=== PATIENT | female | born 1945 | race Caucasian/White ===

== ENCOUNTER → 2016-10-16 | Outpatient (CLI) | payer BC, MEDICARE ==
--- NOTE | 2016-10-16 10:29 | RADIOLOGY REPORT (SQ) ---
EXAM DESCRIPTION: HIP LEFT AP/LATERAL COMPLETED DATE/TIME: 10/16/2016 10:03 am REASON FOR STUDY: PAIN IN LEFT HIP COMPARISON: MRI of the hips 01/25/2015 CT abdomen and pelvis 09/21/2015 NUMBER OF VIEWS: Two views. TECHNIQUE: AP pelvis and additional frog-leg view of the left hip. LIMITATIONS: None. FINDINGS: MINERALIZATION: Normal. LEFT HIP: No fracture or dislocation. No worrisome bone lesions. Moderate joint space narrowing is present with minimal bony spurring. RIGHT HIP: No fracture or dislocation. No worrisome bone lesions. Moderate joint space narrowing is present with minimal bony spurring. PUBIS AND ISCHIUM: No fracture. PELVIS: No fracture. SACRUM: No fracture or dislocation. Sclerosis bilateral SI joints. LOWER LUMBAR SPINE: No fracture or dislocation. No worrisome bone lesions. No significant disc disea se. SOFT TISSUES: No findings. OTHER: No other significant finding. IMPRESSION: No acute fracture. 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 TECHNICAL DOCUMENTATION: JOB ID: [id number] [employer]- All Rights Reserved
== END ==
LOC: RAD 09:17
PROVIDERS: ATTEND Physician Assistant
DX: M25.552 Pain in left hip (principal)

== ENCOUNTER → 2016-10-26 | Outpatient (CLI) | payer BC, MEDICARE ==
--- NOTE | 2016-10-26 10:09 | WOMENS IMAGING REPORT ---
EXAM DESCRIPTION: BILAT DIAGNOSTIC MAMMO W/CAD; U/S BREAST UNILAT LIMITED COMPLETED DATE/TIME: 10/26/2016 8:40 am; 10/26/2016 9:30 am REASON FOR STUDY: N63, BREAST LUMP; LT BREAST N63 N63 UNSPECIFIED LUMP IN BREAST COMPARISON: 08/07/2013 and 08/04/2012. TECHNIQUE: Standard craniocaudal and mediolateral oblique views of each breast recorded using digita l acquisition. Additional images of the left breast include a true lateral view and spot compression MLO and CC view s. LIMITATIONS: None. FINDINGS: RIGHT BREAST MASSES: No suspicious masses. CALCIFICATIONS: No new or suspicious calcifications. ARCHITECTURAL DISTORTION: None. DEVELOPING DENSITY: None. ASYMMETRY: None noted. OTHER: No other significant findings. LEFT BREAST MASSES: Irregular spiculated mass in the upper outer breast located roughly 5 cm from the nipple. Ov erall measurement approximately 1 x 2 cm. Smaller irregular 6 mm lesion located more posteriorly, ap proximately 9.5 cm from the nipple. CALCIFICATIONS: Several calcifications associated with the spiculated mass. ARCHITECTURAL DISTORTION: None. DEVELOPING DENSITY: None. ASYMMETRY: None noted. OTHER: No other significant finding. Read with the assistance of CAD: .[facility] - R2 Cenova Version 1.3 .[facility] Imaging - R2 Cenova Version 1.3 .[facility] Imaging - R2 Cenova Version 2.4 .[facility] [place] - R2 Cenova Version 2.4 .[facility] - R2 Labor Conciliator Version 9.2 BREAST ULTRASOUND: TECHNIQUE: Static and dynamic grayscale images acquired of the left breast in the specific areas of c linical/mammographic concern. Selected color Doppler images recorded. ELASTOGRAPHY PERFORMED: No. LIMITATIONS: None. FINDINGS: MASS: There is an irregular hypoechoic solid mass in the upper-outer breast measuring roughly 2.6 x 3 .0 cm. Margins are indistinct. Images of the axilla demonstrate a few unremarkable appearing lymph nodes. ELASTOGRAPHY CHARACTERISTICS: Not applicable. OTHER: No other significant finding. IMPRESSION: Irregular spiculated solid mass in the upper-outer breast which corresponds with the pal pable finding. 2nd smaller lesion located more posteriorly. Findings are concerning for malignancy. BREAST DENSITY: b. There are scattered areas of fibroglandular density. BIRAD: 5 Highly suggestive of malignancy. Appropriate action should be taken. RECOMMENDATION: RECOMMENDED FOLLOW UP: Birads 5: Biopsy should be performed in the absence of clinic al contraindication. SPECIFIC INTERVENTION/IMAGING/CONSULTATION RECOMMENDED:The suspicious finding(s) amenable to US guide d core/vacuum assisted biopsy. COMMUNICATION:The imaging findings were discussed with the patient. Her referring provider has also b een notified of the findings. COMMENT: The patient has been notified of the results by letter per SA requirements. Additional no tification policies are in place for contacting patient with suspicious or incomplete findings. Quality ID #225: The [employer] recommends an annual screening mammogram for women aged 40 years or over. This facility utilizes a reminder system to ensure that all patients receive reminder letters, and/or direct phone calls for appointments. This includes reminders for routine scr eening mammograms, diagnostic mammograms, or other Breast Imaging Interventions when appropriate. Th is patient will be placed in the appropriate reminder system. The [employer] (ACR) has developed recommendations for screening MRI of the breast s in certain patient populations, to be used in conjunction with mammography. Breast MRI surveillanc e may be appropriate for women with more than 20% lifetime risk of developing breast cancer as deter mined by genetic testing, significant family history of the disease, or history of mantle radiation f or Hodgkins Disease. ACR Practice Guidelines 2008. TECHNICAL DOCUMENTATION: FINDING NUMBER: (1) ASSESSMENT: (1) JOB ID: [id number] [employer]- All Rights Reserved
--- NOTE | 2016-10-26 10:09 | WOMENS IMAGING REPORT ---
EXAM DESCRIPTION: BILAT DIAGNOSTIC MAMMO W/CAD; U/S BREAST UNILAT LIMITED COMPLETED DATE/TIME: 10/26/2016 8:40 am; 10/26/2016 9:30 am REASON FOR STUDY: N63, BREAST LUMP; LT BREAST N63 N63 UNSPECIFIED LUMP IN BREAST COMPARISON: 08/07/2013 and 08/04/2012. TECHNIQUE: Standard craniocaudal and mediolateral oblique views of each breast recorded using digita l acquisition. Additional images of the left breast include a true lateral view and spot compression MLO and CC view s. LIMITATIONS: None. FINDINGS: RIGHT BREAST MASSES: No suspicious masses. CALCIFICATIONS: No new or suspicious calcifications. ARCHITECTURAL DISTORTION: None. DEVELOPING DENSITY: None. ASYMMETRY: None noted. OTHER: No other significant findings. LEFT BREAST MASSES: Irregular spiculated mass in the upper outer breast located roughly 5 cm from the nipple. Ov erall measurement approximately 1 x 2 cm. Smaller irregular 6 mm lesion located more posteriorly, ap proximately 9.5 cm from the nipple. CALCIFICATIONS: Several calcifications associated with the spiculated mass. ARCHITECTURAL DISTORTION: None. DEVELOPING DENSITY: None. ASYMMETRY: None noted. OTHER: No other significant finding. Read with the assistance of CAD: .[facility] - R2 Cenova Version 1.3 .[facility] Imaging - R2 Cenova Version 1.3 .[facility] Imaging - R2 Cenova Version 2.4 .[facility] - R2 Cenova Version 2.4 .[facility] - R2 Toe Stapler Version 9.2 BREAST ULTRASOUND: TECHNIQUE: Static and dynamic grayscale images acquired of the left breast in the specific areas of c linical/mammographic concern. Selected color Doppler images recorded. ELASTOGRAPHY PERFORMED: No. LIMITATIONS: None. FINDINGS: MASS: There is an irregular hypoechoic solid mass in the upper-outer breast measuring roughly 2.6 x 3 .0 cm. Margins are indistinct. Images of the axilla demonstrate a few unremarkable appearing lymph nodes. ELASTOGRAPHY CHARACTERISTICS: Not applicable. OTHER: No other significant finding. IMPRESSION: Irregular spiculated solid mass in the upper-outer breast which corresponds with the pal pable finding. 2nd smaller lesion located more posteriorly. Findings are concerning for malignancy. BREAST DENSITY: b. There are scattered areas of fibroglandular density. BIRAD: 5 Highly suggestive of malignancy. Appropriate action should be taken. RECOMMENDATION: RECOMMENDED FOLLOW UP: Birads 5: Biopsy should be performed in the absence of clinic al contraindication. SPECIFIC INTERVENTION/IMAGING/CONSULTATION RECOMMENDED:The suspicious finding(s) amenable to US guide d core/vacuum assisted biopsy. COMMUNICATION:The imaging findings were discussed with the patient. Her referring provider has also b een notified of the findings. COMMENT: The patient has been notified of the results by letter per SA requirements. Additional no tification policies are in place for contacting patient with suspicious or incomplete findings. Quality ID #225: The [employer] recommends an annual screening mammogram for women aged 40 years or over. This facility utilizes a reminder system to ensure that all patients receive reminder letters, and/or direct phone calls for appointments. This includes reminders for routine scr eening mammograms, diagnostic mammograms, or other Breast Imaging Interventions when appropriate. Th is patient will be placed in the appropriate reminder system. The [employer] (ACR) has developed recommendations for screening MRI of the breast s in certain patient populations, to be used in conjunction with mammography. Breast MRI surveillanc e may be appropriate for women with more than 20% lifetime risk of developing breast cancer as deter mined by genetic testing, significant family history of the disease, or history of mantle radiation f or Hodgkins Disease. ACR Practice Guidelines 2008. TECHNICAL DOCUMENTATION: FINDING NUMBER: (1) ASSESSMENT: (1) JOB ID: [id number] [employer]- All Rights Reserved
== END ==
LOC: WI 09:50
PROVIDERS: ATTEND Physician Assistant
DX: N63 Unspecified lump in breast (principal)
CPT/HCPCS: 76642; G0204; 77066

== ENCOUNTER → 2016-12-11 | Outpatient (CLI) | payer BC, MEDICARE ==
--- NOTE | 2016-12-11 09:56 | RADIOLOGY REPORT (SQ) ---
EXAM DESCRIPTION: CHEST PA/LATERAL COMPLETED DATE/TIME: 12/11/2016 9:26 am REASON FOR STUDY: BREAST CA COMPARISON: 06/27/2014 EXAM PARAMETERS: NUMBER OF VIEWS: two views TECHNIQUE: Digital Frontal and Lateral radiographic views of the chest acquired. RADIATION DOSE: NA LIMITATIONS: none FINDINGS: LUNGS AND PLEURA: Abnormal masslike density in the right apex measuring about 3 cm. MEDIASTINUM AND HILAR STRUCTURES: No masses or contour abnormalities. HEART AND VASCULAR STRUCTURES: Heart normal size. No evidence for failure. BONES: No acute findings. HARDWARE: None in the chest. OTHER: No other significant finding. IMPRESSION: Pneumonia versus mass in the right apex. TECHNICAL DOCUMENTATION: JOB ID: [id number] [employer]- All Rights Reserved
== END ==
LOC: OD 09:10
PROVIDERS: ATTEND Surgery
DX: C50.912 Malignant neoplasm of unspecified site of left female breast (principal)
CPT/HCPCS: 71020

== ENCOUNTER 2016-12-29 10:23 | Day surgery (SDC) | payer BC, MEDICARE ==
[2016-12-22 10:29] LABS: HEMATOCRIT 45.2 % (36.0-47.0); HEMOGLOBIN 15.7 g/dL (12.0-15.5); HGB HCT DIFFERENCE 1.9; MEAN CORPUSCULAR HEMOGLOBIN 32.1 pg (27.0-33.4); MEAN CORPUSCULAR HGB CONC 34.8 g/dL (32.0-36.0); MEAN CORPUSCULAR VOLUME 92 fl (80-97); RED CELL DISTRIBUTION WIDTH 13.7 % (11.5-14.0); WHITE BLOOD COUNT 8.5 10^3/uL (4.0-10.5)
--- NOTE | 2016-12-22 10:59 | EKG REPORT ---
SEVERITY:- ABNORMAL ECG - SINUS RHYTHM PROBABLE LEFT VENTRICULAR HYPERTROPHY : Confirmed by: Brad Arnold 22-Dec-2016 10:58:27
[~2016-12-29 10:23] MED LIST: DEXAMETHASONE SOD PHOSPHATE INJ 4 MG/1 ML VIAL ONE; GLYCOPYRROLATE INJ 0.4 MG/2 ML VIAL ONE; LACTATED RINGERS 1000 ML IV PRN; LIDOCAINE 0.5% INJ-PF (5 MG/ML) 50 ML SDV SUBCUT PRN; LIDOCAINE 2% INJ-PF (20 MG/ML) 10 ML AMPUL ONE; LIDOCAINE 4% TRANSPARENT DRESSING 5 GM KIT TP PRN; ONDANSETRON HCL INJ/PF 4 MG/2 ML SDV ONE; SUCCINYLCHOLINE CHLORIDE INJ 200 MG/10 ML VIAL ONE
[2016-12-29 11:12] LABS: PROTHROMBIN TIME 12.9 SEC (11.4-15.4)
[2016-12-29 11:13] LABS: PARTIAL THROMBOPLASTIN TIME 28.7 SEC (23.5-35.8)
[2016-12-29 11:23] LABS: ANION GAP 10 (5-19); BLOOD UREA NITROGEN 28 mg/dL (7-20); CALCIUM 9.8 mg/dL (8.4-10.2); CARBON DIOXIDE 25 mmol/L (22-30); CHLORIDE 107 mmol/L (98-107); CREATININE RESULT 1.33 mg/dL (0.52-1.25); GLUCOSE 108 mg/dL (75-110); POTASSIUM 4.5 mmol/L (3.6-5.0)
[2016-12-29] MEDS ORDERED: CEFAZOLIN 1 GM/D5W RTU 1 GM/50 ML RTUPB IV ONE (15:51)
[2016-12-29] MEDS ORDERED: SCOPOLAMINE HYDROBROMIDE 1.5 MG PATCH.TD72 ONE (15:59)
[2016-12-29] MEDS ORDERED: ACETAMINOPHEN 100 ML IV ONE (17:12)
[2016-12-29] MEDS ORDERED: PROPOFOL INJ 200 MG/20 ML VIAL IV ONE (17:12)
[2016-12-29] MEDS ORDERED: IBUPROFEN INJ 800 MG/8 ML VIAL IV ONE (17:12)
[2016-12-29] MEDS ORDERED: MIDAZOLAM 2 MG/2 ML INJ ONE (17:12)
[2016-12-29] MEDS ORDERED: FENTANYL CITRATE INJ/PF 250 MCG/5 ML AMPULE ONE (17:12)
[2016-12-29] MEDS ORDERED: HYDROMORPHONE HCL INJ/PF 2 MG/ML AMPULE ONE (17:13)
[2016-12-29] MEDS ORDERED: METHYLENE BLUE 50 MG/10 ML AMPULE ONE (17:17)
[2016-12-29] MEDS ORDERED: MICROFIBRILLAR COLLAGEN 1 GM PACK ONE (17:17)
[2016-12-29] MEDS ORDERED: LIDOCAINE 1%/EPINEPHRINE INJ 20 ML VIAL ONE (17:18)
[2016-12-29] MEDS ORDERED: ALBUTEROL SULFATE 0.083% NEB 2.5 MG/3 ML AMPUL NEB ONE (17:36)
[2016-12-29] MEDS ORDERED: FENTANYL CITRATE INJ/PF 100 MCG/2 ML AMPUL IV PRN ×3 (18:59)
[2016-12-29] MEDS ORDERED: MEPERIDINE HCL/PF INJ 25 MG/1 ML DISP.SYRIN IV PRN (18:59)
[2016-12-29] MEDS ORDERED: PROMETHAZINE HCL INJ 25 MG/1 ML VIAL IV PRN (18:59)
[2016-12-29] MEDS ORDERED: DIPHENHYDRAMINE HCL 50 MG/ML VIAL IV PRN (18:59)
[2016-12-29] MEDS ORDERED: HYDROMORPHONE HCL INJ/PF 2 MG/ML AMPULE IV ONE (19:41)
[2016-12-29] MEDS ORDERED: OXYCODONE-ACETAMINOPHEN 5-325 MG TABLET PO PRN (19:41)
[2016-12-29] MEDS ORDERED: KETOROLAC TROMETHAMINE 10 MG TABLET PO PRN (19:41)
[2016-12-29] MEDS ORDERED: ONDANSETRON HCL INJ/PF 4 MG/2 ML SDV IV PRN (19:41)
[2016-12-29] MEDS ORDERED: RINGERS SOLUTION,LACTATED 1,000 ML IV PRN (19:56)
[2016-12-29] MEDS: FENTANYL CITRATE INJ/PF 100 MCG/2 ML AMPUL ONE ×2 (20:04→20:09)
--- NOTE | 2016-12-29 21:02 | OPERATIVE REPORT E ---
Operative Report NAME: IKER CALDWELL : 1945 AGE: 71Y DATE OF SURGERY: 12/29/2016 ROOM: PREOPERATIVE DIAGNOSIS: Invasive left breast carcinoma. POSTOPERATIVE DIAGNOSIS: Invasive left breast carcinoma. OPERATION: 1. [place] lymph node biopsy of left axilla. 2. Left mastectomy with drain placement. SURGEON: ELLY LANDEROS M.D. ANESTHESIA: General. COMPLICATIONS: None. ESTIMATED BLOOD LOSS: Minimal. DRAINS: One large Genaro. COMPLICATIONS: None. SUMMARY OF PROCEDURE: Patient was taken from the preop holding area to the radiology suite where she underwent lymph node scintography of the left breast and axilla. She had an area of increased uptake in the left axilla. She was taken to the operating room where general anesthesia was induced. The left arm was abducted, the left breast exposed, and blue dye, 50% diluted, methylene blue, was injected into the left breast at the 2 o'clock position, areolar border, approximately 2.5 mL in the intradermal position. The left breast was massaged, then the left breast and neck were prepped and draped in sterile fashion. Surgical plan and surgical time-out were conducted. Markings were made on the skin for a large elliptical incision consistent with a mastectomy. Of note, the tumor was in the upper outer quadrant of the left breast. It was quite generous by palpable. Superior and inferior skin flaps were raised and the breast was taken off the chest wall from the subclavicular area to the parasternal tissue and then inferiorly down to the serratus anterior muscle. The left axilla was exposed. [place] node biopsy was commenced. There was one area of increased activity, and a blue hot lymph node was identified. In vivo count was 6458 and ex vivo count after harvesting the sentinel lymph node was 8405. There were no other sentinel lymph nodes identified. The breast was taken off just distal to the tail of Fraser and passed to pathology with a long suture in the lateral position, a short suture in the superior position. [place] node was sent separately, all for permanent analysis. A large Genaro drain was placed in the inferior skin flap and sewed to the skin with 2-0 Prolene suture. The wound was closed with 2-0 Vicryl suture in a running continuous fashion. Dermabond glue applied. Patient tolerated the procedure well, extubated, and taken to the recovery room in stable condition. DICTATING PHYSICIAN: ELLY LANDEROS M.D. [id number] PHY#: [id number] ID: [id number] JOB#: [id number] ACCT: [id number] cc:ELLY LANDEROS M.D. >
[2016-12-29] MEDS ORDERED: SIMVASTATIN 10 MG TABLET PO SCH (22:00)
[2016-12-29] MEDS ORDERED: NIFEDIPINE 10 MG CAPSULE PO ONE (22:15)
[2016-12-30 08:44] VITALS: BP 95/53
[2016-12-30] MEDS ORDERED: OMEGA PO SCH (10:00)
[2016-12-30] MEDS ORDERED: OMEGA-3 ACID ETHYL ESTERS 1 GM CAPSULE PO SCH (10:00)
[2016-12-30] MEDS ORDERED: ASPIRIN 81 MG TABLET, CHEWABLE PO SCH (10:00)
[2016-12-30] MEDS ORDERED: DOCUSATE SODIUM 100 MG CAPSULE PO SCH (10:00)
[2016-12-30] MEDS ORDERED: NIFEDIPINE 10 MG CAPSULE PO SCH (10:00)
[2016-12-30] MEDS ORDERED: FLUTICASONE PROPIONATE IH SCH (10:00)
[2016-12-30] MEDS ORDERED: CLOPIDOGREL BISULFATE 75 MG TABLET PO SCH (10:00)
[2016-12-30] MEDS ORDERED: FATTY ACIDS PO SCH (10:00)
[2016-12-30] MEDS ORDERED: MULTIVITAMIN TABLET PO SCH (10:00)
[2016-12-30] MEDS ORDERED: FISH OIL PO SCH (10:00)
[2016-12-30] MEDS ORDERED: ONDANSETRON HCL INJ/PF 4 MG/2 ML SDV IV PRN (11:00)
--- NOTE | 2016-12-30 12:02 | DISCHARGE SUMMARY E ---
Discharge Summary NAME: IKER CALDWELL : 1945 AGE: 71Y ADMITTED: 12/29/2016 DISCHARGED: 12/30/2016 SUMMARY OF HOSPITALIZATION: The patient is a 71-year-old white female with a history of left breast carcinoma who was brought to Ambulatory Surgery for definitive management. The patient was taken from Ambulatory Surgery to the radiology suite where she underwent lymphoscintigraphy, and this showed mapping into the left axilla. She was taken to the operating room where she underwent left mastectomy with sentinel node biopsy using dual-mapping technique. She had a drain placed. Postoperatively she had no complications, was recovered on the floor, and the following morning she was ready for discharge home. FINAL DIAGNOSIS: Invasive breast cancer, status post left mastectomy with sentinel node biopsy. DISPOSITION: The patient will be discharged home in the care of her family. Follow up with Dr. Yoon in approximately 1 to 2 weeks. Take Percocet p.r.n. pain; prescription provided. DICTATING PHYSICIAN: ELLY YOON M.D. [id number] PHY#: [id number] ID: [id number] JOB#: [id number] ACCT: [id number] cc:ELLY YOON M.D. >
--- NOTE | 2017-01-03 13:08 | RADIOLOGY REPORT (SQ) ---
EXAM DESCRIPTION: NM LYMPHATICS/LYMPH GLANDS COMPLETED DATE/TIME: 12/29/2016 12:54 pm REASON FOR STUDY: Malignant neoplasm left breast C50.911 MALIGNANT NEOPLASM OF UNSP SITE OF RIGHT F RODO MARTINEZ COMPARISON: Two-view chest 12/11/2016 left breast diagnostic mammograms and ultrasound 10/26/2016 RADIONUCLIDE AND DOSE: 500 in 10 microcuries TC-99mtilmanocept - Lymphoseek. The route of agent administration: Subcutaneous in the skin. TECHNIQUE: The skin of the left breast was prepped in sterile fashion. The radiopharmaceutical was administered in equally divided doses in the periareolar breast. LIMITATIONS: Injected activity is identified at the nipple. However, there is activity in the urina ry bladder and transverse colon. This case is being reviewed with the nuclear pharmacy. FINDINGS: Images demonstrate activity at the injection site. IMPRESSION: ADMINISTRATION OF RADIOPHARMACEUTICAL FOR SENTINEL LYMPH NODE EVALUATION. TECHNICAL DOCUMENTATION: JOB ID: [id number] [employer]- All Rights Reserved
== END 2016-12-30 09:45 | disposition home or self-care (01) ==
LOC: OROUT 10:23 → 4N 20:56 → OROUT 12-30 09:45
PROVIDERS: ATTEND Surgery
PROC: 07B60ZX Excision of Left Axillary Lymphatic, Open Approach, Diagnostic (ICD-10-PCS; 2016-12-29)
PROC: 0HTU0ZZ Resection of Left Breast, Open Approach (ICD-10-PCS; principal; 2016-12-29 13:30)
DX: J44.9 Chronic obstructive pulmonary disease, unspecified (principal); F17.210 Nicotine dependence, cigarettes, uncomplicated; Z86.718 Personal history of other venous thrombosis and embolism; I10 Essential (primary) hypertension; M19.90 Unspecified osteoarthritis, unspecified site; Z86.73 Personal history of transient ischemic attack (TIA), and cerebral infarction without residual deficits; E04.1 Nontoxic single thyroid nodule; I25.2 Old myocardial infarction; E78.5 Hyperlipidemia, unspecified; Z88.8 Allergy status to other drugs, medicaments and biological substances; Z79.51 Long term (current) use of inhaled steroids; Z79.02 Long term (current) use of antithrombotics/antiplatelets; Z79.82 Long term (current) use of aspirin; C50.812 Malignant neoplasm of overlapping sites of left female breast
CPT/HCPCS: 93005; 36415 ×2; 85027; 85610; 85730; 80048; 88342 ×2; 88307 ×2; 78195; 93010; 19307; A9520; J2250; J0690; J1100; J3010 ×2; J3490 ×3; J0330; J2405; J2704; J0131; J1741; Q9968; 1610; J1170

== ENCOUNTER 2017-02-19 14:00 | Emergency (ER) | payer BC, MEDICARE ==
[2017-02-19 14:06] VITALS: BP 158/71
--- NOTE | 2017-02-19 14:46 | ER Document Report ---
ED General - General Chief Complaint: Hip Pain Stated Complaint: HIP PAIN Time Seen by Provider: 02/19/17 14:39 Notes: Patient is a 71-year-old female presents emergency department complaining of left lower back pain with sciatica. Patient states that she has had sciatica for years and over the past couple of days it has been more severe. Patient states that she does have a history of breast cancer that was resected in December receiving chemotherapy Dr. Fisher. Patient has been taking Tylenol at home with some relief in her pain. Patient states that she still would like to try a muscle relaxer which is been beneficial for her in the past. Patient is able to ambulate. Denies any urinary/incontinence, saddle anesthesia. Denies any trauma or fall TRAVEL OUTSIDE OF THE [place] IN LAST 30 DAYS: No - Related Data Allergies/Adverse Reactions: cilostazol [From Pletal] Adverse Reaction (Intermediate, Verified 02/19/17 14:04 ) Dizziness Past Medical History - Social History Smoking Status: Current Every Day Smoker Chew tobacco use (# tins/day): No Frequency of alcohol use: None Drug Abuse: None Family History: Other - Mother with colitis, sister with Crohn's. - Past Medical History Cardiac Medical History: Reports: Hx Heart Attack, Hx Hypercholesterolemia, Hx Hypertension Denies: Hx Coronary Artery Disease Pulmonary Medical History: Reports: Hx COPD, Hx Pneumonia - A BABY Denies: Hx Asthma, Hx Bronchitis Neurological Medical History: Denies: Hx Cerebrovascular Accident, Hx Seizures Renal/ Medical History: Denies: Hx Peritoneal Dialysis Musculoskeltal Medical History: Reports Hx Arthritis Past Surgical History: Reports: Hx Abdominal Surgery - barium study 10/18/11, Hx Breast Surgery - Left mastectomy, Hx Cardiac Surgery - carotid artery cleaned , Hx Tubal Ligation - Immunizations Hx Diphtheria, Pertussis, Tetanus Vaccination: Yes Hx Pneumococcal Vaccination: 05/16/15 Review of Systems - Review of Systems Constitutional: No symptoms reported Musculoskeletal: See HPI Neurological/Psychological: See HPI -: Yes All other systems reviewed and negative Physical Exam - Vital signs Vitals: Temp Pulse Resp BP Pulse Ox 97.6 F 85 24 H 158/71 H 91 L 02/19/17 14:05 02/19/17 14:05 02/19/17 14:05 02/19/17 14:05 02/19/17 14:05 - Notes Notes: PHYSICAL EXAM GENERAL: Alert, interacts well. Back: No evidence of spinous process tenderness, deformities, step-offs. Patient with left paralumbar muscular tenderness with pain reproducible on exam. EXTREMITIES: Moves all 4 extremities spontaneously.Pelvis stable without any pain. Hip nontender to palpation or with passive or active range of motion.No edema, radial and dorsalis pedis pulses 2/4 bilaterally. No cyanosis. NEUROLOGICAL: Alert and oriented x4. Normal speech. PSYCH: Normal affect, normal mood. SKIN: Warm, dry, normal turgor. No rashes or lesions noted. Course - Re-evaluation Re-evalutation: 02/19/17 15:27 Patient is a 71-year-old female who is hemodynamically stable, no acute distress afebrile. Given recent cancer history, pelvis x-ray was ordered to rule out any mass with comparison to previous pelvis x-ray. This was negative. Given that patient states that this pain is reproducible to palpation and similar to her sciatica no other imaging is required at this time. The patient presents with low back pain without signs of spinal cord compression, cauda equina syndrome, infection, aneurysm, or other serious etiology. The patient is neurologically intact. Given the extremely low risk of these diagnoses further testing and evaluation for these possibilities does not appear to be indicated at this time. The patient has been instructed to return if the symptoms worsen or change in any way. - Vital Signs Vital signs: Temp Pulse Resp BP Pulse Ox 97.6 F 85 24 H 158/71 H 91 L 02/19/17 14:05 02/19/17 14:05 02/19/17 14:05 02/19/17 14:05 02/19/17 14:05 - Diagnostic Test Radiology reviewed: Image reviewed, Reports reviewed Discharge - Discharge Clinical Impression: Low back pain Qualifiers: Chronicity: chronic Back pain laterality: left Sciatica presence: with sciatica Sciatica laterality: sciatica of left side Qualified Code(s): M54.42 - Lumbago with sciatica, left side Condition: Good Disposition: HOME, SELF-CARE Additional Instructions: LOW BACK PAIN: Three out of every four people will have an episode of disabling back pain during their lifetime. Most commonly the pain is due to straining of the muscles and ligaments in the low back. Usual treatment includes: (1) Rest on a firm surface. Avoid lying on your stomach. (2) Ice pack the painful area. After a few days, gentle heat may be used intermittently to relax the area, or ice packs can be continued. (3) Medication may be needed -- muscle relaxers and antiinflammatory medicines are commonly used. (4) As the back improves, exercises are prescribed to strengthen the back and abdominal muscles. Your doctor will advise you on the proper care for your back at each stage in your recovery. You may be better in a few days -- or healing may take several weeks. If new symptoms of a "herniated disc" (radiation of pain, numbness, or tingling down the back of the leg or weakness in the leg) occur, you should be re-examined. Further testing may be necessary. MUSCLE RELAXERS: Muscle relaxing medications are usually prescribed for acute muscle spasm or injury to the neck and back. They are often combined with antiinflammatory pain medication for increased relief. You may stop the muscle relaxer when the pain and stiffness have improved. Start the medication again if spasms recur. Muscle relaxers may cause drowsiness, especially with the first dose. Do not operate machinery or drive while under the effects of the medication. Most muscle relaxers last up to 24 hours. Do not combine the medication with alcohol. ICE PACKS: Apply ice packs frequently against the painful area. Many different schedules are recommended, such as "20 minutes on, 20 minutes off" or "one hour ice, two hours rest." If you need to work, you may need to go longer between ice treatments. You should plan to have the area ice packed AT LEAST one fourth of the time. The ice should be applied over the wrap, tape, or splint, or over a layer of cloth -- not directly against the skin. Some ice bags have a built-in cloth and can be put directly on the skin. WARM PACKS: After approximately two days, apply gentle heat (such as a heating pad or hot water bottle) for about 20 to 30 minutes about every two hours -- at least four times daily. Warmth and elevation will help you make a more rapid recovery , and will ease the pain considerably. Do not use HOT heat, and never apply heat for longer than 30 minutes. The continuous heat can invisibly damage skin and muscles -- even when no burn is seen on the surface. Damaged muscles can make you MORE sore. FOLLOW-UP CARE: If you have been referred to a physician for follow-up care, call the physician s office for an appointment as you were instructed or within the next two days. If you experience worsening or a significant change in your symptoms, notify the physician immediately or return to the Emergency Department at any time for re-evaluation. Prescriptions: Cyclobenzaprine HCl [Flexeril 10 mg Tablet] 10 mg PO TIDP PRN #15 tab PRN Reason: Referrals: CHUY ROBERTS MD [ACTIVE STAFF] - Follow up in 1 week
--- NOTE | 2017-02-19 15:11 | RADIOLOGY REPORT (SQ) ---
EXAM DESCRIPTION: PELVIS AP COMPLETED DATE/TIME: 02/19/2017 3:00 pm REASON FOR STUDY: left sciatic pain x1 wk/ h/o breast ca on chemo COMPARISON: 10/16/2016 NUMBER OF VIEWS: One view TECHNIQUE: AP Pelvis LIMITATIONS: None. FINDINGS: MINERALIZATION: Normal. HIPS: Stable degenerative change. No acute fracture or dislocation. No worrisome bone lesions. PELVIS AND SACRUM: Stable degree of sacroiliitis. No acute fracture or dislocation. No worrisome bon e lesions. PUBIS AND ISCHIUM: No acute fracture. LOWER LUMBAR SPINE: No significant findings as visualized. SOFT TISSUES: Vascular calcifications. OTHER: No other significant finding. IMPRESSION: NO ACUTE OSSEOUS ABNORMALITY. NO SIGNIFICANT CHANGE FROM PRIOR STUDY. TECHNICAL DOCUMENTATION: JOB ID: [id number] [employer]- All Rights Reserved
[2017-02-19] MEDS ORDERED: CYCLOBENZAPRINE HCL 10 MG TABLET PO ONE (15:24)
== END 2017-02-19 15:50 | disposition home or self-care (01) ==
LOC: ER 14:00
DX: M54.42 Lumbago with sciatica, left side (principal); M25.559 Pain in unspecified hip; M54.5 Low back pain; Z79.899 Other long term (current) drug therapy; F17.200 Nicotine dependence, unspecified, uncomplicated
CPT/HCPCS: 72170; 99283

== ENCOUNTER → 2017-03-01 | Outpatient (CLI) | payer BC, MEDICARE ==
--- NOTE | 2017-03-01 10:46 | WOMENS IMAGING REPORT ---
EXAM DESCRIPTION: BONE DENSITY HIP/SPINE COMPLETED DATE/TIME: 03/01/2017 10:24 am REASON FOR STUDY: OSTEOPOROSIS M81.0 AGE-RELATED OSTEOPOROSIS W/O CURRENT PATHOLOGICAL FRAC COMPARISON: 2008, 2012, 2014 TECHNIQUE: Dual-Energy X-ray Absorptiometry (DEXA) of the AP Spine and Hip. LIMITATIONS: None. FINDINGS: LUMBAR SPINE: The bone mineral density (BMD) measured from L1-L4 in the AP projection correlates with a T-score of -2.5, which is osteoporotic as defined by the World Health Organization. This is stable compared to previous studies HIP: The bone mineral density (BMD) measured in the left femoral neck at the hip correlates with a T-score of -2.8, which is osteoporotic as defined by the World Health Organization. This represents an 11% decline since bone density assessment in 2012 and 2014 IMPRESSION: 1. LUMBAR SPINE: Osteoporotic 2. HIP: Osteoporotic COMMENT: The World Health Organization defines low BMD as follows: T-score: Normal: Greater than -1.0 Osteopenia: Between -1.0 and -2.5 Osteoporosis: Less than -2.5 without fractures Established osteoporosis: Less than -2.5 with fractures In general, you may wish to consider: Diagnosis Treatment Follow-up DEXA Normal BMD Prevention 2-3 years Osteopenia Prevention/Therapy 1-2 years Osteoporosis Therapy Yearly TECHNICAL DOCUMENTATION: JOB ID: [id number]- All Rights Reserved
== END ==
LOC: WI 09:48
PROVIDERS: ATTEND Internal Medicine
DX: M81.0 Age-related osteoporosis without current pathological fracture (principal)
CPT/HCPCS: 77080

== ENCOUNTER → 2017-10-26 | Outpatient (CLI) | payer MEDICARE, BC ==
--- NOTE | 2017-10-27 19:53 | WOMENS IMAGING REPORT ---
EXAM DESCRIPTION: 3D SCREENING MAMMO RIGHT COMPLETED DATE/TIME: 10/26/2017 9:21 am REASON FOR STUDY: ROUTINE SCREENING;Z12.31 Z12.31 ENCNTR SCREEN MAMMOGRAM FOR MALIGNANT NEOPLASM OF HUYEN COMPARISON: Multiple since 2008 TECHNIQUE: Standard craniocaudal and mediolateral oblique views of the right breast recorded using d igital acquisition and breast tomosynthesis. Post left mastectomy in 2017. LIMITATIONS: None. FINDINGS: BREAST: Right No masses, calcifications or architectural distortion. No areas of suspicion. Read with the assistance of CAD. .[facility] - R2 Cenova Version 1.3 .[facility] - R2 Cenova Version 1.3 .[facility] - R2 Cenova Version 2.4 .[facility] - R2 Cenova Version 2.4 .[facility] - R2 [employer] Version 9.2 IMPRESSION: NORMAL MAMMOGRAM. BIRADS 1. BREAST DENSITY: b. There are scattered areas of fibroglandular density. BIRAD: 1 Negative RECOMMENDATION: RECOMMENDATION: ROUTINE SCREENING. Please continue yearly screening tomosynthesis in October 2018 COMMENT: The patient has been notified of the results by letter per MQSA requirements. Additional no tification policies are in place for contacting patient with suspicious or incomplete findings. Quality ID #[id number]: The [employer] recommends an annual screening mammogram for women aged 40 years or over. This facility utilizes a reminder system to ensure that all patients receive reminder letters, and/or direct phone calls for appointments. This includes reminders for routine scr eening mammograms, diagnostic mammograms, or other Breast Imaging Interventions when appropriate. Th is patient will be placed in the appropriate reminder system. The [employer] (ACR) has developed recommendations for screening MRI of the breast s in certain patient populations, to be used in conjunction with mammography. Breast MRI surveillance may be appropriate for women with more than 20% lifetime risk of developing breast cancer as determi anel by genetic testing, significant family history of the disease, or history of mantle radiation for Hodgkins Disease. ACR Practice Guidelines 2008. DBT Technology DBT is a type of tomographic mammography. With conventional mammography, overlapping breast tissue ma y make lesions difficult to detect, even with good compression. DBT uses an x-ray tube that rotates a round the breast, taking images at different angles. These images are then combined to create thin sl ices of the breast that the radiologist can view as a 3D reconstruction. The Anhelo unit can perform full-field digital mammograms (2D imaging); or DBT (3D imaging); or both, in a combination mode that quickly performs both the mammogram and the tomosynthesis scan while the breast is still compressed. PQRS 6045F: Fluoroscopic imaging is not utilized for breast tomosynthesis. TECHNICAL DOCUMENTATION: FINDING NUMBER: (1) ASSESSMENT: (1) JOB ID: [id number] [employer]- All Rights Reserved Reading location - IP/workstation name: [facility]-2
== END ==
LOC: WI 08:02
PROVIDERS: ATTEND Surgery
DX: Z12.31 Encounter for screening mammogram for malignant neoplasm of breast (principal)

== ENCOUNTER → 2018-03-16 | Outpatient (CLI) | payer BC, MEDICARE ==
--- NOTE | 2018-03-16 11:19 | RADIOLOGY REPORT (SQ) ---
EXAM DESCRIPTION: CT CHEST WITHOUT COMPLETED DATE/TIME: 03/16/2018 9:58 am REASON FOR STUDY: SHORTNESS OF BREATH Z87.891 PERSONAL HISTORY OF NICOTINE DEPENDENCE COMPARISON: 06/27/2014 TECHNIQUE: CT scan performed of the chest without intravenous contrast. Images reviewed with lung, soft tissue and bone windows. Reconstructed coronal and sagittal MPR images reviewed. All images st ored on PACS. All CT scanners at this facility use dose modulation, iterative reconstruction, and/or weight based d osing when appropriate to reduce radiation dose to as low as reasonably achievable (ALARA). [facility]: Dose Right [facility]: CareDose [facility]: Dose Right [facility]: Teradose 4D [facility]: Dotspin RADIATION DOSE: CT Rad equipment meets quality standard of care and radiation dose reduction techniq ues were employed. CTDIvol: 3.9 mGy. DLP: 156 mGy-cm. mGy. LIMITATIONS: No technical limitations. FINDINGS: LUNGS AND PLEURA: Right apical spiculated mass 5.3 x 5.9 cm. There are scattered pulmonar y nodules in both lungs measuring up to about 5 mm which are all stable. No effusions. HILAR AND MEDIASTINAL STRUCTURES: Stable small mediastinal nodes measuring up to 1 cm short axis. No bulky adenopathy. HEART AND VASCULAR STRUCTURES: No aneurysm. No pericardial effusion. UPPER ABDOMEN: No significant findings. Limited exam. THYROID AND OTHER SOFT TISSUES: No masses. No adenopathy. BONES: No acute findings. HARDWARE: None in the chest. OTHER: No other significant findings. IMPRESSION: Right apical mass suspicious for malignancy. TECHNICAL DOCUMENTATION: JOB ID: [id number] Quality ID # [id number]: Final reports with documentation of one or more dose reduction techniques (e.g., Au tomated exposure control, adjustment of the mA and/or kV according to patient size, use of iterative reconstruction technique) 2010 [employer]- All Rights Reserved Reading location - IP/workstation name: [facility]-RR2
== END ==
LOC: RAD 09:27
PROVIDERS: ATTEND Internal Medicine
DX: R06.02 Shortness of breath (principal); R91.8 Other nonspecific abnormal finding of lung field
CPT/HCPCS: 71250

== ENCOUNTER → 2018-03-26 | Outpatient (CLI) | payer BC, MEDICARE ==
--- NOTE | 2018-03-27 11:49 | RADIOLOGY REPORT (SQ) ---
EXAM DESCRIPTION: PET CT SKULL/THIGH COMPLETED DATE/TIME: 03/26/2018 9:44 pm REASON FOR STUDY: BREAST CANCER C50.412 MALIG NEOPLASM OF UPPER-OUTER QUADRANT OF LEFT FEMAL COMPARISON: CT lung cancer screening 03/16/2018 RADIONUCLIDE AND DOSE: 10.8 mCi F18 FDG The route of agent administration: Intravenous FASTING BLOOD SUGAR: 91 mg/dl CONTRAST TYPE AND DOSE: No CT contrast given. TECHNIQUE: Blood glucose level was verified. Above dose of FDG was injected intravenously. 2-D seg mented attenuation correction images were obtained from the base of the skull to the midthighs. Nonc ontrast CT images were obtained for attenuation correction and fusion with emission images. CT image s were performed without oral or intravenous contrast and are not sensitive for parenchymal lesions. A series of overlapping emission PET images were obtained. Images reviewed and manipulated at [facility] work station by the radiologist. Images stored on PACS. LIMITATIONS: None. FINDINGS: HEAD AND NECK: No areas of abnormal metabolic activity in the soft tissues of the head and neck. CHEST: A malignant right apical lung mass is present 6 x 5.4 cm in size with SUV 10.2. No gross bony invasion of the right 1st rib. A 1 cm right hilar lymph node is present with SUV 3.2. ABDOMEN AND PELVIS: No areas of abnormal metabolic activity in the abdomen or pelvis. Expected physi ologic activity is present in the genitourinary system and bowel. PROXIMAL LOWER EXTREMITIES: No areas of abnormal metabolic activity in the soft tissues of the lower extremities. BONES: No abnormal metabolic activity in the visualized skeleton. ADDITIONAL CT FINDINGS: Old left mastectomy. Calcified aortic valve and coronary arteries. OTHER: Liver background activity SUV 2.3. Blood pool background activity SUV 1.9 IMPRESSION: Malignant appearing right apical lung mass, 1 cm metabolically active right hilar lymph node. TECHNICAL DOCUMENTATION: JOB ID: [id number] [employer]- All Rights Reserved Reading location - IP/workstation name: [facility]-RR
== END ==
LOC: RAD 16:59
PROVIDERS: ATTEND Internal Medicine
DX: C50.412 Malignant neoplasm of upper-outer quadrant of left female breast (principal)
CPT/HCPCS: 78815; A9552

== ENCOUNTER 2018-04-21 09:06 | Emergency (ER) | payer MEDICARE, BC ==
--- NOTE | 2018-04-21 09:29 | RADIOLOGY REPORT (SQ) ---
EXAM DESCRIPTION: CHEST SINGLE VIEW COMPLETED DATE/TIME: 04/21/2018 9:19 am REASON FOR STUDY: STROKE ALERT COMPARISON: 04/17/2015 EXAM PARAMETERS: NUMBER OF VIEWS: One view. TECHNIQUE: Single frontal radiographic view of the chest acquired. RADIATION DOSE: NA LIMITATIONS: None. FINDINGS: LUNGS AND PLEURA: Right upper lobe mass previously demonstrated on CT of the chest is note d. No pneumothorax. No effusions. MEDIASTINUM AND HILAR STRUCTURES: No masses. Contour normal. HEART AND VASCULAR STRUCTURES: Heart normal in size. Normal vasculature. BONES: No acute findings. HARDWARE: None in the chest. OTHER: No other significant finding. IMPRESSION: Known right upper lobe mass. No other significant findings in the chest. TECHNICAL DOCUMENTATION: JOB ID: [id number] [employer]- All Rights Reserved Reading location - IP/workstation name: [email or web address]
--- NOTE | 2018-04-21 09:29 | RADIOLOGY REPORT (SQ) ---
EXAM DESCRIPTION: CT HEAD WITHOUT COMPLETED DATE/TIME: 04/21/2018 9:18 am REASON FOR STUDY: stroke RIGHT-SIDED ARM WEAKNESS, difficulty moving right arm and leg, right facial droop, history of left carotid endarterectomy COMPARISON: None. TECHNIQUE: Axial images acquired through the brain without intravenous contrast. Images reviewed wi th bone, brain and subdural windows. Additional sagittal and coronal reconstructions were generated. Images stored on PACS. All CT scanners at this facility use dose modulation, iterative reconstruction, and/or weight based d osing when appropriate to reduce radiation dose to as low as reasonably achievable (ALARA). [facility]: Dose Right [facility]: CareDose [facility]: Dose Right [facility]: Teradose 4D [facility]: Power2Switch RADIATION DOSE: CT Rad equipment meets quality standard of care and radiation dose reduction techniq ues were employed. CTDIvol: 53.2 mGy. DLP: 1017 mGy-cm. mGy. LIMITATIONS: None. FINDINGS: VENTRICLES: Normal size and contour. CEREBRUM: No masses. No hemorrhage. No midline shift. No evidence for acute infarction. Spotty low attenuation in the bifrontal and biparietal white matter from chronic small vessel ischemic change. Minimal bilateral basal ganglia calcification CEREBELLUM: No masses. No hemorrhage. No alteration of density. No evidence for acute infarction. EXTRAAXIAL SPACES: No fluid collections. No masses. ORBITS AND GLOBE: No intra- or extraconal masses. Normal contour of globe without masses. CALVARIUM: No fracture. PARANASAL SINUSES: No fluid or mucosal thickening. SOFT TISSUES: No mass or hematoma. OTHER: Very heavily calcified habematolel of Phan arterial vessels IMPRESSION: No acute findings EVIDENCE OF ACUTE STROKE: NO. COMMENT: Pertinent findings on the imaging study reported as a CRITICAL RESULT to Dr. Box at09:18 on 04/21/2018. Category of Critical Result: CT code stroke Quality ID # 436: Final reports with documentation of one or more dose reduction techniques (e.g., Au tomated exposure control, adjustment of the mA and/or kV according to patient size, use of iterative reconstruction technique) TECHNICAL DOCUMENTATION: JOB ID: [id number] [employer]- All Rights Reserved Reading location - IP/workstation name: [facility]
--- NOTE | 2018-04-21 09:39 | ER Document Report ---
ED General - General Mode of Arrival: Ambulatory Information source: Patient TRAVEL OUTSIDE OF THE [place] IN LAST 30 DAYS: No <MARK ACKERMAN - Last Filed: 04/21/18 10:25> <ROWENA FISH - Last Filed: 04/21/18 18:55> <JAQUI NAGEL - Last Filed: 04/21/18 22:10> - General Chief Complaint: S/S of Possible Stroke Stated Complaint: WEAKNESS Time Seen by Provider: 04/21/18 09:18 Notes: Patient is a 72 year old female with hypertension, COPD, hyperlipidemia and a history of MA and breast cancer presents to the emergency department complaining of weakness and slurred speech onset yesterday. Patient states that she feels that her right arm is shaky and weak as well as her right leg. She further describes her slurred speech as "not being able to get my words out ". at bedside states that the patient was attempting to talk but unable to form words. also states the patient has had an increase in stress lately, futher stating the patient's son recently had a stroke. Patient states she had a right lung biopsy on 04/19/2018 due to a large mass in the right lung. Patient states her provider are assuming she has lung cancer. Patients oncologist is Dr. Fisher. Patient's PCP is Dr. Whitney. (MARK ACKERMAN) The patient is not a TPA candidate. She has no motor deficits or speech problems at this time. She had a lung biopsy done 3 days ago. She has a large lung cancer at this time. The patient had her aspirin and Plavix stopped for the lung biopsy that was done 3 days ago. She started back on the medication yesterday. The patient has a known complete right internal carotid artery occlusion. She did have a left carotid endarterectomy in 2010, and a carotid Doppler study done in August 2016 that showed the chronically occluded right internal carotid, but a "widely patent" left carotid artery. (ROWENA FISH) - Related Data Allergies/Adverse Reactions: cilostazol [From Pletal] Adverse Reaction (Intermediate, Verified 04/21/18 09:10 ) Dizziness Past Medical History - Social History Smoking Status: Current Every Day Smoker Cigarette use (# per day): Yes - 1/2 PPD Chew tobacco use (# tins/day): No Smoking Education Provided: No Frequency of alcohol use: None Family History: Other Patient has suicidal ideation: No Patient has homicidal ideation: No - Past Medical History Cardiac Medical History: Reports: Hx Heart Attack, Hx Hypercholesterolemia, Hx Hypertension Pulmonary Medical History: Reports: Hx COPD, Hx Pneumonia - A BABY Musculoskeletal Medical History: Reports Hx Arthritis Past Surgical History: Reports: Hx Abdominal Surgery - barium study 10/18/11, Hx Breast Surgery - Left mastectomy, Hx Cardiac Surgery - carotid artery cleaned , Hx Carotid Endarterectomy - left- in approximately 2012, Hx Tubal Ligation - Immunizations Hx Diphtheria, Pertussis, Tetanus Vaccination: Yes Hx Pneumococcal Vaccination: 05/16/15 <MARK ACKERMAN - Last Filed: 04/21/18 10:25> Review of Systems - Review of Systems Constitutional: No symptoms reported EENT: No symptoms reported Cardiovascular: No symptoms reported Respiratory: No symptoms reported Gastrointestinal: No symptoms reported Genitourinary: No symptoms reported Female Genitourinary: No symptoms reported Musculoskeletal: No symptoms reported Skin: No symptoms reported Hematologic/Lymphatic: No symptoms reported Neurological/Psychological: See HPI, Weakness -: Yes All other systems reviewed and negative <MARK ACKERMAN - Last Filed: 04/21/18 10:25> Physical Exam <MARK ACKERMAN - Last Filed: 04/21/18 10:25> <ROWENA FISH - Last Filed: 04/21/18 18:55> <JAQUI NAGEL - Last Filed: 04/21/18 22:10> - Vital signs Vitals: Pulse Ox 95 04/21/18 09:21 - Notes Notes: GENERAL: Alert, interacts well. No acute distress. HEAD: Normocephalic, atraumatic. EYES: Pupils equal, round, and reactive to light. Extraocular movements intact. ENT: Oral mucosa moist, tongue midline. NECK: Full range of motion. Supple. Trachea midline. LUNGS: Wheezes and rhonchi. No respiratory distress. HEART: Regular rate and rhythm. Loud murmur auscultated which radiated into chest and bilateral carotids. ABDOMEN: Soft, non-tender. Non-distended. Bowel sounds present in all 4 quadrants. EXTREMITIES: Moves all 4 extremities spontaneously. No edema, radial and dorsalis pedis pulses 2/4 bilaterally. No cyanosis. NEUROLOGICAL: Alert and oriented x3. Clear speech. Normal motor strength bilaterally. 5/5 hospitality ambassador strength. Negative straight leg raise. PSYCH: Normal affect, normal mood. SKIN: Warm, dry, normal turgor. No rashes or lesions noted. (MARK ACKERMAN) Course - Laboratory Result Diagrams: 04/21/18 09:33 12 09:33 <MEKAMARK - Last Filed: 04/21/18 10:25> - Laboratory Result Diagrams: 04/21/18 09:33 04/21/18 09:33 - Diagnostic Test Radiology reviewed: Image reviewed, Reports reviewed - Chest x-ray shows the known right upper lobe mass without acute changes. CT scan of the head shows chronic small vessel disease, with very heavily calcified tangirnaq of Phan arterial vessels. MRA shows bilateral internal carotid arteries are nonvisualized to the carotid termini and may be occluded or severely stenotic proximally. There does appear to be collateralized flow. See radiology report. The carotid Dopplers showed the known right internal carotid occlusion, and a severely restricted flow on the left side with a velocity of 15 cm/s. - EKG Interpretation by Ut EKG shows normal: Sinus rhythm, [place], Intervals, QRS Complexes, ST-T Waves Rate: Normal - 77 Rhythm: NSR Voltage: Consistant with LVH - Consults Dr. Hussein Time consulted: 18:48 Consulted provider: other - Agrees that the patient should be seen in consultation. Requests that I call the hospitalist service to admit the patient , and requested the patient be started on heparin. - Transfer of Care Care transferred to following provider: Dr. Tierney <ROWENA FISH - Last Filed: 04/21/18 18:55> - Laboratory Result Diagrams: 04/21/18 09:33 04/21/18 09:33 <JAQUI NAGEL - Last Filed: 04/21/18 22:10> - Re-evaluation Re-evalutation: 04/21/18 16:01 The patient was discussed with Dr. Gardner, the vascular surgeon in [place]. His associate Dr. Lnua, did the patient's left carotid endarterectomy in 2010. She did have a carotid Doppler done in August 2016 showing a widely patent left carotid artery and a chronically occluded right carotid artery. An MRI MRA today shows bilateral internal carotid arteries are nonvisualized to the carotid termini and may be occluded or severely stenotic proximally. They do appear to have collateralized flow. Dr. Gardner recommended repeating the carotid Doppler to see if she has a surgically correctable problem contributing to her TIA symptoms. This was discussed with her primary care provider Dr. Whitney, and he concurs and requests the carotid Doppler be done to decide on the patient's management. (ROWENA FISH) 04/21/18 19:09 Patient has been accepted to [facility] under care of , vascular surgery, I did confirm this with Saadia Arguelles the nursing fuel system maintenance supervisor, patient was briefly discussed with the hospitalist who deferred to the vascular surgeon for admission (JAQUI NAGEL) - Vital Signs Vital signs: Temp Pulse Resp BP Pulse Ox 98.4 F 77 19 156/68 H 100 04/21/18 09:26 04/21/18 21:00 04/21/18 21:00 04/21/18 21:00 04/21/18 21:00 - Laboratory Laboratory results interpreted by me: 04/21/18 04/21/18 04/21/18 09:33 09:33 10:50 RDW 14.3 H BUN 25 H Est GFR ( Amer) 56 L Est GFR (Non-Af Amer) 46 L Glucose 113 H Urine Ascorbic Acid 20 H - Transfer of Care Notes: 04/21/18 18:33 Waiting for callback from the hospitalist service at [facility] to have the patient admitted. (ROWENA FISH) Critical Care Note - Critical Care Note Total time excluding time spent on procedures (mins): 50 <ROWENA FISH - Last Filed: 04/21/18 18:55> Discharge <MARK ACKERMAN - Last Filed: 04/21/18 10:25> <ROWENA FISH - Last Filed: 04/21/18 18:55> <JAQUI NAGEL - Last Filed: 04/21/18 22:10> - Discharge Clinical Impression: TIA (transient ischemic attack), More than 50 percent stenosis of left internal carotid artery Condition: Stable Disposition: [facility] Referrals: CHUY WHITNEY MD [Primary Care Provider] - Follow up as needed Scribe Attestation: 04/21/18 09:50 I personally performed the services described in the documentation, reviewed and edited the documentation which was dictated to the scribe in my presence, and it accurately records my words and actions. (ROWENA FISH) Scribe Documentation - Scribe Written by Scribe:: Carri Murphy, 04/21/2018 09:59 acting as scribe for :: Isauro <MARK ACKERMAN - Last Filed: 04/21/18 10:25>
[2018-04-21 09:46] LABS: ABSOLUTE EOSINOPHILS # (AUTO) 0.1 10^3/uL (0.0-0.6); ABSOLUTE LYMPHOCYTES (AUTO) 1.7 10^3/uL (0.5-4.7); ABSOLUTE MONOCYTES (AUTO) 0.8 10^3/uL (0.1-1.4); ABSOLUTE NEUT (AUTO) 7.7 10^3/uL (1.7-8.2); BASOPHILS % (AUTO) 0.2 % (0-2); EOSINOPHILS % (AUTO) 1.3 % (0-6); HEMOGLOBIN 13.1 g/dL (12.0-15.5); LYMPHOCYTES % (AUTO) 16.4 % (13-45); MEAN CORPUSCULAR HEMOGLOBIN 30.5 pg (27.0-33.4); MEAN CORPUSCULAR HGB CONC 34.4 g/dL (32.0-36.0); MEAN CORPUSCULAR VOLUME 89 fl (80-97); MONOCYTES % (AUTO) 7.3 % (3-13); PLATELET COUNT 425 10^3/uL (150-450); RED BLOOD COUNT 4.28 10^6/uL (3.72-5.28); RED CELL DISTRIBUTION WIDTH 14.3 % (11.5-14.0); SEGMENTED NEUTROPHILS % (AUTO) 74.8 % (42-78); TOTAL CELLS COUNTED % (AUTO) 100 %; WHITE BLOOD COUNT 10.3 10^3/uL (4.0-10.5)
[2018-04-21 10:13] LABS: ALANINE AMINOTRANSFERASE 15 U/L (9-52); ALKALINE PHOSPHATASE 80 U/L (38-126); ANION GAP 13 (5-19); ASPARTATE AMINO TRANSFERASE 15 U/L (14-36); BILIRUBIN,DIRECT 0.2 mg/dL (0.0-0.4); BILIRUBIN,TOTAL 0.7 mg/dL (0.2-1.3); BLOOD UREA NITROGEN 25 mg/dL (7-20); CALCIUM 8.9 mg/dL (8.4-10.2); CARBON DIOXIDE 22 mmol/L (22-30); CHLORIDE 107 mmol/L (98-107); CREATINE KINASE 41 U/L (30-135); GLUCOSE 113 mg/dL (75-110); POTASSIUM 4.5 mmol/L (3.6-5.0); SODIUM 142.2 mmol/L (137-145); TOTAL PROTEIN 7.7 g/dL (6.3-8.2)
[2018-04-21 10:24] LABS: CREATINE KINASE MB 0.57 ng/mL (<4.55)
[2018-04-21 10:27] LABS: TROPONIN I < 0.012 ng/mL
[2018-04-21 11:05] LABS: APPEARANCE,URINE CLEAR; BILIRUBIN,URINE NEGATIVE (NEGATIVE); COLOR,URINE YELLOW; GLUCOSE, URINE NEGATIVE (NEGATIVE); KETONES,URINE NEGATIVE (NEGATIVE); LEUKOCYTE ESTERASE,URINE NEGATIVE (NEGATIVE); NITRITE,URINE NEGATIVE (NEGATIVE); PROTEIN,URINE NEGATIVE (NEGATIVE); URINE SPECIFIC GRAVITY 1.011; UROBILINOGEN,URINE NEGATIVE mg/dL (<2.0)
[2018-04-21] MEDS ORDERED: LORAZEPAM INJ 2 MG/1 ML VIAL IV ONE (13:33)
--- NOTE | 2018-04-21 14:42 | RADIOLOGY REPORT (SQ) ---
EXAM DESCRIPTION: MRI HEAD WITHOUT; MRA HEAD WITHOUT COMPLETED DATE/TIME: 04/21/2018 2:23 pm REASON FOR STUDY: TIA, heavily calcified hopi of Phan COMPARISON: CT brain, 04/21/2018 TECHNIQUE: Multiplanar imaging includes non-contrasted T1, T2, FLAIR, diffusion with ADC map. Images stored on PACS. MRA [place] OF PHAN: TECHNIQUE: Axial 3-D [id number] acquisition imaging performed through the brain in the area of th e hopi of Phan. Images reformatted using 3-D MIPS. CONTRAST TYPE AND DOSE: None. RENAL FUNCTION: Not applicable. LIMITATIONS: None. FINDINGS: ANATOMY: No anomalies. Pituitary fossa normal. CSF SPACES: Normal in size and contour. No hemorrhage. CEREBRUM: Sulci and gyri normal in size and contour. Scattered periventricular T2/FLAIR hyperintensi ty. No evidence of hemorrhage, mass, or extraaxial fluid collection. No abnormal enhancement post co ntrast. POSTERIOR FOSSA: No signal alteration. No hemorrhage. No edema, masses, or mass effect. Internal elder tory canals, cerebello-pontine angles, mastoids normal. No enhancing lesions. No abnormal enhancement post contrast. DIFFUSION IMAGING: Negative for acute or sub-acute infarction. ORBITS: No masses. Globes normal. PARANASAL SINUSES: No fluid levels. Mucosa normal. OTHER: No other significant finding. MRA [place] OF PHAN: SOURCE IMAGES: No unexpected findings on source images. No large masses. 3-D MIP: No aneurysm. The bilateral internal carotid arteries are nonvisualized to the carotid termi ni ; there is flow within the bilateral middle cerebral and anterior cerebral arteries which may be c ollateralized via the posterior communicating arteries. There is robust flow in the included bilater al distal vertebral arteries, basilar artery, basilar branch vessels, and posterior communicating art eries. There is irregular atherosclerosis of the vertebral arteries and basilar artery. OTHER: No other significant finding. IMPRESSION: 1. No acute intracranial pathology. No evidence of acute diffusion restricting infarcti on. Small vessel white matter disease. 2. Abnormal MR angiogram; the bilateral internal carotid arteries are nonvisualized to the carotid t ermini and may be occluded or severely stenotic proximally. Flow is visualized within the bilateral middle cerebral and anterior cerebral arteries, which may be collateralized via the posterior communi cating arteries and ultimately supplied by the vertebrobasilar system. There is robust flow in the i ncluded bilateral distal vertebral arteries, basilar artery, basilar branch vessels, and posterior co mmunicating arteries as well as the included extracranial external carotid branch vessels. Irregular atherosclerosis of the vertebral arteries and basilar artery without evidence of high-grade stenosis . EVIDENCE OF ACUTE STROKE: NO. TECHNICAL DOCUMENTATION: JOB ID: [id number] [employer]- All Rights Reserved Reading location - IP/workstation name: [email or web address]
--- NOTE | 2018-04-21 14:42 | RADIOLOGY REPORT (SQ) ---
EXAM DESCRIPTION: MRI HEAD WITHOUT; MRA HEAD WITHOUT COMPLETED DATE/TIME: 04/21/2018 2:23 pm REASON FOR STUDY: TIA, heavily calcified [place] of [place] COMPARISON: CT brain, 04/21/2018 TECHNIQUE: Multiplanar imaging includes non-contrasted T1, T2, FLAIR, diffusion with ADC map. Images stored on PACS. MRA [place]: TECHNIQUE: Axial 3-D [id number] acquisition imaging performed through the brain in the area of th e pok[place] of [place]. Images reformatted using 3-D MIPS. CONTRAST TYPE AND DOSE: None. RENAL FUNCTION: Not applicable. LIMITATIONS: None. FINDINGS: ANATOMY: No anomalies. Pituitary fossa normal. CSF SPACES: Normal in size and contour. No hemorrhage. CEREBRUM: Sulci and gyri normal in size and contour. Scattered periventricular T2/FLAIR hyperintensi ty. No evidence of hemorrhage, mass, or extraaxial fluid collection. No abnormal enhancement post co ntrast. POSTERIOR FOSSA: No signal alteration. No hemorrhage. No edema, masses, or mass effect. Internal elder tory canals, cerebello-pontine angles, mastoids normal. No enhancing lesions. No abnormal enhancement post contrast. DIFFUSION IMAGING: Negative for acute or sub-acute infarction. ORBITS: No masses. Globes normal. PARANASAL SINUSES: No fluid levels. Mucosa normal. OTHER: No other significant finding. MRA [place]: SOURCE IMAGES: No unexpected findings on source images. No large masses. 3-D MIP: No aneurysm. The bilateral internal carotid arteries are nonvisualized to the carotid termi ni ; there is flow within the bilateral middle cerebral and anterior cerebral arteries which may be c ollateralized via the posterior communicating arteries. There is robust flow in the included bilater al distal vertebral arteries, basilar artery, basilar branch vessels, and posterior communicating art eries. There is irregular atherosclerosis of the vertebral arteries and basilar artery. OTHER: No other significant finding. IMPRESSION: 1. No acute intracranial pathology. No evidence of acute diffusion restricting infarcti on. Small vessel white matter disease. 2. Abnormal MR angiogram; the bilateral internal carotid arteries are nonvisualized to the carotid t ermini and may be occluded or severely stenotic proximally. Flow is visualized within the bilateral middle cerebral and anterior cerebral arteries, which may be collateralized via the posterior communi cating arteries and ultimately supplied by the vertebrobasilar system. There is robust flow in the i ncluded bilateral distal vertebral arteries, basilar artery, basilar branch vessels, and posterior co mmunicating arteries as well as the included extracranial external carotid branch vessels. Irregular atherosclerosis of the vertebral arteries and basilar artery without evidence of high-grade stenosis . EVIDENCE OF ACUTE STROKE: NO. TECHNICAL DOCUMENTATION: JOB ID: [id number] [employer]- All Rights Reserved Reading location - IP/workstation name: [email or web address]
--- NOTE | 2018-04-21 17:51 | RADIOLOGY REPORT (SQ) ---
EXAM DESCRIPTION: CAROTID DOPPLER COMPLETED DATE/TIME: 04/21/2018 5:34 pm REASON FOR STUDY: TIA, MRA suggests bilat occlusion COMPARISON: None. TECHNIQUE: Grayscale ultrasound, Doppler velocity and spectra, and color Doppler images acquired of the extra-cranial carotid and vertebral arteries. Images stored on PACS. LIMITATIONS: None. FINDINGS: RIGHT CAROTID CCA Velocities: 64 centimeters/second ICA Velocities Peak systolic occluded cm/s. End diastolic occluded cm/s. Proximal ICA/CCA peak systolic ratio not applicable. The right internal carotid artery is occluded. LEFT CAROTID CCA Velocities: 71 centimeters/second ICA Velocities Peak systolic 72 cm/s. End diastolic 10 cm/s. Proximal ICA/CCA peak systolic ratio 1.03. There is significantly reduced flow in the proximal and mid internal carotid. VERTEBRAL ARTERIES: Antegrade flow. Normal waveforms. SUBCLAVIAN ARTERIES: No finding. OTHER: No other significant finding. IMPRESSION: The right ICA is occluded. There is significantly reduced flow in the proximal and mid left ICA. Concerning for high-grade stenosis. COMMENT: Quality ID #[id number]: Velocity criteria are extrapolated from the diameter data as defined by t he Society of Radiologists in Ultrasound Consensus Conference. Radiology 2003: 229; 340-346. TECHNICAL DOCUMENTATION: JOB ID: [id number] [employer]- All Rights Reserved Reading location - IP/workstation name: [email or web address]
[2018-04-21] MEDS ORDERED: HEPARIN SODIUM,PORCINE/D5W 25,000 UNIT/250 ML RTUINJ IV PRN (18:57)
[2018-04-21] MEDS ORDERED: HEPARIN SOD (PORCINE) 1,000 UNIT/ML 10 ML VIAL IV ONE (18:57)
[2018-04-21 20:00] LABS: INTERNATIONAL RATION (INR) 1.04; PROTHROMBIN TIME 14.1 SEC (11.4-15.4)
[2018-04-21 20:01] LABS: PARTIAL THROMBOPLASTIN TIME 32.9 SEC (23.5-35.8)
[2018-04-21] MEDS ORDERED: ACETAMINOPHEN 325 MG TABLET PO ONE (20:28)
[2018-04-21] MEDS ORDERED: HEPARIN SOD (PORCINE) 1,000 UNIT/ML 10 ML VIAL IV PRN (21:58)
--- NOTE | 2018-04-21 22:09 | ER Document Report ---
Doctor's Note Notes: 04/21/18 22:09 Patient resting comfortably, transport crew in the department to transport patient to [facility] for further evaluation and treatment by vascular surgery, besides needing to use the restroom prior to transport she has no complaints, vital signs are stable, patient stable for transport
[2018-04-21 22:16] VITALS: BP 166/69
--- NOTE | 2018-04-23 10:55 | EKG REPORT ---
SEVERITY:- ABNORMAL ECG - SINUS RHYTHM PROBABLE LEFT VENTRICULAR HYPERTROPHY : Confirmed by: Brad Arnold 23-Apr-2018 10:53:07
== END 2018-04-21 22:26 | disposition short-term general hospital (02) ==
LOC: ER 09:06
DX: G45.9 Transient cerebral ischemic attack, unspecified (principal); I65.22 Occlusion and stenosis of left carotid artery; I11.0 Hypertensive heart disease with heart failure; I50.32 Chronic diastolic (congestive) heart failure; R53.1 Weakness; R47.81 Slurred speech; I25.2 Old myocardial infarction; E78.00 Pure hypercholesterolemia, unspecified; J44.9 Chronic obstructive pulmonary disease, unspecified; E78.5 Hyperlipidemia, unspecified; F17.210 Nicotine dependence, cigarettes, uncomplicated; M19.90 Unspecified osteoarthritis, unspecified site; Z85.3 Personal history of malignant neoplasm of breast; Z79.82 Long term (current) use of aspirin; Z86.79 Personal history of other diseases of the circulatory system; C34.90 Malignant neoplasm of unspecified part of unspecified bronchus or lung
CPT/HCPCS: 93005; 99291; 96375; 96365; 96366; 36415; 82553; 82550; 83735; 85025; 85610; 85730; 80053; 81001; 84484; 93880; 70551; 70544; 71045; 70450; 93010; A9270; J1644 ×2; J2060

== ENCOUNTER → 2018-05-01 | Outpatient (CLI) | payer BC, MEDICARE ==
[2018-05-01 11:58] LABS: ANION GAP 11 (5-19); BLOOD UREA NITROGEN 34 mg/dL (7-20); CALCIUM 9.2 mg/dL (8.4-10.2); CARBON DIOXIDE 26 mmol/L (22-30); CHLORIDE 106 mmol/L (98-107); GLUCOSE 124 mg/dL (75-110); POTASSIUM 4.5 mmol/L (3.6-5.0); SODIUM 142.6 mmol/L (137-145)
== END ==
LOC: OD 10:32
PROVIDERS: ATTEND Physician Assistant
DX: E87.5 Hyperkalemia (principal)
CPT/HCPCS: 36415; 80048

== ENCOUNTER 2018-05-12 09:58 | Emergency (ER) | payer BC, MEDICARE ==
--- NOTE | 2018-05-12 10:17 | RADIOLOGY REPORT (SQ) ---
EXAM DESCRIPTION: CT HEAD WITHOUT COMPLETED DATE/TIME: 05/12/2018 10:08 am REASON FOR STUDY: stroke symptoms COMPARISON: None. TECHNIQUE: Axial images acquired through the brain without intravenous contrast. Images reviewed wi th bone, brain and subdural windows. Additional sagittal and coronal reconstructions were generated. Images stored on PACS. All CT scanners at this facility use dose modulation, iterative reconstruction, and/or weight based d osing when appropriate to reduce radiation dose to as low as reasonably achievable (ALARA). [facility]: Dose Right [facility]: CareDose [facility]: Dose Right [facility]: Teradose 4D [facility]: [facility] RADIATION DOSE: CT Rad equipment meets quality standard of care and radiation dose reduction techniq ues were employed. CTDIvol: 53.2 mGy. DLP: 991 mGy-cm. mGy. LIMITATIONS: None. FINDINGS: VENTRICLES: Prominent. CEREBRUM: No masses. No hemorrhage. No midline shift. Areas of low density in the white matter mos t likely due to chronic micro-vascular ischemic change. No evidence for acute infarction. CEREBELLUM: No masses. No hemorrhage. No alteration of density. No evidence for acute infarction. EXTRAAXIAL SPACES: Mild age-related involutional change. No fluid collections. No masses. ORBITS AND GLOBE: No intra- or extraconal masses. Normal contour of globe without masses. CALVARIUM: No fracture. PARANASAL SINUSES: No fluid or mucosal thickening. SOFT TISSUES: No mass or hematoma. OTHER: No other significant finding. IMPRESSION: MILD CHRONIC CHANGES OF ATROPHY AND MICROVASCULAR ISCHEMIA. NO ACUTE PROCESS. EVIDENCE OF ACUTE STROKE: NO. COMMENT: Pertinent positive or negative findings of the imaging study reported as a CRITICAL EXAM italo CHEN DO at10:10 on 05/12/2018. Category of Critical Exam: Stroke alert. TECHNICAL DOCUMENTATION: JOB ID: [id number] Quality ID # [id number]: Final reports with documentation of one or more dose reduction techniques (e.g., Au tomated exposure control, adjustment of the mA and/or kV according to patient size, use of iterative reconstruction technique) 2010 [employer]- All Rights Reserved Reading location - IP/workstation name: [email or web address]
[2018-05-12] MEDS ORDERED: ASPIRIN 81 MG TABLET, CHEWABLE PO ONE (10:20)
--- NOTE | 2018-05-12 10:24 | RADIOLOGY REPORT (SQ) ---
EXAM DESCRIPTION: CHEST SINGLE VIEW COMPLETED DATE/TIME: 05/12/2018 10:09 am REASON FOR STUDY: stroke symptoms COMPARISON: 04/21/2018 EXAM PARAMETERS: NUMBER OF VIEWS: One view. TECHNIQUE: Single frontal radiographic view of the chest acquired. RADIATION DOSE: NA LIMITATIONS: None. FINDINGS: LUNGS AND PLEURA: Right apical mass appears larger compared to the prior. Known hypermeta bolic carcinoma. Left lung is clear. MEDIASTINUM AND HILAR STRUCTURES: No masses. Contour normal. HEART AND VASCULAR STRUCTURES: Heart normal in size. Normal vasculature. BONES: No acute findings. HARDWARE: Right-sided port tip overlying SVC. OTHER: No other significant finding. IMPRESSION: Enlarging right apical mass. No evidence of superimposed pneumonia. TECHNICAL DOCUMENTATION: JOB ID: [id number] [employer]- All Rights Reserved Reading location - IP/workstation name: [email or web address]
[2018-05-12 10:46] LABS: ABSOLUTE BASOPHILS # (AUTO) 0.1 10^3/uL (0.0-0.2); ABSOLUTE EOSINOPHILS # (AUTO) 0.1 10^3/uL (0.0-0.6); ABSOLUTE LYMPHOCYTES (AUTO) 1.4 10^3/uL (0.5-4.7); ABSOLUTE MONOCYTES (AUTO) 0.6 10^3/uL (0.1-1.4); ABSOLUTE NEUT (AUTO) 9.5 10^3/uL (1.7-8.2); BASOPHILS % (AUTO) 0.5 % (0-2); EOSINOPHILS % (AUTO) 0.8 % (0-6); HEMATOCRIT 35.9 % (36.0-47.0); HEMOGLOBIN 12.3 g/dL (12.0-15.5); LYMPHOCYTES % (AUTO) 12.1 % (13-45); MEAN CORPUSCULAR HEMOGLOBIN 30.2 pg (27.0-33.4); MEAN CORPUSCULAR HGB CONC 34.2 g/dL (32.0-36.0); MEAN CORPUSCULAR VOLUME 88 fl (80-97); MONOCYTES % (AUTO) 5.5 % (3-13); PLATELET COUNT 421 10^3/uL (150-450); RED BLOOD COUNT 4.06 10^6/uL (3.72-5.28); RED CELL DISTRIBUTION WIDTH 14.4 % (11.5-14.0); SEGMENTED NEUTROPHILS % (AUTO) 81.1 % (42-78); TOTAL CELLS COUNTED % (AUTO) 100 %; WHITE BLOOD COUNT 11.7 10^3/uL (4.0-10.5)
[2018-05-12 10:48] LABS: INTERNATIONAL RATION (INR) 1.02; PROTHROMBIN TIME 13.9 SEC (11.4-15.4)
[2018-05-12 11:11] LABS: CREATINE KINASE MB 0.39 ng/mL (<4.55)
[2018-05-12 11:13] LABS: TROPONIN I < 0.012 ng/mL
--- NOTE | 2018-05-12 11:23 | RADIOLOGY REPORT (SQ) ---
EXAM DESCRIPTION: L SPINE WHOLE COMPLETED DATE/TIME: 05/12/2018 11:08 am REASON FOR STUDY: right leg weeakness COMPARISON: None. NUMBER OF VIEWS: Five views including obliques. TECHNIQUE: AP, lateral, oblique, and sacral radiographic images acquired of the lumbar spine. LIMITATIONS: None. FINDINGS: MINERALIZATION: Normal. SEGMENTATION: Normal. No transitional anatomy. ALIGNMENT: Mild convex right scoliosis. VERTEBRAE: Maintained height. No fracture or worrisome bone lesion. DISCS: Multilevel disc space narrowing with osteophytes. POSTERIOR ELEMENTS: Pedicles and facets are intact. No pars defect or posterior arch defects. Facet arthropathy is present. HARDWARE: None in the spine. PARASPINAL SOFT TISSUES: Normal. PELVIS: Intact as visualized. No fractures or worrisome bone lesions. SI joints intact. OTHER: No other significant finding. IMPRESSION: SPONDYLOSIS WITHOUT BONE LESION OR FRACTURE. TECHNICAL DOCUMENTATION: JOB ID: [id number] [employer]- All Rights Reserved Reading location - IP/workstation name: [email or web address]
[2018-05-12 11:49] LABS: ALANINE AMINOTRANSFERASE 20 U/L (9-52); ALBUMIN 3.8 g/dL (3.5-5.0); ALKALINE PHOSPHATASE 82 U/L (38-126); ANION GAP 10 (5-19); ASPARTATE AMINO TRANSFERASE 24 U/L (14-36); BILIRUBIN,DIRECT 0.5 mg/dL (0.0-0.4); BILIRUBIN,TOTAL 0.7 mg/dL (0.2-1.3); BLOOD UREA NITROGEN 29 mg/dL (7-20); CALCIUM 8.8 mg/dL (8.4-10.2); CARBON DIOXIDE 21 mmol/L (22-30); CHLORIDE 108 mmol/L (98-107); CREATINE KINASE 44 U/L (30-135); GLUCOSE 100 mg/dL (75-110); POTASSIUM 5.1 mmol/L (3.6-5.0); SODIUM 138.6 mmol/L (137-145); TOTAL PROTEIN 7.2 g/dL (6.3-8.2)
[2018-05-12] MEDS ORDERED: NORMAL SALINE 1000 ML 1,000 ML IV ONE (12:03)
[2018-05-12 12:33] LABS: APPEARANCE,URINE SLIGHTLY-CLOUDY; BILIRUBIN,URINE NEGATIVE (NEGATIVE); COLOR,URINE YELLOW; GLUCOSE, URINE NEGATIVE (NEGATIVE); KETONES,URINE NEGATIVE (NEGATIVE); LEUKOCYTE ESTERASE,URINE NEGATIVE (NEGATIVE); NITRITE,URINE NEGATIVE (NEGATIVE); PROTEIN,URINE NEGATIVE (NEGATIVE); URINE SPECIFIC GRAVITY 1.005; UROBILINOGEN,URINE NEGATIVE mg/dL (<2.0)
--- NOTE | 2018-05-12 13:17 | ER Document Report ---
ED General - General Chief Complaint: S/S of Possible Stroke Stated Complaint: WEAKNESS Time Seen by Provider: 05/12/18 10:08 TRAVEL OUTSIDE OF THE [place] IN LAST 30 DAYS: No - HPI Patient complains to provider of: Right leg weakness speech changes Notes: Patient coming in for evaluation of the above-stated symptoms right leg weakness and speech changes. Patient was recently seen for TIA-like symptoms had a carotid Dopplers performed showing occlusion of the right carotid artery and high-grade stenosis of the left. Patient was transferred to [facility] where the patient was evaluated by a vascular surgeon at that time decision was made the patient due to her lung cancer and other comorbidities was very high risk to have the carotids cleaned out therefore medical management was decided as the best therapy for the patient. Patient states she has been compliant with her aspirin and Plavix therapy patient is on 81 mg of aspirin and 75 mg of Plavix. Patient denies missing any doses. Patient states symptoms today started between 7 and 8:00 patient states she woke up in was able to get out of bed because of weakness in her right leg. Patient was found by her had some speech changes patient also states recently had a port placed and while she was at [facility] and did receive her first dose of chemotherapy day prior to arrival through the port. Patient otherwise denies any fevers chills nausea vomiting diarrhea. Patient states that there is been improvement of her symptoms patient is sitting on the side of the bed and is able to move all 4 extremities to position herself lying in bed or getting into the stretcher for my evaluation. - Related Data Allergies/Adverse Reactions: cilostazol [From Pletal] Adverse Reaction (Intermediate, Verified 05/12/18 10:02) Dizziness Past Medical History - Social History Smoking Status: Unknown if Ever Smoked Family History: Other Patient has suicidal ideation: No Patient has homicidal ideation: No - Past Medical History Cardiac Medical History: Reports: Hx Heart Attack, Hx Hypercholesterolemia, Hx Hypertension Denies: Hx Coronary Artery Disease Pulmonary Medical History: Reports: Hx COPD, Hx Pneumonia - A BABY Denies: Hx Asthma, Hx Bronchitis Neurological Medical History: Denies: Hx Cerebrovascular Accident, Hx Seizures Renal/ Medical History: Denies: Hx Peritoneal Dialysis Musculoskeletal Medical History: Reports Hx Arthritis Past Surgical History: Reports: Hx Abdominal Surgery - barium study 10/18/11, Hx Breast Surgery - Left mastectomy, Hx Cardiac Surgery - carotid artery cleaned, Hx Carotid Endarterectomy - left- in approximately 2012, Hx Tubal Ligation - Immunizations Hx Diphtheria, Pertussis, Tetanus Vaccination: Yes Hx Pneumococcal Vaccination: 05/16/15 Review of Systems - Review of Systems Constitutional: No symptoms reported EENT: No symptoms reported Cardiovascular: No symptoms reported Respiratory: No symptoms reported Gastrointestinal: No symptoms reported Genitourinary: No symptoms reported Female Genitourinary: No symptoms reported Musculoskeletal: Other - Right leg weakness Skin: No symptoms reported Hematologic/Lymphatic: No symptoms reported Neurological/Psychological: Other - Speech changes -: Yes All other systems reviewed and negative Physical Exam - Vital signs Vitals: Resp Pulse Ox 13 94 05/12/18 10:15 05/12/18 10:15 Interpretation: Normal - General General appearance: Appears well, Alert - HEENT Head: Normocephalic, Atraumatic Eyes: Normal Pupils: PERRL - Respiratory Respiratory status: No respiratory distress Chest status: Nontender Breath sounds: Normal Chest palpation: Normal - Cardiovascular Rhythm: Regular Heart sounds: Normal auscultation Murmur: No Notes: Port to the right upper chest - Abdominal Inspection: Normal Distension: No distension Bowel sounds: Normal Tenderness: Nontender Organomegaly: No organomegaly - Back Back: Normal, Nontender - Extremities General upper extremity: Normal inspection, Nontender, Normal color, Normal ROM, Normal temperature General lower extremity: Normal inspection, Nontender, Normal color, Normal ROM, Normal temperature, Normal weight bearing. No: Elva's sign - Neurological Neuro grossly intact: Yes Cognition: Normal Orientation: AAOx4 [place] Coma Scale Eye Opening: Spontaneous [place] Coma Scale Verbal: Oriented [place] Coma Scale Motor: Obeys Commands [place] Coma Scale Total: 15 Speech: Normal Motor strength normal: LUE, RUE, LLE, RLE Sensory: Normal Notes: Please see NIH score - Psychological Associated symptoms: Normal affect, Normal mood - Skin Skin Temperature: Warm Skin Moisture: Dry Skin Color: Normal Course - Re-evaluation Re-evalutation: 05/12/18 15:10 Laboratory studies showed slight dehydration patient was given IV fluids here. No signs of infectious etiology CT of the head was noraml chest x-ray showed ma ss no pna I discussed the patient's case with Dr. Roberts the patient's PCP states aware of the patient's previous visits and determination by the vascular surgeon at the perform any surgery on the patient's carotid arteries and suggested that the patient increase her aspirin dose to 325 mg daily and to follow-up with his office on the next Tuesday. I explained this to the patient patient remained a stigmatic during her visit here. Patient agrees to follow-up and will be discharged home. 05/12/18 15:11 - Vital Signs Vital signs: Temp Pulse Resp BP Pulse Ox 98.1 F 76 19 132/65 H 97 05/12/18 13:29 05/12/18 10:40 05/12/18 13:01 05/12/18 13:00 05/12/18 13:01 - Laboratory Result Diagrams: 05/12/18 10:32 05/12/18 11:25 Laboratory results interpreted by me: 05/12/18 05/12/18 05/12/18 10:32 11:25 12:08 WBC 11.7 H Hct 35.9 L RDW 14.4 H Seg Neutrophils % 81.1 H Lymphocytes % 12.1 L Absolute Neutrophils 9.5 H Potassium 5.1 H Chloride 108 H Carbon Dioxide 21 L BUN 29 H Est GFR ( Amer) 51 L Est GFR (Non-Af Amer) 42 L Direct Bilirubin 0.5 H Urine Blood SMALL H Discharge - Discharge Clinical Impression: Right leg weakness, 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 I discussed your case with your primary care physician Dr. Roberts at this time he recommends that we continue only to medically manage you increase your aspirin dose to 325 a day and to follow-up in his office on Tuesday. Return to the ER for any other concerning issues Prescriptions: Aspirin [Aspirin 325 mg Tablet] 325 mg PO DAILY #30 tablet Referrals: CHUY ROBERTS MD [Primary Care Provider] - 05/15/18 ED NIH Stroke Scale - NIH Stroke Scale *: 1. NIH scale should be completed with appropriate accompanying assessment tools. *: 2. The NIH should reflect what the patient is capable of doing and should not be coached by the clinician. 1a. Level of Consciousness: 0=Alert;keenly responsive -: 1=Drowsy -: 2=Obtunded -: 3=Coma/unresponsive or reflex to noxious stimuli. 1a. Responses: 0 1b. Orientation Questions: a. What month is it? -: b. How old are you? -: 0=Answers both questions correctly. -: 1=Answers one question correctly or patient is intubated or has orotracheal trauma. -: 2=Answers neither question correctly. 1b. Responses: 0 1c. Response to commands: a. Open and close eyes? -: b. Harmonic Analyst and release hand? -: Credit is given despite weakness. Demonstration of task is permitted. Substitute command if hands cannot be used. -: 0=Performs both tasks correctly -: 1=Performs one task correctly -: 2=Performs neither task correctly 1c. Responses: 0 2. Gaze: Establish eye contact and instruct patient to "Follow my finger" -: 0=Normal -: 1=Partial gaze palsy. Gaze is abnormal in one or both eyes, but where forced deviation or total gaze paresis is not present. -: 2=Forced deviation or total gaze paresis. 2. Responses: 0 3. Visual Elliott: Sees fingers in all four quadrants. -: 0=No visual loss. -: 1=Partial hemianopsia. -: 2=Complete hemianopsia. -: 3=Bilateral hemianopsia (including Cortical blindness) 3. Responses: 0 4. Facial Movement: Instruct patient to: -: a. Show me your teeth -: b. Raise your eyebrows -: c. Close your eyes -: d. Smile -: 0=Normal symmetrical movement -: 1=Minor paralysis (flattened nasolabial fold, asymmetry on smiling). -: 2=Partial paralysis (total or near total paralysis of lower face). -: 3=Complete paralysis of upper and lower face 4. Responses: 0 5. Motor functions (left arm): Alternate sides and extend each arm with palms down (90 degrees if sitting or 45 degrees for supine). -: 0=No drift;limb holds for full 10 seconds. -: 1=Drift; limb holds but drifts down before full 10 seconds, but does not hit bed. -: 2=Some effort against gravity; limb cannot get to or maintain position. -: 3=No effort against gravity; limb falls. -: 4=No movement. -: UN=Amputation, joint fusion, explain in comments. 5. Responses (left arm): 0 5. Motor Functions (right arm): Alternate sides and extend each arm with palms d own (90 degrees if sitting or 45 degrees for supine). -: 0=No drift;limb holds for full 10 seconds. -: 1=Drift; limb holds but drifts down before full 10 seconds, but does not hit bed. -: 2=Some effort against gravity; limb cannot get to or maintain position. -: 3=No effort against gravity; limb falls. -: 4=No movement. -: UN=Amputation, joint fusion, explain in comments. 5. Responses (right arm): 0 6. Motor Functions (left leg): With patient lying supine, alternate sides and extend each leg (30 degrees always while supine). -: 0=No drift, leg holds position for full 5 seconds -: 1=Drift; leg falls before full 5 seconds but does not hit bed. -: 2=Some effort against gravity, leg falls to bed but some effort against gravity. -: 3=No effort against gravity, leg falls to bed immediately. -: 4=No movement. -: UN=Amputation, joint fusion; explain in comments. 6. Responses (left leg): 0 6. Motor Functions (right leg): With patient lying supine, alternate sides and extend each leg (30 degrees always while supine). -: 0=No drift, leg holds position for full 5 seconds -: 1=Drift; leg falls before full 5 seconds but does not hit bed. -: 2=Some effort against gravity, leg falls to bed but some effort against gravity. -: 3=No effort against gravity, leg falls to bed immediately. -: 4=No movement. -: UN=Amputation, joint fusion; explain in comments. 6. Responses (right leg): 0 7. Limb Ataxia: With eyes open instruct patient to: -: a. "Touch your finger to your nose". -: b. "Touch your heel to your castano" -: 0=Absent -: 1=Present in one limb. -: 2=Present in two limbs. -: UN=Amputation or joint fusion; explain in comments. 7. Responses: 0 8. Sensory: Test sensation using pinprick or noxious stimuli. Test as many body parts as possible. -: 0=Normal;no sensory loss -: 1=Mile to moderate sensory loss (patient feels pin prick but is less sharp on affected side). -: 2=Severe or total sensory loss. 8. Responses: 0 9. Best Language: Instruct patient to: -: a. "Describe what you see in this picture." -: b. "Name the items in this picture." -: c. "Read these sentences." -: 0=No aphasia, normal -: 1=Mild to moderate aphasia. -: 2=Severe aphasia -: 3=Mute, global aphasia, no usable speech or auditory comprehension. 9. Responses: 0 10. Articulation, Dysarthia: Instruct patient to: -: "Read these words" or "Repeat these words" -: 0=Normal -: 1=Mild to moderate; patient may slur some words but can be understood without difficulty. -: 2=Severe; patients speech so slurred as to be unintelligible in the absence of dysphasia. -: UN=Intubated or other physical barrier, explain in comments. 10. Responses: 0 11. Extinction or inattention: 0=No abnormality -: 1= Visual, tactile, auditory, spatial, or personal inattention or extinction to bilateral simulation in one or the sensory modalities. -: 2=Profound ashley-inattention or ashley-inattention to more than one modality; does not recognize own hand. 11. Responses: 0 Total Score: 0
[2018-05-12 13:21] VITALS: BP 132/65
--- NOTE | 2018-05-12 15:09 | EKG REPORT ---
SEVERITY:- ABNORMAL ECG - SINUS RHYTHM CONSIDER LEFT VENTRICULAR HYPERTROPHY : Confirmed by: Brad Arnold 12-May-2018 15:08:36
== END 2018-05-12 13:39 | disposition home or self-care (01) ==
LOC: ER 09:58
DX: M62.81 Muscle weakness (generalized) (principal); I65.22 Occlusion and stenosis of left carotid artery; I65.21 Occlusion and stenosis of right carotid artery; C34.90 Malignant neoplasm of unspecified part of unspecified bronchus or lung; I25.2 Old myocardial infarction; E78.00 Pure hypercholesterolemia, unspecified; I10 Essential (primary) hypertension; J44.9 Chronic obstructive pulmonary disease, unspecified; Z98.51 Tubal ligation status
CPT/HCPCS: 93005; 99285; 36415; 82553; 82550; 83735; 85025; 85610; 80053; 81001; 84484; 71045; 72110; 70450; 93010; J7030; 96360

== ENCOUNTER → 2018-05-13 | Outpatient (CLI) | payer BC, MEDICARE ==
--- NOTE | 2018-05-13 12:27 | RADIOLOGY REPORT (SQ) ---
EXAM DESCRIPTION: MRI HEAD COMBO COMPLETED DATE/TIME: 05/13/2018 11:36 am REASON FOR STUDY: LUNG CANCER C34.11 MALIGNANT NEOPLASM OF UPPER LOBE, RIGHT BRONCHUS OR L COMPARISON: 04/21/2018 TECHNIQUE: Multiplanar imaging includes noncontrasted T1, T2, FLAIR, Diffusion with ADC map and post gadolinium contrast T1 sequences. Images stored on PACS. CONTRAST TYPE AND DOSE: 10 mL Dotare[employer] RENAL FUNCTION: Not recorded. LIMITATIONS: None. FINDINGS: ANATOMY: No anomalies. Normal vascular flow voids. Pituitary fossa normal. CSF SPACES: Atrophy-induced prominence of CSF spaces and ventricles. CEREBRUM: High-signal intensity lesions scattered throughout the white matter on FLAIR imaging with d istribution suggesting chronic micro-vascular ischemic change. No evidence of hemorrhage, mass, extra axial fluid collection or acute ischemic change. No enhancing lesions. POSTERIOR FOSSA: No signal alteration. No hemorrhage. No edema, masses, or mass effect. Internal elder tory canals, cerebello-pontine angles, mastoids normal. No enhancing lesions. ORBITS: No masses. Globes normal. PARANASAL SINUSES: No fluid levels. Mucosa normal. DIFFUSION: Normal. No evidence of recent infarct. OTHER: No other significant finding. IMPRESSION: No evidence of metastatic disease. EVIDENCE OF ACUTE STROKE: NO. TECHNICAL DOCUMENTATION: JOB ID: [id number] [employer]- All Rights Reserved Reading location - IP/workstation name: [email or web address]
== END ==
LOC: RAD 09:40
PROVIDERS: ATTEND Internal Medicine
DX: C34.11 Malignant neoplasm of upper lobe, right bronchus or lung (principal)
CPT/HCPCS: 70553; A9576

== ENCOUNTER 2018-06-12 10:39 | Emergency (ER) | payer BC, MEDICARE ==
--- NOTE | 2018-06-12 11:08 | ER Document Report ---
ED Medical Screen (RME) - General Chief Complaint: S/S of Possible Stroke Stated Complaint: POSSIBLE STROKE Primary Care Provider: CHUY ROBERTS MD [Primary Care Provider] - Follow up as needed Notes: 72-year-old female patient with vascular disease including carotid stenosis. She had a spell this morning where she fell in the bathroom could not get up, her spouse helped her get up. She was wanting to go have a cigarette, and again could not get up. She reports some weakness. He reports her looking like she recovered regurgitating some foamy stuff. He states this is the longest spell she has had of these events. She was seen here on 04/21/2018 with what sounded like a TIA and was transferred to [facility] for evaluation by her vascular surgeon. They elected not to do surgery due to her being such a high risk patient. She was seen here again 3 weeks later for what sounds like a TIA and was discharged back home to medical management. She has recently had an MRI of the brain due to her known lung cancer. It did not show disease. I have greeted and performed a rapid initial assessment of this patient. A comprehensive ED assessment and evaluation of the patient, analysis of test results and completion of the medical decision making process will be conducted by additional ED providers. - Related Data Allergies/Adverse Reactions: cilostazol [From Pletal] Adverse Reaction (Intermediate, Verified 05/12/18 10:02) Dizziness Past Medical History - Past Medical History Cardiac Medical History: Reports: Hx Heart Attack, Hx Hypercholesterolemia, Hx Hypertension Denies: Hx Coronary Artery Disease Pulmonary Medical History: Reports: Hx COPD, Hx Pneumonia - A BABY Denies: Hx Asthma, Hx Bronchitis Neurological Medical History: Denies: Hx Cerebrovascular Accident, Hx Seizures Renal/ Medical History: Denies: Hx Peritoneal Dialysis Musculoskeltal Medical History: Reports Hx Arthritis Past Surgical History: Reports: Hx Abdominal Surgery - barium study 10/18/11, Hx Breast Surgery - Left mastectomy, Hx Cardiac Surgery - carotid artery cleaned, Hx Carotid Endarterectomy - left- in approximately 2012, Hx Tubal Ligation - Immunizations Hx Diphtheria, Pertussis, Tetanus Vaccination: Yes Physical Exam - Vital signs Vitals: Temp Pulse Resp BP Pulse Ox 97.4 F 95 20 127/55 H 96 06/12/18 10:45 06/12/18 10:45 06/12/18 10:45 06/12/18 10:45 06/12/18 10:45 Course - Vital Signs Vital signs: Temp Pulse Resp BP Pulse Ox 97.4 F 95 20 127/55 H 96 06/12/18 10:45 06/12/18 10:45 06/12/18 10:45 06/12/18 10:45 06/12/18 10:45 Doctor's Discharge - Discharge Referrals: CHUY ROBERTS MD [Primary Care Provider] - Follow up as needed
[2018-06-12 11:41] LABS: ABSOLUTE EOSINOPHILS # (AUTO) 0.1 10^3/uL (0.0-0.6); ABSOLUTE LYMPHOCYTES (AUTO) 0.6 10^3/uL (0.5-4.7); ABSOLUTE MONOCYTES (AUTO) 0.1 10^3/uL (0.1-1.4); ABSOLUTE NEUT (AUTO) 6.3 10^3/uL (1.7-8.2); BASOPHILS % (AUTO) 0.1 % (0-2); EOSINOPHILS % (AUTO) 0.9 % (0-6); HEMATOCRIT 36.5 % (36.0-47.0); HEMOGLOBIN 12.4 g/dL (12.0-15.5); LYMPHOCYTES % (AUTO) 8.4 % (13-45); MEAN CORPUSCULAR HEMOGLOBIN 31.3 pg (27.0-33.4); MEAN CORPUSCULAR VOLUME 92 fl (80-97); MONOCYTES % (AUTO) 1.7 % (3-13); PLATELET COUNT 292 10^3/uL (150-450); RED BLOOD COUNT 3.96 10^6/uL (3.72-5.28); SEGMENTED NEUTROPHILS % (AUTO) 88.9 % (42-78); TOTAL CELLS COUNTED % (AUTO) 100 %; WHITE BLOOD COUNT 7.1 10^3/uL (4.0-10.5)
[2018-06-12 12:03] LABS: ALANINE AMINOTRANSFERASE 30 U/L (9-52); ALBUMIN 4.6 g/dL (3.5-5.0); ALKALINE PHOSPHATASE 63 U/L (38-126); ANION GAP 9 (5-19); ASPARTATE AMINO TRANSFERASE 20 U/L (14-36); BILIRUBIN,DIRECT 0.1 mg/dL (0.0-0.4); BILIRUBIN,TOTAL 0.5 mg/dL (0.2-1.3); BLOOD UREA NITROGEN 40 mg/dL (7-20); CALCIUM 9.4 mg/dL (8.4-10.2); CARBON DIOXIDE 24 mmol/L (22-30); CHLORIDE 104 mmol/L (98-107); CREATINE KINASE 26 U/L (30-135); GLUCOSE 104 mg/dL (75-110); POTASSIUM 5.4 mmol/L (3.6-5.0); SODIUM 137.3 mmol/L (137-145); TOTAL PROTEIN 7.4 g/dL (6.3-8.2)
[2018-06-12 12:12] LABS: CREATINE KINASE MB 0.43 ng/mL (<4.55)
[2018-06-12 12:16] LABS: TROPONIN I < 0.012 ng/mL
[2018-06-12 13:50] LABS: APPEARANCE,URINE SLIGHTLY-CLOUDY; BILIRUBIN,URINE NEGATIVE (NEGATIVE); COLOR,URINE YELLOW; GLUCOSE, URINE NEGATIVE (NEGATIVE); KETONES,URINE NEGATIVE (NEGATIVE); LEUKOCYTE ESTERASE,URINE NEGATIVE (NEGATIVE); NITRITE,URINE NEGATIVE (NEGATIVE); PROTEIN,URINE NEGATIVE (NEGATIVE); UROBILINOGEN,URINE NEGATIVE mg/dL (<2.0)
--- NOTE | 2018-06-12 15:12 | ER Document Report ---
ED General - General Chief Complaint: S/S of Possible Stroke Stated Complaint: POSSIBLE STROKE Time Seen by Provider: 06/12/18 11:52 Primary Care Provider: CHUY ROBERTS MD [Primary Care Provider] - Follow up as needed Mode of Arrival: Ambulatory Information source: Patient TRAVEL OUTSIDE OF THE [place] IN LAST 30 DAYS: No - HPI Patient complains to provider of: Syncope Onset: Other - This is an anxious 72-year-old woman with history of lung cancer for which she is currently undergoing treatment but continuing to smoke. She has some other health problems as well and has been evaluated by Dr. Narendra head as well as Dr. Roberts for these episodes in the past, she notes that intermittently she will have some palpitations associated lightheadedness and episodes where she has difficulty responding. These episodes of happened with increasing frequency over the last several weeks and her believes it could be related to her medications for her cancer. Nothing is made these symptoms any better or worse, Dr. Roberts believes that this is symptoms are likely related to anxiety for her. She denies recent fevers, chills, cough, abdominal pain, diarrhea constipation or dysuria no rashes or other issues. Today she had an episode in which she began to feel somewhat lightheaded according to her and then she leaned against the dryer for some period of time he then went to seek help he was telling her to get up and then she could not and then went to the floor at which time she seemed to bite down he was trying to open her mouth and then she got sick briefly thereafter. - Related Data Allergies/Adverse Reactions: cilostazol [From Pletal] Adverse Reaction (Intermediate, Verified 05/12/18 10:02) Dizziness Past Medical History - General Information source: Patient, Relative - Social History Smoking Status: Current Every Day Smoker Smoking Education Provided: Yes Drug Abuse: None Family History: Other Patient has suicidal ideation: No Patient has homicidal ideation: No - Past Medical History Cardiac Medical History: Reports: Hx Heart Attack, Hx Hypercholesterolemia, Hx H ypertension Denies: Hx Coronary Artery Disease Pulmonary Medical History: Reports: Hx COPD, Hx Pneumonia - A BABY Denies: Hx Asthma, Hx Bronchitis Neurological Medical History: Denies: Hx Cerebrovascular Accident, Hx Seizures Renal/ Medical History: Denies: Hx Peritoneal Dialysis Musculoskeletal Medical History: Reports Hx Arthritis Past Surgical History: Reports: Hx Abdominal Surgery - barium study 10/18/11, Hx Breast Surgery - Left mastectomy, Hx Cardiac Surgery - carotid artery cleaned, Hx Carotid Endarterectomy - left- in approximately 2012, Hx Tubal Ligation - Immunizations Hx Diphtheria, Pertussis, Tetanus Vaccination: Yes Hx Pneumococcal Vaccination: 05/16/15 Review of Systems - Review of Systems -: Yes All other systems reviewed and negative Physical Exam - Vital signs Vitals: Pulse Resp BP Pulse Ox 85 16 139/78 H 96 06/12/18 10:43 06/12/18 10:43 06/12/18 10:43 06/12/18 10:43 - General General appearance: Appears well, Other - Frail chronically ill-appearing woman In distress: Mild - HEENT Head: Normocephalic, Atraumatic Eyes: Normal - Respiratory Respiratory status: No respiratory distress Chest status: Nontender Breath sounds: Wheezing - Cardiovascular Rhythm: Regular Heart sounds: Normal auscultation Murmur: No - Abdominal Inspection: Normal Distension: No distension Bowel sounds: Normal Tenderness: Nontender Organomegaly: No organomegaly - Back Back: Normal, Nontender - Extremities General upper extremity: Normal inspection, Nontender, Normal color, Normal ROM, Normal temperature General lower extremity: Normal inspection, Nontender, Normal color, Normal ROM, Normal temperature, Normal weight bearing. No: Elva's sign - Neurological Neuro grossly intact: Yes Cognition: Normal Orientation: AAOx4 [place] Coma Scale Eye Opening: Spontaneous [place] Coma Scale Verbal: Oriented [place] Coma Scale Motor: Obeys Commands [place] Coma Scale Total: 15 Speech: Normal Motor strength normal: LUE, RUE, LLE, RLE Sensory: Normal Course - Re-evaluation Re-evalutation: 72-year-old female presents for evaluation of an episode in which she had palpitations and then went to the floor today. She has had multiple episodes like this in the past for which she is been evaluated by both Dr. Roberts as well as Dr. Narendra head. She is nonfocal neurologic examination at this time. In the past she has been evaluated for these and was told that they could represent mini strokes however she is undergone multiple MRIs of the head none of which have demonstrated any ischemic events. She achieved and transferred in the past evaluated by a neurologist who did carotid Dopplers and noted that there is a critical stenosis that is nonoperative because this patient's poor physical status based on her emphysema as well as lung cancer. Today with the episode that happened she noted that she had palpitations versus different episode than previous. We will obtain broad workup. Patient has a markedly elevated BUN to creatinine ratio suggestive that she is dehydrated, I did discuss the findings with both patient and her . We also did a CT of the head for concern of potential underlying serious injury, no obvious injury was identified for this patient. I do not believe that she has had a stroke, I do not believe that she has a pulmonary embolus, I do not believe that she had a heart attack as she has had negative troponins emergency department and cardiac monitoring without any arrhythmias. I believe the likely she was dehydrated and had a vagal episode. She will be encouraged to follow-up with Dr. Roberts as she has already, she is scheduled to see Dr. Narendra head in the coming days for continued ongoing management of her chemotherapy and cancer. - Vital Signs Vital signs: Temp Pulse Resp BP Pulse Ox 97.4 F 95 20 138/78 H 96 06/12/18 10:45 06/12/18 10:45 06/12/18 20:05 06/12/18 20:05 06/12/18 20:05 - Laboratory Result Diagrams: 06/12/18 11:26 06/12/18 11:26 Laboratory results interpreted by me: 06/12/18 06/12/18 06/12/18 11:26 11:26 12:49 RDW 19.0 H Seg Neutrophils % 88.9 H Lymphocytes % 8.4 L Monocytes % 1.7 L Potassium 5.4 H BUN 40 H Creatinine 1.28 H Est GFR ( Amer) 49 L Est GFR (Non-Af Amer) 41 L Creatine Kinase 26 L Urine Ascorbic Acid 40 H Discharge - Discharge Clinical Impression: Syncope and collapse, Palpitations, Dehydration Condition: Good Disposition: HOME, SELF-CARE Instructions: Palpitations (Irregular or Rapid Heartrate) ([facility]) Additional Instructions: You were seen today in the emergency department for palpitations. You had evaluation including a physical exam, and EKG, blood tests, CAT scan of your head. You have been on monitor for several hours. You have not had any abnormal heartbeats while you have been on monitor. I think that your likely having issues with palpitations because of the cancer treatments you are undergoing. You need to talk to Dr. Roberts tomorrow about your symptoms. You should return in case of any worsening chest pain shortness of breath or episodes where he passes out, I do not think it would be beneficial for you to stay in the hospital overnight at this time as you have been evaluated for this without any obvious cause being identified. I do not think that this was a stroke. I do not think that you had a heart attack. Prescriptions: Ondansetron [Zofran Odt 4 mg Tablet] 1 - 2 tab PO Q4H PRN #15 tab.rapdis PRN Reason: For Nausea/Vomiting Referrals: CHUY ROBERTS MD [Primary Care Provider] - Follow up as needed
[2018-06-12] MEDS ORDERED: NORMAL SALINE 1000 ML 1,000 ML IV ONE (15:15)
--- NOTE | 2018-06-12 15:38 | RADIOLOGY REPORT (SQ) ---
EXAM DESCRIPTION: CT HEAD WITHOUT COMPLETED DATE/TIME: 06/12/2018 3:29 pm REASON FOR STUDY: Concern for bleed COMPARISON: 05/12/2018 TECHNIQUE: Axial images acquired through the brain without intravenous contrast. Images reviewed wi th bone, brain and subdural windows. Additional sagittal and coronal reconstructions were generated. Images stored on PACS. All CT scanners at this facility use dose modulation, iterative reconstruction, and/or weight based d osing when appropriate to reduce radiation dose to as low as reasonably achievable (ALARA). [facility]: Dose Right [facility]: CareDose [facility]: Dose Right [facility]: Teradose 4D [facility]: Smart Inkvite RADIATION DOSE: CT Rad equipment meets quality standard of care and radiation dose reduction techniq ues were employed. CTDIvol: 53.2 mGy. DLP: 964 mGy-cm. mGy. LIMITATIONS: None. FINDINGS: VENTRICLES: Normal size and contour. CEREBRUM: No masses. No hemorrhage. No midline shift. No evidence for acute infarction. Normal gra y/white matter differentiation. No areas of low density in the white matter. CEREBELLUM: No masses. No hemorrhage. No alteration of density. No evidence for acute infarction. EXTRAAXIAL SPACES: No fluid collections. No masses. ORBITS AND GLOBE: No intra- or extraconal masses. Normal contour of globe without masses. CALVARIUM: No fracture. PARANASAL SINUSES: No fluid or mucosal thickening. SOFT TISSUES: No mass or hematoma. OTHER: No other significant finding. IMPRESSION: No acute intracranial pathology. No evidence of hemorrhage. EVIDENCE OF ACUTE STROKE: NO. COMMENT: Quality ID # [id number]: Final reports with documentation of one or more dose reduction techniques (e.g., Automated exposure control, adjustment of the mA and/or kV according to patient size, use of iterative reconstruction technique) TECHNICAL DOCUMENTATION: JOB ID: [id number] [employer]- All Rights Reserved Reading location - IP/workstation name: [email or web address]
[2018-06-12] MEDS ORDERED: LIDOCAINE 4% TRANSPARENT DRESSING 5 GM KIT TP ONE (16:47)
--- NOTE | 2018-06-12 18:53 | EKG REPORT ---
SEVERITY:- ABNORMAL ECG - SINUS RHYTHM CONSIDER LEFT VENTRICULAR HYPERTROPHY : Confirmed by: Jacinto Erickson MD 12-Jun-2018 18:52:56
[2018-06-12 20:38] VITALS: BP 138/78
== END 2018-06-12 20:39 | disposition home or self-care (01) ==
LOC: ER 10:39
DX: R55 Syncope and collapse (principal); R00.2 Palpitations; E86.0 Dehydration; C34.90 Malignant neoplasm of unspecified part of unspecified bronchus or lung; Z79.899 Other long term (current) drug therapy; F17.200 Nicotine dependence, unspecified, uncomplicated; I10 Essential (primary) hypertension; I25.2 Old myocardial infarction; J43.9 Emphysema, unspecified
CPT/HCPCS: 36415; 70450; 80053; 81001; 82550; 82553; 84484; 85025; 93005; 93010; 99285

== ENCOUNTER 2018-06-17 11:14 | Emergency (ER) | payer BC, MEDICARE ==
--- NOTE | 2018-06-17 11:59 | ER Document Report ---
ED Medical Screen (RME) - General Chief Complaint: Back Pain Stated Complaint: BACK PAIN Time Seen by Provider: 06/17/18 11:54 Primary Care Provider: CHUY ROEBRTS MD [Primary Care Provider] - Follow up as needed TRAVEL OUTSIDE OF THE [place] IN LAST 30 DAYS: No - HPI Notes: 06/17/18 11:58 History of lung cancer coming in for heart fluttering ongoing for quite some time worse last night - Related Data Allergies/Adverse Reactions: cilostazol [From Pletal] Adverse Reaction (Intermediate, Verified 06/17/18 11:14) Dizziness Past Medical History - Past Medical History Cardiac Medical History: Reports: Hx Heart Attack, Hx Hypercholesterolemia, Hx Hypertension Denies: Hx Coronary Artery Disease Pulmonary Medical History: Reports: Hx COPD, Hx Pneumonia - A BABY Denies: Hx Asthma, Hx Bronchitis Neurological Medical History: Denies: Hx Cerebrovascular Accident, Hx Seizures Renal/ Medical History: Denies: Hx Peritoneal Dialysis Musculoskeltal Medical History: Reports Hx Arthritis Past Surgical History: Reports: Hx Abdominal Surgery - barium study 10/18/11, Hx Breast Surgery - Left mastectomy, Hx Cardiac Surgery - carotid artery cleaned, Hx Carotid Endarterectomy - left- in approximately 2012, Hx Tubal Ligation - Immunizations Hx Diphtheria, Pertussis, Tetanus Vaccination: Yes Review of Systems - Review of Systems Cardiovascular: Palpitations Physical Exam - Vital signs Vitals: Temp Pulse Resp BP Pulse Ox 97.6 F 66 18 127/54 H 98 06/17/18 11:21 06/17/18 11:21 06/17/18 11:21 06/17/18 11:21 06/17/18 11:21 - Respiratory Respiratory status: No respiratory distress Chest status: Nontender Breath sounds: Normal Chest palpation: Normal Course - Vital Signs Vital signs: Temp Pulse Resp BP Pulse Ox 97.6 F 66 18 127/54 H 98 06/17/18 11:21 06/17/18 11:21 06/17/18 11:21 06/17/18 11:21 06/17/18 11:21 Doctor's Discharge - Discharge Referrals: CHUY ROBERTS MD [Primary Care Provider] - Follow up as needed
[2018-06-17] MEDS ORDERED: LIDOCAINE 4% TRANSPARENT DRESSING 5 GM KIT TP ONE (12:25)
[2018-06-17] MEDS ORDERED: NORFLURANE/PENTAFLUOROPROPANE 30 ML SPRAY TP ONE ×2 (12:31→12:33)
--- NOTE | 2018-06-17 12:50 | RADIOLOGY REPORT (SQ) ---
EXAM DESCRIPTION: CHEST SINGLE VIEW COMPLETED DATE/TIME: 06/17/2018 12:26 pm REASON FOR STUDY: sob COMPARISON: 05/12/2018 EXAM PARAMETERS: NUMBER OF VIEWS: One view. TECHNIQUE: Single frontal radiographic view of the chest acquired. RADIATION DOSE: NA LIMITATIONS: None. FINDINGS: LUNGS AND PLEURA: Stable right upper lobe mass lesion. No acute opacities. No effusions. MEDIASTINUM AND HILAR STRUCTURES: No masses. Contour normal. HEART AND VASCULAR STRUCTURES: Heart normal in size. Normal vasculature. BONES: No acute findings. HARDWARE: Venous access catheter is unchanged. OTHER: No other significant finding. IMPRESSION: Stable right upper lobe mass. No acute findings. TECHNICAL DOCUMENTATION: JOB ID: [id number] [employer]- All Rights Reserved Reading location - IP/workstation name: [email or web address]
[2018-06-17 13:10] LABS: ABSOLUTE LYMPHOCYTES (AUTO) 0.6 10^3/uL (0.5-4.7); ABSOLUTE MONOCYTES (AUTO) 0.1 10^3/uL (0.1-1.4); ABSOLUTE NEUT (AUTO) 3.5 10^3/uL (1.7-8.2); BASOPHILS % (AUTO) 0.3 % (0-2); EOSINOPHILS % (AUTO) 0.3 % (0-6); MEAN CORPUSCULAR HEMOGLOBIN 31.7 pg (27.0-33.4); MEAN CORPUSCULAR HGB CONC 34.7 g/dL (32.0-36.0); MEAN CORPUSCULAR VOLUME 92 fl (80-97); MONOCYTES % (AUTO) 2.9 % (3-13); PLATELET COUNT 298 10^3/uL (150-450); RED BLOOD COUNT 3.17 10^6/uL (3.72-5.28); RED CELL DISTRIBUTION WIDTH 18.8 % (11.5-14.0); SEGMENTED NEUTROPHILS % (AUTO) 82.5 % (42-78); TOTAL CELLS COUNTED % (AUTO) 100 %; WHITE BLOOD COUNT 4.2 10^3/uL (4.0-10.5)
[2018-06-17 13:25] LABS: INTERNATIONAL RATION (INR) 0.91; PROTHROMBIN TIME 12.7 SEC (11.4-15.4)
[2018-06-17 13:32] LABS: ALANINE AMINOTRANSFERASE 28 U/L (9-52); ALBUMIN 3.8 g/dL (3.5-5.0); ALKALINE PHOSPHATASE 56 U/L (38-126); ANION GAP 7 (5-19); ASPARTATE AMINO TRANSFERASE 19 U/L (14-36); BILIRUBIN,DIRECT 0.2 mg/dL (0.0-0.4); BILIRUBIN,TOTAL 0.3 mg/dL (0.2-1.3); BLOOD UREA NITROGEN 33 mg/dL (7-20); CALCIUM 8.5 mg/dL (8.4-10.2); CARBON DIOXIDE 25 mmol/L (22-30); CHLORIDE 106 mmol/L (98-107); CREATINE KINASE 34 U/L (30-135); GLUCOSE 110 mg/dL (75-110); LIPASE 99.8 U/L (23-300); POTASSIUM 4.7 mmol/L (3.6-5.0); TOTAL PROTEIN 6.2 g/dL (6.3-8.2)
[2018-06-17 13:42] LABS: CREATINE KINASE MB 0.73 ng/mL (<4.55); TROPONIN I 0.023 ng/mL
[2018-06-17 13:47] LABS: FREE T4 (FREE THYROXINE) 1.02 ng/dL (0.78-2.19)
[2018-06-17 14:01] LABS: THYROID STIMULATING HORMONE 4.57 uIU/mL (0.47-4.68)
--- NOTE | 2018-06-17 16:09 | RADIOLOGY REPORT (SQ) ---
EXAM DESCRIPTION: CTA CHEST COMPLETED DATE/TIME: 06/17/2018 3:45 pm REASON FOR STUDY: chest/back pain COMPARISON: 03/16/2018 TECHNIQUE: CT scan of the chest performed using helical scanning technique with dynamic intravenous contrast injection. Images reviewed with lung, soft tissue and bone windows. Reconstructed coronal and sagittal MPR images reviewed. Additional 3 dimensional post-processing performed to develop Maximal Intensity Projection images (WA P). All images stored on PACS. All CT scanners at this facility use dose modulation, iterative reconstruction, and/or weight based d osing when appropriate to reduce radiation dose to as low as reasonably achievable (ALARA). [facility]: Dose Right [facility]: CareDose [facility]: Dose Right [facility]: Teradose 4D [facility]: iMeigu CONTRAST TYPE AND DOSE: contrast/concentration: Isovue 350.00 mg/ml; Total Contrast Delivered: 67.0 ml; Total Saline Delivered: 80.0 ml Contrast bolus optimized for the pulmonary arteries. Not diagnostic for the aorta. RENAL FUNCTION: GFR > 60. RADIATION DOSE: CT Rad equipment meets quality standard of care and radiation dose reduction techniq ues were employed. CTDIvol: 14.3 - 16.5 mGy. DLP: 544 mGy-cm. . LIMITATIONS: None. FINDINGS: LUNGS AND PLEURA: Redemonstrated spiculated right apical pulmonary mass, slightly decrease d in size compared to prior examination, measuring 5.1 x 4.2 cm, previously 29 x 5.3 cm when measured similarly. There are numerous bilateral small pulmonary nodules, the largest of which may have incr eased in size, measuring 8 mm, previously 5 mm when measured similarly (series 4, image 47). AORTA AND GREAT VESSELS: No aneurysm. Contrast bolus not optimized for the aorta. HEART: No pericardial effusion. Three-vessel coronary artery calcifications. PULMONARY ARTERIES: No emboli visualized in the main pulmonary arteries or the segmental branches. HILAR AND MEDIASTINAL STRUCTURES: No identified masses or abnormal nodes. HARDWARE: None in the chest. UPPER ABDOMEN: No significant findings. Limited exam. THYROID AND OTHER SOFT TISSUES: No masses. No adenopathy. BONES: No acute or significant finding. 3D MIPS: Confirm above findings. OTHER: No other significant finding. IMPRESSION: 1. Negative examination for pulmonary embolism. 2. Redemonstrated spiculated right apical pulmonary mass, slightly decreased in size compared to prio r examination, measuring 5.1 x 4.2 cm, previously 29 x 5.3 cm when measured similarly. 3. There are numerous bilateral small pulmonary nodules, the largest of which may have increased in s ize, measuring 8 mm, previously 5 mm when measured similarly. Nodules are suspicious for metastases. Attention on follow-up. COMMENT: Quality ID # [id number]: Final reports with documentation of one or more dose reduction techniques (e.g., Automated exposure control, adjustment of the mA and/or kV according to patient size, use of iterative reconstruction technique) TECHNICAL DOCUMENTATION: JOB ID: [id number] [employer]- All Rights Reserved Reading location - IP/workstation name: [email or web address]
--- NOTE | 2018-06-17 16:58 | ER Document Report ---
ED General - General Chief Complaint: Back Pain Stated Complaint: BACK PAIN Time Seen by Provider: 06/17/18 11:54 Primary Care Provider: CHUY WHITNEY MD [Primary Care Provider] - Follow up as needed Mode of Arrival: Ambulatory Information source: Patient Notes: 72-year-old female with a history of lung cancer presents to the emergency room with right back pain intermittently for the last day. Patient does report having intermittent palpitations for the past week. She was seen in the emergency room on Tuesday after fainting spell. She had a workup at that time and was discharged. She denies any fever or chills. The pain seems to be worse with movement and palpation. TRAVEL OUTSIDE OF THE [place] IN LAST 30 DAYS: No - HPI Onset: Yesterday Onset/Duration: Gradual Quality of pain: Dull Severity: Moderate Pain Level: 2 Associated symptoms: Other - Intermittent palpitations. denies: Chest pain, Fever, Shortness of breath Exacerbated by: Movement Relieved by: Remaining still Similar symptoms previously: No Recently seen / treated by doctor: Yes - Related Data Allergies/Adverse Reactions: cilostazol [From Pletal] Adverse Reaction (Intermediate, Verified 06/17/18 11:14) Dizziness Past Medical History - General Information source: Patient, Relative - Social History Smoking Status: Current Every Day Smoker Cigarette use (# per day): Yes - Half a pack per day Chew tobacco use (# tins/day): No Frequency of alcohol use: None Drug Abuse: None Lives with: Family Family History: Other Patient has suicidal ideation: No Patient has homicidal ideation: No - Past Medical History Cardiac Medical History: Reports: Hx Heart Attack, Hx Hypercholesterolemia, Hx Hypertension Denies: Hx Coronary Artery Disease Pulmonary Medical History: Reports: Hx COPD, Hx Pneumonia - A BABY Denies: Hx Asthma, Hx Bronchitis Neurological Medical History: Denies: Hx Cerebrovascular Accident, Hx Seizures Renal/ Medical History: Denies: Hx Peritoneal Dialysis Musculoskeletal Medical History: Reports Hx Arthritis Past Surgical History: Reports: Hx Abdominal Surgery - barium study 10/18/11, Hx Breast Surgery - Left mastectomy, Hx Cardiac Surgery - carotid artery cleaned, Hx Carotid Endarterectomy - left- in approximately 2012, Hx Tubal Ligation - Immunizations Hx Diphtheria, Pertussis, Tetanus Vaccination: Yes Hx Pneumococcal Vaccination: 05/16/15 Review of Systems - Review of Systems Constitutional: denies: Chills, Fever EENT: No symptoms reported Cardiovascular: Palpitations, Syncope - Episode of syncope last week and was evaluated at that time.. denies: Chest pain Respiratory: denies: Cough, Short of breath Gastrointestinal: denies: Abdomen distended, Abdominal pain, Diarrhea Genitourinary: No symptoms reported Female Genitourinary: No symptoms reported Musculoskeletal: See HPI Skin: No symptoms reported Hematologic/Lymphatic: No symptoms reported Neurological/Psychological: No symptoms reported Physical Exam - Vital signs Vitals: Temp Pulse Resp BP Pulse Ox 97.6 F 66 18 127/54 H 98 06/17/18 11:21 06/17/18 11:21 06/17/18 11:21 06/17/18 11:21 06/17/18 11:21 Notes: Physical exam: GENERAL: 3 in no acute distress. HEAD: Atraumatic, normocephalic. EYES: Pupils equal round and reactive to light, extraocular movements intact, sclera anicteric, conjunctiva are normal. ENT: TMs normal, nares patent, oropharynx clear without exudates. Moist mucous membranes. NECK: Normal range of motion, supple without obvious mass or JVD. LUNGS: Breath sounds clear to auscultation bilaterally and equal. No wheezes rales or rhonchi. Back: Patient has no palpable tenderness over the cervical spine, thoracic spine, lumbar spine. She does appear to have some tenderness over the posterior right back to palpation. There is no crepitus. There is no skin changes. There is no obvious lesions. Pain seems to be musculoskeletal in nature. HEART: Regular rate and rhythm without murmurs, rubs or gallops. ABDOMEN: Soft, normoactive bowel sounds. No tenderness to palpation. No guarding, no rebound. No masses appreciated. EXTREMITIES: Normal range of motion, no pitting or edema. No clubbing or cyanosis. NEUROLOGICAL: Cranial nerves II through XII grossly intact. Normal speech, moving all extremities. PSYCH: Normal mood, normal affect. SKIN: Warm, Dry, normal turgor, no rashes or lesions noted. Course - Re-evaluation Re-evalutation: 06/17/18 16:57 I discussed case with Dr. Diop who recommended a second cardiac enzyme and discharge if that is okay. 06/17/18 17:[address] Wong (non destructive evaluation technician) regarding patient's troponins both today as well as Tuesday and the presenting symptoms. He so felt that the patient could be followed up as an outpatient and is willing to see the patient in the office. 06/17/18 18:58 I did discuss the case with Dr. Fisher (oncology) regarding the results of today's test and the plan. - Vital Signs Vital signs: Temp Pulse Resp BP Pulse Ox 97.7 F 66 25 H 122/62 96 06/17/18 19:23 06/17/18 11:21 06/17/18 19:01 06/17/18 19:01 06/17/18 19:01 - Laboratory Result Diagrams: 06/17/18 13:05 06/17/18 12:50 Laboratory results interpreted by me: 06/17/18 06/17/18 12:50 13:05 RBC 3.17 L Hgb 10.0 L Hct 29.0 L RDW 18.8 H Seg Neutrophils % 82.5 H Monocytes % 2.9 L BUN 33 H Est GFR (Non-Af Amer) 53 L Total Protein 6.2 L - Diagnostic Test Radiology reviewed: Image reviewed, Reports reviewed - CTA shows a spiculated mass (known). No pulmonary emboli. - EKG Interpretation by Me Rate: Normal Rhythm: NSR - EKG shows normal sinus rhythm with a ventricular rate of 89, there are PVCs. No ST-T wave changes Discharge - Discharge Clinical Impression: Back pain musculoskeletal in nature, Palpitations. Condition: Stable Disposition: HOME, SELF-CARE Additional Instructions: Did discuss the case with Dr. Dane Pro who is covering for Dr. Whitney. I also spoke with the non destructive evaluation technician reymundo. I also spoke to Dr. Jordan head let him know the results of today's test. I want you to take it easy over the weekend. Take pain medicine as needed. I would like you to follow-up with Dr. Arnold the non destructive evaluation technician on Tuesday to have an event recorder placed. Return to the emergency room for worsening pain, palpitations or any concerns or getting worse. The pain medicine you're taking prescribed as a narcotic. There are several important things you should know about this medicine: 1. This medicine contains Tylenol: It is important that you do not take Tylenol (or acetaminophen) while on this medicine. Tylenol is metabolized by the liver and taking too much Tylenol (acetaminophen) can lay to liver damage and even liver failure. 2. Taking narcotics for too long can lead to physical and mental dependence. Take this medicine only if really needed and in the lowest quantity to achieve pain relief. 3. Do not drink alcohol while on this medicine. Alcohol interacts with narcotics and the combination can be dangerous. 4. Do not drive or operate machinery while on this medicine. 5. Narcotics do cause constipation, so drink plenty of fluids and daily stool softeners. Prescriptions: Oxycodone HCl/Acetaminophen [Percocet 5-325 mg Tablet] 1 - 2 tab PO ASDIR PRN #25 tablet PRN Reason: Referrals: CHUY WHITNEY MD [Primary Care Provider] - Follow up as needed
[2018-06-17] MEDS ORDERED: OXYCODONE-ACETAMINOPHEN 5-325 MG TABLET PO ONE ×2 (17:08→18:39)
--- NOTE | 2018-06-17 17:16 | EKG REPORT ---
SEVERITY:- ABNORMAL ECG - SINUS RHYTHM MULTIPLE VENTRICULAR PREMATURE COMPLEXES CONSIDER LEFT VENTRICULAR HYPERTROPHY : Confirmed by: Jacinto Erickson MD 17-Jun-2018 17:15:27
[2018-06-17 19:07] VITALS: BP 122/62
== END 2018-06-17 19:23 | disposition home or self-care (01) ==
LOC: ER 11:14
DX: M54.9 Dorsalgia, unspecified (principal); R00.2 Palpitations; R91.8 Other nonspecific abnormal finding of lung field; I10 Essential (primary) hypertension; I25.2 Old myocardial infarction; J44.9 Chronic obstructive pulmonary disease, unspecified; F17.210 Nicotine dependence, cigarettes, uncomplicated; Z85.118 Personal history of other malignant neoplasm of bronchus and lung
CPT/HCPCS: 36415; 36591; 71045; 71275; 80053; 82550; 82553; 83690; 83735; 84439; 84443; 84484; 85025; 85610; 93005; 93010; 99284

== ENCOUNTER 2018-06-18 18:55 | Emergency (ER) | payer BC, MEDICARE ==
--- NOTE | 2018-06-18 19:40 | ER Document Report ---
ED General - General Chief Complaint: Weakness Stated Complaint: FALL Time Seen by Provider: 06/18/18 19:17 Primary Care Provider: JAMESON GONZALEZ MD [ACTIVE STAFF] - Follow up in 3-5 days CHUY ROBERTS MD [Primary Care Provider] - Follow up in 3-5 days Notes: Patient is a 72-year-old female who presents to the emergency department with a chief complaint of fall. She fell at home this afternoon. She normally walks around in the halls at home and she was in the hallway when she fell on both her knees. Denies hitting her head, chest pain, abdominal pain, and she was able to get up and walk around again. She denies any pain in her knees and does not believe she injured her knees. Her associated symptoms are weakness with both arms and legs and slurred speech. She has a history of lung cancer and her last dose of IV chemotherapy will be this . She also has a history of DVTs. She was seen here in the emergency department yesterday and on June 13 for the same symptoms. TRAVEL OUTSIDE OF THE [place] IN LAST 30 DAYS: No - Related Data Allergies/Adverse Reactions: cilostazol [From Pletal] Adverse Reaction (Intermediate, Verified 06/17/18 11:14) Dizziness Past Medical History - General Information source: Patient - Social History Smoking Status: Current Every Day Smoker Chew tobacco use (# tins/day): No Drug Abuse: None Family History: Other Patient has suicidal ideation: No Patient has homicidal ideation: No - Past Medical History Cardiac Medical History: Reports: Hx Heart Attack, Hx Hypercholesterolemia, Hx Hypertension Denies: Hx Coronary Artery Disease Pulmonary Medical History: Reports: Hx COPD, Hx Pneumonia - A BABY Denies: Hx Asthma, Hx Bronchitis Neurological Medical History: Denies: Hx Cerebrovascular Accident, Hx Seizures Renal/ Medical History: Denies: Hx Peritoneal Dialysis Musculoskeletal Medical History: Reports Hx Arthritis Past Surgical History: Reports: Hx Abdominal Surgery - barium study 10/18/11, Hx Breast Surgery - Left mastectomy, Hx Cardiac Surgery - carotid artery cleaned, Hx Carotid Endarterectomy - left- in approximately 2012, Hx Tubal Ligation - Immunizations Hx Diphtheria, Pertussis, Tetanus Vaccination: Yes Hx Pneumococcal Vaccination: 05/16/15 Review of Systems - Review of Systems Notes: REVIEW OF SYSTEMS: CONSTITUTIONAL : See HPI. EENT: Denies eye, ear, throat, or mouth pain, discharge, or symptoms. Denies nasal or sinus congestion. CARDIOVASCULAR: See HPI. RESPIRATORY: Denies shortness of breath, cough, congestion, difficulty breathing, or wheezing. GASTROINTESTINAL: Denies nausea, vomiting, and diarrhea. Denies abdominal pain. Denies constipation. GENITOURINARY: Denies difficulty urinating, burning, blood in urine, urgency or frequency. MUSCULOSKELETAL: See HPI. SKIN: Denies rash, itchiness, or lesions HEMATOLOGIC : Denies easy bruising or bleeding. LYMPHATIC: Denies swollen, painful, enlarged glands. NEUROLOGICAL: See HPI. PSYCHIATRIC: Denies stress, anxiety, alteration in sleep patterns, or depressio n. All other systems reviewed and negative. Physical Exam - Vital signs Vitals: Temp Pulse Resp BP Pulse Ox 98.2 F 90 18 121/56 L 96 06/18/18 19:03 06/18/18 19:03 06/18/18 19:03 06/18/18 19:03 06/18/18 19:03 - Notes Notes: PHYSICAL EXAMINATION: GENERAL: Appears chronically ill, no acute distress. HEAD: Normocephalic, atraumatic. EYES: PERRL, conjunctiva normal, all extraocular movements intact, sclera nonicteric ENT: Moist mucous membranes. NECK: Supple, no noticeable swelling, redness, rash. Normal range of motion. LUNGS: Equal breath sounds bilaterally and clear to auscultation. No wheezes rales or rhonchi. CARDIOVASCULAR: Grade 2 systolic murmur, regular rate, regular rhythm. Radial pulses 2+, normal. ABDOMEN: Normoactive bowel sounds. Soft, nontender, no guarding, no rebound tenderness, and no masses palpated. EXTREMITIES: Normal strength and range of motion, no pitting or edema. No cyanosis. NEUROLOGICAL: Moves all extremities upon command. Strength 5/5 in all extremities. PSYCH: Normal mood, normal affect. SKIN: Warm, dry. No rash, lesions, ulcerations noted. Normal skin turgor. Course - Re-evaluation Re-evalutation: 06/18/18 20:[address] of the head and chest x-ray are negative. I do not suspect she is having an acute stroke, intracranial bleed, or any life-threatening etiology at this time. Patient's white blood cell count has dropped to 2400, which is a decrease from yesterday. Her electrolytes are unremarkable and her troponin is negative. Due to her drop in white blood cell count, I will contact Dr. Gonzalez in regards to her case. 06/18/18 21:20 I have spoke with Dr. Gonzalez in regards to the patient's visit. I have discu ssed her lab values with him and he suggests that she goes home and rest. He would like her to follow-up with him in the office. He is also recommending that she receive IV fluids. 06/18/18 22:11 I have reevaluated the patient and was told that her first urine sample next only dropped in the toilet, so another one is being sent now. If her urinalysis is normal, she is stable for discharge. - Vital Signs Vital signs: Temp Pulse Resp BP Pulse Ox 98.3 F 90 23 H 135/63 H 97 06/18/18 20:50 06/18/18 19:03 06/18/18 22:00 06/18/18 21:01 06/18/18 22:00 - Laboratory Result Diagrams: 06/18/18 19:55 06/18/18 19:55 Laboratory results interpreted by me: 06/18/18 06/18/18 19:55 19:55 WBC 2.5 L D RBC 3.23 L Hgb 10.2 L Hct 29.7 L RDW 19.1 H Absolute Neutrophils 1.6 L BUN 28 H Est GFR (Non-Af Amer) 52 L Glucose 115 H Creatine Kinase 29 L Total Protein 6.2 L - EKG Interpretation by Me Additional EKG results interpreted by me: 06/18/18 19:48 Sinus rhythm. Heart rate 79.; AZ 140 QRS 86; QT 384; QTC 441. No ST elevations or depressions. No acute change from previous EKG done yesterday. Discharge - Discharge Clinical Impression: Palpitations, Weakness Fall Qualifiers: Encounter type: initial encounter Qualified Code(s): W19.XXXA - Unspecified fall, initial encounter Condition: Stable Disposition: HOME, SELF-CARE Additional Instructions: You were seen today in the emergency department for a fall and weakness. Most likely cause of your symptoms are due to your chemotherapy. Please make sure that you get up, you have somebody with you. Make sure you have somebody with you when you are walking. Please follow-up with Dr. Roberts and Dr. Gonzalez this week in regards to your visit. Please try to limit the narcotic pain medication you were given yesterday. If you do take your narcotic pain medicine that was given to yesterday, make sure that you are going to sleep and make sure someone is there to help you. If you have worsening symptoms, develop weakness on one side of your body, have a facial droop or any other symptoms that are worrisome to you, please return to the emergency department. Referrals: CHUY ROBERTS MD [Primary Care Provider] - Follow up in 3-5 days JAMESON GONZALEZ MD [ACTIVE STAFF] - Follow up in 3-5 days
[2018-06-18 20:05] LABS: ABSOLUTE LYMPHOCYTES (AUTO) 0.7 10^3/uL (0.5-4.7); ABSOLUTE MONOCYTES (AUTO) 0.1 10^3/uL (0.1-1.4); ABSOLUTE NEUT (AUTO) 1.6 10^3/uL (1.7-8.2); BASOPHILS % (AUTO) 0.7 % (0-2); EOSINOPHILS % (AUTO) 1.6 % (0-6); HEMATOCRIT 29.7 % (36.0-47.0); HEMOGLOBIN 10.2 g/dL (12.0-15.5); LYMPHOCYTES % (AUTO) 29.4 % (13-45); MEAN CORPUSCULAR HEMOGLOBIN 31.5 pg (27.0-33.4); MEAN CORPUSCULAR HGB CONC 34.3 g/dL (32.0-36.0); MEAN CORPUSCULAR VOLUME 92 fl (80-97); MONOCYTES % (AUTO) 4.4 % (3-13); PLATELET COUNT 288 10^3/uL (150-450); RED BLOOD COUNT 3.23 10^6/uL (3.72-5.28); RED CELL DISTRIBUTION WIDTH 19.1 % (11.5-14.0); SEGMENTED NEUTROPHILS % (AUTO) 63.9 % (42-78); TOTAL CELLS COUNTED % (AUTO) 100 %
[2018-06-18 20:23] LABS: WHITE BLOOD COUNT 2.5 10^3/uL (4.0-10.5)
[2018-06-18 20:25] LABS: ALANINE AMINOTRANSFERASE 28 U/L (9-52); ALBUMIN 3.7 g/dL (3.5-5.0); ALKALINE PHOSPHATASE 52 U/L (38-126); ANION GAP 8 (5-19); ASPARTATE AMINO TRANSFERASE 18 U/L (14-36); BILIRUBIN,DIRECT 0.1 mg/dL (0.0-0.4); BILIRUBIN,TOTAL 0.3 mg/dL (0.2-1.3); BLOOD UREA NITROGEN 28 mg/dL (7-20); CALCIUM 8.6 mg/dL (8.4-10.2); CARBON DIOXIDE 24 mmol/L (22-30); CHLORIDE 105 mmol/L (98-107); CREATINE KINASE 29 U/L (30-135); GLUCOSE 115 mg/dL (75-110); POTASSIUM 4.9 mmol/L (3.6-5.0); SODIUM 137.1 mmol/L (137-145); TOTAL PROTEIN 6.2 g/dL (6.3-8.2)
[2018-06-18 20:37] LABS: CREATINE KINASE MB 0.55 ng/mL (<4.55); TROPONIN I 0.021 ng/mL
--- NOTE | 2018-06-18 20:52 | RADIOLOGY REPORT (SQ) ---
EXAM DESCRIPTION: CT HEAD WITHOUT IV CONTRAST COMPLETED DATE/TME: 06/18/2018 19:29 CLINICAL HISTORY: 72 years, Female, fall This exam was performed according to our departmental dose-optimization program which includes automated exposure control, adjustment of the mA and/or kVp according to patient size and/or use of iterative reconstruction technique where applicable. FINDINGS: No acute intracranial hemorrhage, mass effect or midline shift. No extra-axial fluid collections. Ventricles and subarachnoid spaces are slightly dilated consistent with cerebral atrophy. Mild patchy hypodense areas in the periventricular white matter of both cerebral hemispheres consistent with chronic small vessel ischemic changes. Visualized paranasal sinuses and the mastoid air cells are clear. The skull is intact. IMPRESSION: No acute intracranial hemorrhage.
--- NOTE | 2018-06-18 20:53 | RADIOLOGY REPORT (SQ) ---
EXAM DESCRIPTION: XR CHEST 1 VIEW COMPLETED DATE/TME: 06/18/2018 19:28 CLINICAL HISTORY: 72 years, Female, heart flutters Compared to chest radiograph dated 06/17/2018. Findings: Heart is not enlarged. No consolidation or pleural effusion. Right chest port is noted. Right upper lobe mass is again noted, unchanged. IMPRESSION: No acute disease. No change.
--- NOTE | 2018-06-18 20:55 | EKG REPORT ---
SEVERITY:- ABNORMAL ECG - SINUS RHYTHM CONSIDER LEFT VENTRICULAR HYPERTROPHY : Confirmed by: Jacinto Erickson MD 18-Jun-2018 20:54:50
[2018-06-18] MEDS ORDERED: NORMAL SALINE 1000 ML 1,000 ML IV ONE (21:09)
[2018-06-18 22:31] LABS: APPEARANCE,URINE CLEAR; BILIRUBIN,URINE NEGATIVE (NEGATIVE); COLOR,URINE YELLOW; GLUCOSE, URINE NEGATIVE (NEGATIVE); KETONES,URINE NEGATIVE (NEGATIVE); LEUKOCYTE ESTERASE,URINE NEGATIVE (NEGATIVE); NITRITE,URINE NEGATIVE (NEGATIVE); PROTEIN,URINE NEGATIVE (NEGATIVE); URINE SPECIFIC GRAVITY 1.013; UROBILINOGEN,URINE NEGATIVE mg/dL (<2.0)
[2018-06-18 22:39] VITALS: BP 139/61
== END 2018-06-18 22:50 | disposition home or self-care (01) ==
LOC: ER 18:55
DX: R00.2 Palpitations (principal); R53.1 Weakness; W01.0XXA Fall on same level from slipping, tripping and stumbling without subsequent striking against object, initial encounter; F17.200 Nicotine dependence, unspecified, uncomplicated; I10 Essential (primary) hypertension; E78.00 Pure hypercholesterolemia, unspecified; Z86.718 Personal history of other venous thrombosis and embolism; I25.2 Old myocardial infarction; Z98.51 Tubal ligation status
CPT/HCPCS: 93005; 99285; 96360; 36415; 82553; 82550; 85025; 80053; 81001; 84484; 71045; 70450; 93010; J7030

== ENCOUNTER 2018-06-19 11:55 | Emergency (ER) | payer BC, MEDICARE ==
--- NOTE | 2018-06-19 12:23 | ER Document Report ---
ED General - General Chief Complaint: Near Syncope Stated Complaint: POSSIBLE SYNCOPE Time Seen by Provider: 06/19/18 12:05 Primary Care Provider: CHUY WHITNEY MD [Primary Care Provider] - Follow up as needed TRAVEL OUTSIDE OF THE [place] IN LAST 30 DAYS: No - HPI Notes: Patient is a 72-year-old female with a history of COPD, tobacco abuse, hypertension, active lung cancer on chemotherapy with a next treatment on who presents the emergency department complaining of possible syncopal episode and being lowered to the ground by family members. Grandaughter states that she was walking when she stopped and did not respond to her granddaughter, was then lowered to the ground, began to snore, and when granddaughter got off the phone with EMS she woke up and was talking again. Pt states that she feels back to normal. Patient states that she has had similar episodes such as this recently and has been evaluated by the emergency department twice in the last couple weeks. Patient states that yesterday she actually fell and was evaluated at that time with an unremarkable workup. Patient states that she did not hit or injure any part of her body. She had another episode of lightheadedness without complete syncope. Patient states that she feels well at this time and back to baseline. She has been eating and drinking, but does have a decreased p.o. intake. She is still urinating normally and having normal bowel movements. No other concerns or complaints. Denies any headache, fever, neck pain, changes in vision/speech/hearing, URI, sore throat, chest pain, palpitations, cough, shortness of breath, wheeze, dyspnea, abdominal pain, nausea/vomiting/bernie rrhea, urinary retention, dysuria, hematuria, loss of control of bowel or bladder, numbness/tingling, saddle anesthesia, muscle paralysis, or rash. - Related Data Allergies/Adverse Reactions: cilostazol [From Pletal] Adverse Reaction (Intermediate, Verified 06/19/18 12:14) Dizziness Past Medical History - Social History Smoking Status: Current Every Day Smoker Family History: Other - Past Medical History Cardiac Medical History: Reports: Hx Heart Attack, Hx Hypercholesterolemia, Hx Hypertension Denies: Hx Coronary Artery Disease Pulmonary Medical History: Reports: Hx COPD, Hx Pneumonia - A BABY Denies: Hx Asthma, Hx Bronchitis Neurological Medical History: Denies: Hx Cerebrovascular Accident, Hx Seizures Renal/ Medical History: Denies: Hx Peritoneal Dialysis Musculoskeletal Medical History: Reports Hx Arthritis Past Surgical History: Reports: Hx Abdominal Surgery - barium study 10/18/11, Hx Breast Surgery - Left mastectomy, Hx Cardiac Surgery - carotid artery cleaned, Hx Carotid Endarterectomy - left- in approximately 2012, Hx Tubal Ligation - Immunizations Hx Diphtheria, Pertussis, Tetanus Vaccination: Yes Hx Pneumococcal Vaccination: 05/16/15 Review of Systems - Review of Systems -: Yes All other systems reviewed and negative Physical Exam - Vital signs Vitals: Resp Pulse Ox 16 96 06/19/18 11:33 06/19/18 11:33 - Notes Notes: PHYSICAL EXAMINATION: GENERAL: Well-appearing, well-nourished and in no acute distress. A&Ox4. Answers questions appropriately. HEAD: Atraumatic, normocephalic. Non-tender. EYES: Pupils equal round and reactive to light, extraocular movements intact, sclera anicteric, conjunctiva are normal. No nystagmus. vis hampton intact. ENT: EAC clear b/l. TM's intact b/l without erythema, fluid, or perforation. Nares patent and without discharge. oropharynx clear without exudates. No tonsilar hypertrophy or erythema. Moist mucous membranes. No sinus tenderness. NECK: Normal range of motion, supple without lymphadenopathy. No rigidity/meningismus. No midline tenderness. LUNGS: Breath sounds clear to auscultation bilaterally and equal. No wheezes rales or rhonchi. HEART: Regular rate and rhythm w. murmur noted. ABDOMEN: Soft, nontender, nondistended abdomen. No guarding, no rebound. Normal bowel sounds present. No CVA tenderness bilaterally. Musculoskeletal: Ext's b/l: FROM to passive/active. Strength 5+/5. No deficits noted. No bony tenderness of extremities. Extremities: No cyanosis, clubbing, or edema b/l. Peripheral pulses 2+. Capillary refill less than 2 seconds. NEUROLOGICAL: NIH 0. GCS 15. Cranial nerves grossly intact. Normal speech. Normal sensory, motor exams. Reflexes 2+ b/l. ELBA's negative. Pronator drift negative. Heel/castano, finger/nose wnl. PSYCH: Normal mood, normal affect. SKIN: Warm, Dry, normal turgor, no rashes or lesions noted. Course - Re-evaluation Re-evalutation: 06/19/18 12:[address] Tapia. We will obtain labs and give fluids. Pt is neurologically intact so we will be holding off on any CT scan as she just had 2 in the last two weeks with one 14 hours ago approx. 06/19/18 15:[address] Fisher who is well aware of the patient and her case. No imaging recommendation at this time. He recommends 24hr obs. Dr. Whitney is out of town and Dr. Rodriguez is covering. I called and spoke with him and he decl ined admission for syncopal episode. He states that she can f/u in Dr. Whitney's office tomorrow for recheck with the APC. Dr. Fisher made aware who is in agreement and will be seeing her this week as well. Patient is an afebrile, well-hydrated, 72-year-old female who presents to the emergency department with a possible syncopal episode who is returned to baseline. Vitals are acceptable without significant tachycardia, tachypnea, or hypoxia. PE is otherwise unremarkable for any focal neurological deficits. Patient is nontoxic-appearing and is tolerating p.o. without difficulty. Labs are unremarkable. Patient has been receiving fluids. No further labs or imaging warranted at this time. Low suspicion for any sepsis, acute glaucoma, temporal arteritis, meningitis, intracranial hemorrhage, ischemic stroke, or fracture at this time. Patient is aware that this condition can change from initial presentation and that she needs to monitor symptoms closely for any acute changes. Recheck with your PCM's office tomorrow. Keep appointment with oncology/hematology this week as well. Return to the ED with any other worsening/concerning symptoms as reviewed. Patient is in agreement. - Vital Signs Vital signs: Temp Pulse Resp BP Pulse Ox 97.7 F 20 126/57 H 96 06/19/18 12:00 06/19/18 14:04 06/19/18 14:04 06/19/18 14:04 - Laboratory Result Diagrams: 06/19/18 12:11 06/19/18 12:11 Laboratory results interpreted by me: 06/19/18 06/19/18 12:11 12:11 WBC 2.1 L RBC 3.35 L Hgb 10.5 L Hct 30.8 L RDW 19.0 H Band Neutrophils % 2 L Lymphocytes % (Manual) 46 H Abs Neuts (Manual) 1.1 L BUN 23 H Est GFR (Non-Af Amer) 55 L Glucose 120 H Discharge - Discharge Clinical Impression: Episode of syncope Qualifiers: Syncope type: unspecified Qualified Code(s): R55 - Syncope and collapse Condition: Stable Disposition: HOME, SELF-CARE Additional Instructions: Maintain adequate fluid and food intake Take home medications as directed Healthy diet Monitor blood pressure/heart rate daily and keep a log Monitor symptoms for any acute changes Recheck with your PCM in 3-5 days Consider a follow-up with cardiology Return to the ED with any worsening symptoms and/or development of fever, headache, chest pain, palpitations, syncope, shortness of breath, trouble breathing, abdominal pain, n/v/d, blood in stool/urine, loss of control of bowel/bladder, urinary retention, muscle weakness/paralysis, numbness/tingling, or other worsening symptoms that are concerning to you. Referrals: CHUY WHITNEY MD [Primary Care Provider] - Follow up tomorrow
[2018-06-19 12:27] LABS: HEMATOCRIT 30.8 % (36.0-47.0); HEMOGLOBIN 10.5 g/dL (12.0-15.5); MEAN CORPUSCULAR HEMOGLOBIN 31.3 pg (27.0-33.4); MEAN CORPUSCULAR VOLUME 92 fl (80-97); PLATELET COUNT 289 10^3/uL (150-450); RED BLOOD COUNT 3.35 10^6/uL (3.72-5.28); WHITE BLOOD COUNT 2.1 10^3/uL (4.0-10.5)
[2018-06-19] MEDS: NORMAL SALINE 1000 ML 1,000 ML IV PRN ×2 (12:38→14:04)
[2018-06-19 12:47] LABS: ALANINE AMINOTRANSFERASE 24 U/L (9-52); ALBUMIN 3.9 g/dL (3.5-5.0); ALKALINE PHOSPHATASE 55 U/L (38-126); ANION GAP 9 (5-19); ASPARTATE AMINO TRANSFERASE 19 U/L (14-36); BILIRUBIN,DIRECT 0.2 mg/dL (0.0-0.4); BILIRUBIN,TOTAL 0.5 mg/dL (0.2-1.3); BLOOD UREA NITROGEN 23 mg/dL (7-20); CALCIUM 8.9 mg/dL (8.4-10.2); CARBON DIOXIDE 23 mmol/L (22-30); CHLORIDE 106 mmol/L (98-107); GLUCOSE 120 mg/dL (75-110); POTASSIUM 4.7 mmol/L (3.6-5.0); SODIUM 138.2 mmol/L (137-145); TOTAL PROTEIN 6.7 g/dL (6.3-8.2)
[2018-06-19 13:15] LABS: ABSOLUTE MONOCYTES # (MANUAL) 0.1 10^3/uL (0.1-1.4); ABSOLUTE NEUTROPHILS# (MANUAL) 1.1 10^3/uL (1.7-8.2); ANISOCYTOSIS 2+; BAND NEUTROPHILS % (MANUAL) 2 % (3-5); BASOPHILS % (MANUAL) 0 % (0-2); EOSINOPHILS % (MANUAL) 0 % (0-6); HYPOCHROMASIA SLIGHT; LYMPHOCYTES % (MANUAL) 46 % (13-45); MONOCYTES % (MANUAL) 4 % (3-13); PLATELET COMMENT ADEQUATE; PLATELET LARGE PRESENT; POLYCHROMASIA 1+; SEGMENTED NEUTROPHILS % (MAN) 48 % (42-78); TOTAL CELLS COUNTED 100
[2018-06-19 14:22] LABS: APPEARANCE,URINE CLEAR; BILIRUBIN,URINE NEGATIVE (NEGATIVE); COLOR,URINE STRAW; GLUCOSE, URINE NEGATIVE (NEGATIVE); KETONES,URINE NEGATIVE (NEGATIVE); LEUKOCYTE ESTERASE,URINE NEGATIVE (NEGATIVE); NITRITE,URINE NEGATIVE (NEGATIVE); PROTEIN,URINE NEGATIVE (NEGATIVE); URINE SPECIFIC GRAVITY 1.005; UROBILINOGEN,URINE NEGATIVE mg/dL (<2.0)
[2018-06-19] MEDS ORDERED: KETOROLAC TROMETHAMINE INJ/PF 30 MG/1 ML SDV IV ONE (14:50)
[2018-06-19 15:51] VITALS: BP 131/59
--- NOTE | 2018-06-20 21:53 | EKG REPORT ---
SEVERITY:- ABNORMAL ECG - SINUS RHYTHM VENTRICULAR TRIGEMINY PROBABLE LEFT VENTRICULAR HYPERTROPHY : Confirmed by: Brad Arnold 20-Jun-2018 21:51:53
== END 2018-06-19 15:30 | disposition home or self-care (01) ==
LOC: ER 11:55
DX: R55 Syncope and collapse (principal); J44.9 Chronic obstructive pulmonary disease, unspecified; I10 Essential (primary) hypertension; C34.90 Malignant neoplasm of unspecified part of unspecified bronchus or lung; Z79.899 Other long term (current) drug therapy; I25.2 Old myocardial infarction; E78.00 Pure hypercholesterolemia, unspecified
CPT/HCPCS: 93005; 99283; 96361; 96374; 36415; 87086; 85025; 80053; 81001; 93010; J1885; J7030

== ENCOUNTER → 2018-09-22 | Outpatient (CLI) | payer BC, MEDICARE ==
--- NOTE | 2018-09-22 09:48 | RADIOLOGY REPORT (SQ) ---
EXAM DESCRIPTION: CT CHEST WITHOUT; CT ABD/PELVIS NO ORAL OR IV COMPLETED DATE/TIME: 09/22/2018 9:29 am REASON FOR STUDY: MALIGNANT NEOPLASM OF UPPER LOBE, RIGHT BRONCHUS OR LUNG C34.11 MALIGNANT NEOPLAS M OF UPPER LOBE, RIGHT BRONCHUS OR L COMPARISON: CT angio chest 06/17/2018 PET-CT 03/26/2018 CT chest 03/16/2018 CT abdomen pelvis 09/21/2015 TECHNIQUE: CT scan of the chest performed without intravenous contrast using helical scanning techni que. Images reviewed with lung, soft tissue and bone windows. Reconstructed coronal and sagittal MPR images reviewed. All images stored on PACS. CT scan of the abdomen and pelvis performed without intravenous contrast and withoutoral contrast usi ng helical scanning technique with dynamic intravenous contrast injection. Images reviewed with lung , soft tissue and bone windows. Reconstructed coronal and sagittal MPR images reviewed. All images stored on PACS. All CT scanners at this facility use dose modulation, iterative reconstruction, and/or weight based d osing when appropriate to reduce radiation dose to as low as reasonably achievable (ALARA). [facility]: Dose Right [facility]: CareDose [facility]: Dose Right [facility]: Teradose 4D [facility]: [employer] RADIATION DOSE: CT Rad equipment meets quality standard of care and radiation dose reduction techniq ues were employed. CTDIvol: 5.4 mGy. DLP: 375 mGy-cm. mGy. LIMITATIONS: No technical limitations. FINDINGS: CHEST: AXILLAE: No adenopathy. CHEST WALL: No masses. No subcutaneous air. LUNGS: At the right lung apex, a 4.5 x 3.4 cm spiculated mass is present (was 5.1 x 4.2 cm 06/17/2018, was 6 x 5.4 cm in size on PET-CT 03/26/2018) There are too numerous to count pulmonary nodules bilaterally, grossly stable. No pleural effusion. No pneumothorax. Airways are patent. PLEURA: No effusions. No calcifications. THYROID: No masses or significant asymmetry. HILAR AND MEDIASTINAL STRUCTURES: No identified masses or abnormal nodes. AORTA AND GREAT VESSELS: No aneurysm. HEART: No pericardial effusion. HARDWARE AND LIFELINES: Right-sided permanent central line tip superior vena cava BONES: No significant finding. OTHER: No other significant finding. ABDOMEN AND PELVIS: LIVER: Normal size. No masses. No dilated ducts. SPLEEN: Normal size. No focal lesions. PANCREAS: No masses. No significant calcifications. No adjacent inflammation or peripancreatic flui d collections. Pancreatic duct not dilated. GALLBLADDER: No identified stones by CT criteria. No inflammatory changes to suggest cholecystitis. ADRENAL GLANDS: No significant masses or asymmetry. RIGHT KIDNEY AND URETER: No solid masses. Assessment limited by lack of IV contrast. No significant calcifications. No hydronephrosis or hydroureter. LEFT KIDNEY AND URETER: No solid masses. Assessment limited by lack of IV contrast. No significant calcifications. No hydronephrosis or hydroureter. AORTA AND VESSELS: No aneurysm. RETROPERITONEUM: No retroperitoneal adenopathy, hemorrhage or masses. APPENDIX: Normal. LARGE AND SMALL BOWEL: No dilatation. No masses. No wall thickening. ABDOMINAL WALL: No hernia or masses. PERITONEAL CAVITY: No free air. No free fluid. No peritoneal implants or masses. PELVIS: No mass or free fluid. Normal bladder. Normal size female pelvic organs BONES: No significant or acute findings. OTHER: No other significant finding. IMPRESSION: Decrease in size of the right apical malignant lung mass. No CT evidence of metastatic disease to the abdomen or pelvis. TECHNICAL DOCUMENTATION: JOB ID: [id number] Quality ID # [id number]: Final reports with documentation of one or more dose reduction techniques (e.g., Au tomated exposure control, adjustment of the mA and/or kV according to patient size, use of iterative reconstruction technique) 2010 [employer]- All Rights Reserved Reading location - IP/workstation name: [email or web address]
== END ==
LOC: RAD 08:27
PROVIDERS: ATTEND Physician Assistant Medical
DX: C34.11 Malignant neoplasm of upper lobe, right bronchus or lung (principal)
CPT/HCPCS: 71250; 74176; 82565

== ENCOUNTER → 2018-12-20 | Outpatient (CLI) | payer BC, MEDICARE ==
--- NOTE | 2018-12-20 09:17 | RADIOLOGY REPORT (SQ) ---
EXAM DESCRIPTION: CT CHEST WITHOUT COMPLETED DATE/TIME: 12/20/2018 8:24 am REASON FOR STUDY: R C34.11 MALIGNANT NEOPLASM OF UPPER LOBE, RIGHT BRONCHUS OR L COMPARISON: 09/22/2018 TECHNIQUE: CT scan performed of the chest without intravenous contrast. Images reviewed with lung, soft tissue and bone windows. Reconstructed coronal and sagittal MPR images reviewed. All images st ored on PACS. All CT scanners at this facility use dose modulation, iterative reconstruction, and/or weight based d osing when appropriate to reduce radiation dose to as low as reasonably achievable (ALARA). [facility]: Dose Right [facility]: CareDose [facility]: Dose Right [facility]: Teradose 4D [facility]: [employer] RADIATION DOSE: mGy. LIMITATIONS: No technical limitations. FINDINGS: LUNGS AND PLEURA: There is been increase in the size of the spiculated right upper lobe ma ss measuring approximately 5.4 x 3.9 cm (series 6, image 24), previously documented at 4.5 x 3.4 cm. There are multiple additional subcentimeter pulmonary nodules throughout both lungs which appear diana ssly stable from prior dated 09/22/2018. No new airspace disease. No pleural effusion or pneumothora x. HILAR AND MEDIASTINAL STRUCTURES: Stable precarinal lymph node measuring 1 cm in short axis. No new mediastinal, hilar or axillary adenopathy. HEART AND VASCULAR STRUCTURES: Scattered aortic atherosclerosis without aneurysm. No significant car diac enlargement. Three-vessel coronary atherosclerosis. Trace pericardial effusion. UPPER ABDOMEN: See separate report of the CT of the abdomen. THYROID AND OTHER SOFT TISSUES: Unremarkable thyroid. Postsurgical changes from left mastectomy. Le ft axillary lymph node dissection. BONES: No significant finding. HARDWARE: None in the chest. OTHER: No other significant findings. IMPRESSION: 1. Increase in size of the spiculated right upper lobe mass now measuring approximately 5.4 x 3.9 cm, previously 4.5 x 3.4 cm. 2. Grossly stable additional bilateral subcentimeter pulmonary nodule. 3. No other evidence of acute intrathoracic process. TECHNICAL DOCUMENTATION: JOB ID: [id number] Quality ID # [id number]: Final reports with documentation of one or more dose reduction techniques (e.g., Au tomated exposure control, adjustment of the mA and/or kV according to patient size, use of iterative reconstruction technique) 2010 [employer]- All Rights Reserved Reading location - IP/workstation name: [email or web address]
--- NOTE | 2018-12-20 09:31 | RADIOLOGY REPORT (SQ) ---
EXAM DESCRIPTION: CT ABD/PELVIS NO ORAL OR IV COMPLETED DATE/TIME: 12/20/2018 8:22 am REASON FOR STUDY: C34.11 MALIGNANT NEOPLASM OF UPPER LOBE, RIGHT BRONCHUS OR LUNG C34.11 MALIGNANT NEOPLASM OF UPPER LOBE, RIGHT BRONCHUS OR L COMPARISON: 09/22/2018 TECHNIQUE: CT scan of the abdomen and pelvis performed without intravenous or oral contrast. Images reviewed with lung, soft tissue, and bone windows. Reconstructed coronal and sagittal MPR images revi ewed. All images stored on PACS. All CT scanners at this facility use dose modulation, iterative reconstruction, and/or weight based d osing when appropriate to reduce radiation dose to as low as reasonably achievable (ALARA). [facility]: Dose Right [facility]: CareDose [facility]: Dose Right [facility]: Teradose 4D [facility]: [employer] RADIATION DOSE: CT Rad equipment meets quality standard of care and radiation dose reduction techniq ues were employed. CTDIvol: 4.9 - 6.4 mGy. DLP: 508 mGy-cm.mGy. LIMITATIONS: None. FINDINGS: LOWER CHEST: No significant findings. No nodules or infiltrates. NON-CONTRASTED LIVER, SPLEEN, ADRENALS: Evaluation limited by lack of IV contrast. No identified sign ificant masses. PANCREAS: No masses. No peripancreatic inflammatory changes. GALLBLADDER: No identified stones by CT criteria. No inflammatory changes to suggest cholecystitis. RIGHT KIDNEY AND URETER: No suspicious masses. Assessment limited by lack of IV contrast. No signif icant calcifications. No hydronephrosis or hydroureter. LEFT KIDNEY AND URETER: No suspicious masses. Assessment limited by lack of IV contrast. No signifi cant calcifications. No hydronephrosis or hydroureter. AORTA AND RETROPERITONEUM: Aortoiliac atherosclerosis with mild focal dilation of the infrarenal abdo matt aorta measuring up to 2.5 cm, stable. No retroperitoneal adenopathy or hemorrhage. BOWEL AND PERITONEAL CAVITY: No obvious masses or inflammatory changes. No free fluid. APPENDIX: Normal. PELVIS, BLADDER, AND ABDOMINAL WALL:Decompressed urinary bladder. No pelvic mass or adenopathy. BONES: No acute bony abnormality. No suspicious osseous lesions. Lower lumbar facet arthropathy. OTHER: No other significant finding. IMPRESSION: 1. No evidence of metastatic disease within the abdomen or pelvis on this noncontrast e xam. 2. No evidence of acute intra-abdominal/pelvic process. COMMENT: Quality ID # 436: Final reports with documentation of one or more dose reduction techniques (e.g., Automated exposure control, adjustment of the mA and/or kV according to patient size, use of iterative reconstruction technique) TECHNICAL DOCUMENTATION: JOB ID: [id number] [employer]- All Rights Reserved Reading location - IP/workstation name: [email or web address]
== END ==
LOC: RAD 08:03
PROVIDERS: ATTEND Physician Assistant Medical
DX: C34.11 Malignant neoplasm of upper lobe, right bronchus or lung (principal)
CPT/HCPCS: 71250; 74176

== ENCOUNTER 2019-03-03 17:01 | Emergency (ER) | payer BC, MEDICARE ==
--- NOTE | 2019-03-03 17:43 | ER Document Report ---
ED Medical Screen (RME) - General Chief Complaint: Flank Pain Stated Complaint: LEFT SIDE FLANK PAIN Time Seen by Provider: 03/03/19 17:39 Primary Care Provider: NATHALIE NAZARIO PA-C [Primary Care Provider] - Follow up as needed Mode of Arrival: Wheelchair Information source: Patient Notes: 73-year-old female presented to ED for complaint of left flank pain. She states she had chemo and a flu shot on Tuesday. She does have a history of lung cancer with a mastectomy to the left with right lung cancer. She states the breast cancer was 27 years ago the lung cancer is noted. Patient states she has not had any blood in the urine has not had any nausea or vomiting and does not have a history of kidney stone. Patient states the pain started yesterday while she was laying in the bed she has not lifted anything or done anything to cause this pain. states that she did have the shakes this past Tuesday. I have greeted and performed a rapid initial assessment of this patient. A comprehensive ED assessment and evaluation of the patient, analysis of test results and completion of medical decision making process will be conducted by an additional ED providers. TRAVEL OUTSIDE OF THE [place] IN LAST 30 DAYS: No - Related Data Allergies/Adverse Reactions: cilostazol [From Pletal] Adverse Reaction (Intermediate, Verified 06/19/18 12:14) Dizziness Past Medical History - Past Medical History Cardiac Medical History: Reports: Hx Heart Attack, Hx Hypercholesterolemia, Hx Hypertension Denies: Hx Coronary Artery Disease Pulmonary Medical History: Reports: Hx COPD, Hx Pneumonia - A BABY Denies: Hx Asthma, Hx Bronchitis Neurological Medical History: Denies: Hx Cerebrovascular Accident, Hx Seizures Renal/ Medical History: Denies: Hx Peritoneal Dialysis Musculoskeltal Medical History: Reports Hx Arthritis Past Surgical History: Reports: Hx Abdominal Surgery - barium study 10/18/11, Hx Breast Surgery - Left mastectomy, Hx Cardiac Surgery - carotid artery cleaned, Hx Carotid Endarterectomy - left- in approximately 2012, Hx Tubal Ligation - Immunizations Hx Diphtheria, Pertussis, Tetanus Vaccination: Yes Doctor's Discharge - Discharge Referrals: NATHALIE NAZARIO PA-C [Primary Care Provider] - Follow up as needed
[2019-03-03 18:25] LABS: ABSOLUTE EOSINOPHILS # (AUTO) 0.1 10^3/uL (0.0-0.6); ABSOLUTE LYMPHOCYTES (AUTO) 2.3 10^3/uL (0.5-4.7); ABSOLUTE MONOCYTES (AUTO) 1.8 10^3/uL (0.1-1.4); ABSOLUTE NEUT (AUTO) 15.6 10^3/uL (1.7-8.2); BASOPHILS % (AUTO) 0.2 % (0-2); EOSINOPHILS % (AUTO) 0.4 % (0-6); HEMATOCRIT 36.9 % (36.0-47.0); HEMOGLOBIN 12.3 g/dL (12.0-15.5); LYMPHOCYTES % (AUTO) 11.5 % (13-45); MEAN CORPUSCULAR HEMOGLOBIN 31.5 pg (27.0-33.4); MEAN CORPUSCULAR HGB CONC 33.4 g/dL (32.0-36.0); MEAN CORPUSCULAR VOLUME 95 fl (80-97); MONOCYTES % (AUTO) 9.2 % (3-13); PLATELET COUNT 370 10^3/uL (150-450); RED CELL DISTRIBUTION WIDTH 13.5 % (11.5-14.0); SEGMENTED NEUTROPHILS % (AUTO) 78.7 % (42-78); TOTAL CELLS COUNTED % (AUTO) 100 %; WHITE BLOOD COUNT 19.8 10^3/uL (4.0-10.5)
[2019-03-03 18:35] LABS: APPEARANCE,URINE SLIGHTLY-CLOUDY; BILIRUBIN,URINE NEGATIVE (NEGATIVE); COLOR,URINE YELLOW; GLUCOSE, URINE NEGATIVE (NEGATIVE); KETONES,URINE NEGATIVE (NEGATIVE); PROTEIN,URINE 30 mg/dL (NEGATIVE); URINE SPECIFIC GRAVITY 1.018; UROBILINOGEN,URINE NEGATIVE mg/dL (<2.0)
--- NOTE | 2019-03-03 18:41 | RADIOLOGY REPORT (SQ) ---
EXAM DESCRIPTION: CT ABD/PELVIS NO ORAL OR IV COMPLETED DATE/TIME: 03/03/2019 6:24 pm REASON FOR STUDY: left flank pain COMPARISON: 12/20/2018 TECHNIQUE: CT scan of the abdomen and pelvis performed without intravenous or oral contrast. Images reviewed with lung, soft tissue, and bone windows. Reconstructed coronal and sagittal MPR images revi ewed. All images stored on PACS. All CT scanners at this facility use dose modulation, iterative reconstruction, and/or weight based d osing when appropriate to reduce radiation dose to as low as reasonably achievable (ALARA). [facility]: Dose Right [facility]: CareDose [facility]: Dose Right [facility]: Teradose 4D [facility]: Smart [employer] RADIATION DOSE: CT Rad equipment meets quality standard of care and radiation dose reduction techniq ues were employed. CTDIvol: 6.7 mGy. DLP: 355 mGy-cm.mGy. LIMITATIONS: None. FINDINGS: LOWER CHEST: New mass within the left lower lobe measuring on the order of 3.9 x 2.8 x 6.5 cm. NON-CONTRASTED LIVER, SPLEEN, ADRENALS: Evaluation limited by lack of IV contrast. No identified sign ificant masses. PANCREAS: No masses. No peripancreatic inflammatory changes. GALLBLADDER: No identified stones by CT criteria. No inflammatory changes to suggest cholecystitis. RIGHT KIDNEY AND URETER: No suspicious masses. Assessment limited by lack of IV contrast. No signif icant calcifications. No hydronephrosis or hydroureter. LEFT KIDNEY AND URETER: No suspicious masses. Assessment limited by lack of IV contrast. No signifi cant calcifications. No hydronephrosis or hydroureter. AORTA AND RETROPERITONEUM: Focal ectasia of the infrarenal abdominal aorta; this is not meet imaging characteristics for a diagnosis as an aneurysm. BOWEL AND PERITONEAL CAVITY: No obvious masses or inflammatory changes. No free fluid. APPENDIX: Normal. PELVIS, BLADDER, AND ABDOMINAL WALL:No abnormal masses. No free fluid. Bladder normal. BONES: No significant findings. OTHER: No other significant finding. IMPRESSION: Patient with known right upper lobe spiculated mass demonstrating increasing size on rec ent imaging. New left lower lobe mass may be related the patient's presenting symptoms. No acute in tra-abdominal findings or subdiaphragmatic metastatic disease. COMMENT: Quality ID # 436: Final reports with documentation of one or more dose reduction techniques (e.g., Automated exposure control, adjustment of the mA and/or kV according to patient size, use of iterative reconstruction technique) TECHNICAL DOCUMENTATION: JOB ID: [id number] [employer]- All Rights Reserved Reading location - IP/workstation name: [email or web address]
[2019-03-03 21:12] LABS: ALBUMIN 3.6 g/dL (3.5-5.0); ALKALINE PHOSPHATASE 149 U/L (38-126); ANION GAP 10 (5-19); ASPARTATE AMINO TRANSFERASE 25 U/L (14-36); BILIRUBIN,DIRECT 0.3 mg/dL (0.0-0.4); BILIRUBIN,TOTAL 0.6 mg/dL (0.2-1.3); BLOOD UREA NITROGEN 42 mg/dL (7-20); CARBON DIOXIDE 24 mmol/L (22-30); CHLORIDE 103 mmol/L (98-107); CREATINE KINASE 47 U/L (30-135); GLUCOSE 106 mg/dL (75-110); POTASSIUM 4.4 mmol/L (3.6-5.0); TOTAL PROTEIN 7.2 g/dL (6.3-8.2)
--- NOTE | 2019-03-03 21:36 | ER Document Report ---
ED General - General Chief Complaint: Flank Pain Stated Complaint: LEFT SIDE FLANK PAIN Time Seen by Provider: 03/03/19 17:39 Primary Care Provider: NATHALIE NAZARIO PA-C [ALLIED HEALTH PROFESSIONAL] - Follow up as needed Mode of Arrival: Wheelchair TRAVEL OUTSIDE OF THE [place] IN LAST 30 DAYS: No - HPI Notes: This is a 73-year-old female who presents to the emergency department complaining of left flank pain. Review of the CT of the abdomen pelvis without contrast performed t at 1824 hrs. is significant for a new mass within the left lower lobe measuring on the order of 3.9 x 2.[address] impression is significant for the following: Patient with known right upper lobe spiculated mass demonstrating increase in size on recent imaging. New left lower lobe mass may be related to the patient's presenting symptoms. No acute intra-abdominal findings or sub- diaphragmatic metastatic disease." CT findings dictated by Dr. Bunn at 1824 hours on 03/03/19 Patient does have a history of lung CA as well as history of status post mastectomy of the left breast as well as known right lung carcinoma. Patient denies prior history of kidney stones, history of hematuria, nausea vomiting. Patient states the pain started yesterday while she was lying in bed. Patient denies any recent exertion or heavy lifting that may have caused onset of her symptoms. Initial vital signs: Temp is 97.8 Fahrenheit, pulse rate 91, blood pressure 180/59, respirations 16, O2 sats 92% on room air. Patient rates her pain as a 3 out of 0-5 scale. Patient is in the room with her son at the bedside. Results of CAT scan and laboratory findings discussed with patient and patient's son. They both stated that they were not particularly surprised to find that she had presence of carcinoma on the left side of her chest. Patient states that she is currently on Keytruda for treatment of her "cigarette kind of lung cancer." Patient's son states the reason they came to the emergency department today was because they [place] and the patient became fatigued more easily than she usually does. Patient states she is on Plavix and another "blood thinner with aspirin in it." Patient and patient's son expressed their josie in God and and the patient states that she is "doing everything (she) can" in terms of taking her medications every day, following her oncologist's advice and prescriptions as written as well as trying to make the most amount of "the time I have left here on earth." Possibility of occult pulmonary embolism discussed with patient and patient's son. Reasons for noncontrast chest CT also discussed with patient and patient's son (e.g., renal insufficiency, risks of iv contrast, pt's renal insufficiency). Patient and patient's son expressed understanding of risks and reasons for not repeating CT. Patient expressed that she was comfortable with not having a repeat chest CT performed and also comfortable with the fact that she is already on anticoagulation therapy in case she does have an occult PE. Patient expressed to this MD that she again just wants to live her life to the fullest and is following the advice of her physicians. Differential diagnosis: Renal stone, UTI, pyelonephritis, lung CA with metastases, pulmonary embolism - Related Data Allergies/Adverse Reactions: cilostazol [From Pletal] Adverse Reaction (Intermediate, Verified 03/03/19 17: 40) Dizziness Home Medications: aggrenox. zofran. fish oil. plavix. losartan. norco. femara. atorvastatin Past Medical History - General Information source: Patient - Social History Smoking Status: Former Smoker Chew tobacco use (# tins/day): No Frequency of alcohol use: None Drug Abuse: None Family History: Other Patient has suicidal ideation: No Patient has homicidal ideation: No - Past Medical History Cardiac Medical History: Reports: Hx Heart Attack, Hx Hypercholesterolemia, Hx Hypertension Denies: Hx Coronary Artery Disease Pulmonary Medical History: Reports: Hx COPD, Hx Pneumonia - A BABY Denies: Hx Asthma, Hx Bronchitis Neurological Medical History: Denies: Hx Cerebrovascular Accident, Hx Seizures Renal/ Medical History: Denies: Hx Peritoneal Dialysis Musculoskeletal Medical History: Reports Hx Arthritis Past Surgical History: Reports: Hx Abdominal Surgery - barium study 10/18/11, Hx Breast Surgery - Left mastectomy, Hx Cardiac Surgery - carotid artery cleaned, Hx Carotid Endarterectomy - left- in approximately 2012, Hx Tubal Ligation - Immunizations Hx Diphtheria, Pertussis, Tetanus Vaccination: Yes Hx Pneumococcal Vaccination: 05/16/15 Review of Systems - Review of Systems Constitutional: Weakness EENT: No symptoms reported Cardiovascular: No symptoms reported Respiratory: Short of breath Gastrointestinal: No symptoms reported Genitourinary: Flank pain Female Genitourinary: No symptoms reported Musculoskeletal: No symptoms reported Skin: No symptoms reported Hematologic/Lymphatic: No symptoms reported Neurological/Psychological: No symptoms reported -: Yes All other systems reviewed and negative Physical Exam - Vital signs Vitals: Temp Pulse Resp BP Pulse Ox 97.8 F 91 16 180/59 H 92 03/03/19 17:45 03/03/19 17:45 03/03/19 17:45 03/03/19 17:45 03/03/19 17:45 - Notes Notes: PHYSICAL EXAMINATION: GENERAL: Well-appearing, well-nourished and in no acute distress. HEAD: Atraumatic, normocephalic. EYES: Pupils equal round and reactive to light, extraocular movements intact, sclera anicteric, conjunctiva are normal. ENT: nares patent, oropharynx clear without exudates. Moist mucous membranes. NECK: Normal range of motion, supple without lymphadenopathy LUNGS: Patient becomes slightly tachypneic when she moves around in bed and has audible wheezes. However, when she does not exert herself she quickly becomes less tachypneic and states that she "feels like herself" when she does not over exert herself. HEART: Patient is tachycardic, holosystolic murmur is noted left sternal border, second intercostal space. ABDOMEN: Soft, nontender, normoactive bowel sounds. No guarding, no rebound. No masses appreciated. EXTREMITIES: Normal range of motion, no pitting or edema. No cyanosis. NEUROLOGICAL: No focal neurological deficits. Moves all extremities spontaneously and on command. PSYCH: Normal mood, normal affect. SKIN: Warm, Dry, normal turgor, no rashes or lesions noted. Course - Re-evaluation Re-evalutation: 03/03/19 23:03 Patient is sitting up in bed in no acute distress. Patient is without complaints. 03/03/19 23:13 Patient is receiving IV fluids, Dilaudid, Zofran. Medical decision making: Patient is compliant with her medications and is undergoing chemotherapy with Keytruda for lung carcinoma with a poor prognosis secondary to long-term tobacco abuse. Patient is quite realistic in terms of what her current prognosis is in terms of morbidity and mortality secondary to lung carcinoma of this type. Patient strongly expresses her josie in God and that "He is in charge." The most appropriate plan as I see it at this point is to hydrate the patient with half liter of fluids since she is reportedly taking only about 500 cc when she is been instructed to take and thousand cc per day by her oncologist. Patient expressed hesitation about taking the pain medication she was prescribed because she is worried about it being "habit-forming." This MD tried to explain to the patient that given her particular unfortunate circumstances, that the use of opioid medication and the potential for abuse is not particularly relevant. This MD encourage the patient to continue to enjoy her quality of life as best she could at her own pace and follow-up with her doctors as scheduled and take her medications as directed patient and patient's son understand and expressed understanding of this discussion, prognosis, diagnosis, plan upon discharge. Impression and plan: Diagnosis #1: Metastatic lung CA diagnosis #2 renal insufficiency diagnosis #3 d ehydration Plan: Discharged with instructions about opioid pain medications and adequate hydration as well as instruction to follow-up with her oncologist and 2 days. Patient and patient's son encouraged to call 911 and return to the ER at any time if either person has concerns about the patient's state of health declining or dramatically worsening. - Vital Signs Vital signs: Temp Pulse Resp BP Pulse Ox 97.8 F 91 16 180/59 H 92 03/03/19 17:45 03/03/19 17:45 03/03/19 17:45 03/03/19 17:45 03/03/19 17:45 - Laboratory Result Diagrams: 03/03/19 18:04 03/03/19 20:37 Laboratory results interpreted by me: 03/03/19 03/03/19 03/03/19 18:04 18:04 20:37 WBC 19.8 H Lymph % (Auto) 11.5 L Absolute Neuts (auto) 15.6 H Absolute Monos (auto) 1.8 H Seg Neutrophils % 78.7 H BUN 42 H Creatinine 1.94 H Est GFR ( Amer) 30 L Est GFR (MDRD) Non-Af 25 L Alkaline Phosphatase 149 H Urine Protein 30 H Urine Blood SMALL H Discharge - Discharge Clinical Impression: Metastatic lung carcinoma, Dehydration, Renal insufficiency Condition: Fair Disposition: HOME, SELF-CARE Instructions: Dehydration ([facility]) Additional Instructions: HOME CARE INSTRUCTIONS & INFORMATION: Thank you for choosing us for your medical needs. We hope you're satisfied with the care you received. After you leave, you must properly care for your problem and, at the same time, observe its progress. Any condition can change. Some illnesses can change rapidly over hours or days. If your condition worsens, return to the Emergency Department or see your physician promptly. ABOUT YOUR X-RAYS AND EKG'S: If you had an EKG or X-rays taken, they have been read by the Emergency Physician. The X-rays and EKG's will also be read by a Radiologist or Field Operations Manager within 24 hours. If discrepancies are noted, you will be notified by telephone. Please be certain the ED has a correct telephone number & address where you can be reached. Also, realize that some fractures or abnormalities do not show up on initial X-rays. If your symptoms continue, see your physician. ABOUT YOUR LABORATORY TEST: If you had laboratory tests, the results have been reviewed by the Emergency Physician. Some test results (for example cultures) may not be available for several days. You will be contacted if any test result shows you need additional treatment. Please be certain the ED has a correct telephone number and address where you can be reached. ABOUT YOUR MEDICATIONS: You will receive instructions on how to take your medicine on the prescription label you receive. Additional information may be provided by the Pharmacy. If you have questions afterwards, call the ED for clarification or further instructions. Some prescribed medications may cause drowsiness. Do not perform tasks such as driving a car or operating machinery without consulting your Pharmacist. If you feel you need a refill of pain medication, your condition will need re-evaluation. Please do not call for a refill of any medication. ABOUT YOUR SIGNATURE: Signature of this document acknowledges to followin. Understanding that you received emergency treatment and that you may be released before al medical problems are known or treated. Please be certain the ED has a correct phone number & address where you can be reached. 2. Acknowledgement that you will arrange for follow-up care as recommended. 3. Authorization for the Emergency Physician to provide information to your follow-up Physician in order to maximize your care. AT ANY TIME, IF YOUR SYMPTOMS CHANGE SIGNIFICANTLY OR WORSEN OR YOU DEVELOP NEW SYMPTOMS, RETURN TO THE EMERGENCY DEPARTMENT IMMEDIATELY FOR RE-EVALUATION. OUR GOAL IS TO PROVIDE EXCELLENT MEDICAL CARE! WE HOPE THAT WE HAVE MET YOUR EXPECTATIONS DURING YOUR EMERGENCY DEPARTMENT VISIT AND THAT YOU FEEL YOU HAVE RECEIVED EXCELLENT CARE! Return to the Emergency Department without delay if any worse. Referrals: NATHALIE NAZARIO PA-C [ALLIED HEALTH PROFESSIONAL] - Follow up as needed JAMESON GONZALEZ MD [Primary Care Provider] - 03/05/19 (Call your doctor to let him know you were seen in the emergency department today and that you are calling to arrange a follow-up appointment.)
[2019-03-03] MEDS ORDERED: HYDROMORPHONE HCL INJ/PF 2 MG/ML AMPULE IV ONE (22:22)
[2019-03-03] MEDS ORDERED: ONDANSETRON HCL INJ/PF 4 MG/2 ML SDV IV ONE (22:22)
[2019-03-03] MEDS ORDERED: NORMAL SALINE 500 ML IV ONE (22:25)
[2019-03-04 01:47] VITALS: BP 141/98
== END 2019-03-04 01:47 | disposition home or self-care (01) ==
LOC: ER 17:01
DX: C34.90 Malignant neoplasm of unspecified part of unspecified bronchus or lung (principal); N28.9 Disorder of kidney and ureter, unspecified; E86.0 Dehydration; R10.9 Unspecified abdominal pain; R53.83 Other fatigue; R91.8 Other nonspecific abnormal finding of lung field; Z85.118 Personal history of other malignant neoplasm of bronchus and lung; Z90.12 Acquired absence of left breast and nipple; Z79.02 Long term (current) use of antithrombotics/antiplatelets; Z79.899 Other long term (current) drug therapy; Z79.01 Long term (current) use of anticoagulants; Z87.891 Personal history of nicotine dependence
CPT/HCPCS: 99284; 96361; 96374; 96375; 36415; 82553; 82550; 85025; 80053; 81001; 74176; J1170; J2405; J7040

== ENCOUNTER → 2019-03-12 | Outpatient (CLI) | payer BC, MEDICARE ==
--- NOTE | 2019-03-12 08:40 | WOMENS IMAGING REPORT ---
EXAM DESCRIPTION: BONE DENSITY HIP/SPINE COMPLETED DATE/TIME: 03/12/2019 7:58 am REASON FOR STUDY: M81.0 AGE-RELATED OSTEOPOROSIS WITHOUT CURRENT PATHOLOGICAL FRACTURE C34.11 MALIG NANT NEOPLASM OF UPPER LOBE, RIGHT BRONCHUS OR L M81.0 AGE-RELATED OSTEOPOROSIS W/O CURRENT PATHOLOG ICAL FRA COMPARISON: 03/01/2017. TECHNIQUE: Dual-Energy X-ray Absorptiometry (DEXA) of the AP Spine and Hip. LIMITATIONS: None. FINDINGS: LUMBAR SPINE: The bone mineral density (BMD) measured from L1-L4 in the AP projection correlates with a T-score of -1.9, which is osteopenia as defined by the World Health Organization. BMD Change vs Baseline: 2.5% increase. HIP: The bone mineral density (BMD) measured in the left femoral neck correlates with a T-score of -2.4, w hich is osteopenia as defined by the World Health Organization. BMD Change vs Baseline: 9.6% increase. 10 year Fracture Risk Assessment: Major Osteoporotic Fracture: 16% without prior fracture and 23% with prior fracture. Hip Fracture: 4.6% without prior fracture and 6.5% with prior fracture. IMPRESSION: 1. LUMBAR SPINE WHO CLASSIFICATION: OSTEOPENIA. 2. HIP WHO CLASSIFICATION: OSTEOPENIA. OVERALL ASSESSMENT: WHO CLASSIFICATION: OSTEOPENIA. COMMENT: The World Health Organization defines low BMD as follows: T-score: Normal: Greater than -1.0 Osteopenia: Between -1.0 and -2.5 Osteoporosis: Less than -2.5 without fractures Established osteoporosis: Less than -2.5 with fractures In general, you may wish to consider: Diagnosis Treatment Follow-up DEXA Normal BMD Prevention 2-3 years Osteopenia Prevention/Therapy 1-2 years Osteoporosis Therapy Yearly TECHNICAL DOCUMENTATION: JOB ID: [id number] [employer]- All Rights Reserved Reading location - IP/workstation name: [email or web address]
== END ==
LOC: RAD 07:20
PROVIDERS: ATTEND Nurse Practitioner Family
DX: M81.0 Age-related osteoporosis without current pathological fracture (principal)
CPT/HCPCS: 77080

== ENCOUNTER → 2019-03-25 | Outpatient (CLI) | payer BC, MEDICARE ==
--- NOTE | 2019-03-26 09:26 | RADIOLOGY REPORT (SQ) ---
EXAM DESCRIPTION: PET CT SKULL/THIGH COMPLETED DATE/TIME: 03/25/2019 8:47 pm REASON FOR STUDY: (C34.11)MALIGNANT NEOPLASM OF UPPER LOBE, RIGHT BRONCHUS OR LUNG C34.11 MALIGNANT NEOPLASM OF UPPER LOBE, RIGHT BRONCHUS OR L COMPARISON: PET scan dated 03/26/2018. CT scans dated 03/03/2019, 12/20/2018, and 09/22/2018. RADIONUCLIDE AND DOSE: 10 mCi F18 FDG The route of agent administration: Intravenous FASTING BLOOD SUGAR: 88 mg/dl CONTRAST TYPE AND DOSE: No CT contrast given. TECHNIQUE: Blood glucose level was verified. Above dose of FDG was injected intravenously. 2-D seg mented attenuation correction images were obtained from the base of the skull to the midthighs. Nonc ontrast CT images were obtained for attenuation correction and fusion with emission images. CT image s were performed without oral or intravenous contrast and are not sensitive for parenchymal lesions. A series of overlapping emission PET images were obtained. Images reviewed and manipulated at indep [employer] work station by the radiologist. Images stored on PACS. LIMITATIONS: None. FINDINGS: HEAD AND NECK: No areas of abnormal metabolic activity in the soft tissues of the head and neck. CHEST: The recently seen left lower lobe density has decreased in size. Current measurement is 1.5 x 2.5 cm with previous measurement 4 x 6.5 cm. Mean SUV 3.22. The spiculated mass in the right upper lobe measures 4.1 by 4.9 cm (axial series 3, image 56). Previous measurement 3.9 x 5.4 cm. Mean LAUREN V 28.53. No other areas of abnormal metabolic activity in the chest. ABDOMEN AND PELVIS: There is a small focal nodule in the right adrenal gland which measures 8 mm (axi al series 3, image 124). Mean SUV 3.89. There is increased activity associated with the inferior ri ght lobe of the liver. However, configuration suggests that this is actually activity in the hepatic flexure and proximal transverse colon and that there is misregistration between the CT images and th e PET images due to patient motion or respiration. No focal abnormality on CT images. No other area s of abnormal metabolic activity in the abdomen or pelvis. Expected physiologic activity is present in the genitourinary system and bowel. PROXIMAL LOWER EXTREMITIES: No areas of abnormal metabolic activity in the soft tissues of the lower extremities. BONES: No abnormal metabolic activity in the visualized skeleton. ADDITIONAL CT FINDINGS: No additional significant findings on the noncontrast CT images. OTHER: Background blood pool activity mean SUV 1.93. Background liver activity mean SUV 2.78. No ot her significant findings. IMPRESSION: 1. THE RECENTLY SEEN LEFT LOWER LOBE LUNG DENSITY HAS DECREASED IN SIZE. MEAN SUV 3.22. THIS IS MOS T LIKELY DUE TO INFLAMMATION OR INFECTION AND MALIGNANT PROCESS WOULD BE LESS LIKELY. 2. SPICULATED MASS IN THE RIGHT UPPER LOBE MAY BE SLIGHTLY SMALLER BUT OTHERWISE UNCHANGED ON CT. MA RKEDLY INCREASED ACTIVITY CONSISTENT WITH ACTIVE DISEASE. 3. SMALL 8 MM NODULE IN THE RIGHT ADRENAL GLAND WITH INCREASED ACTIVITY, NOT PRESENT ON PREVIOUS PET SCAN, CONCERNING FOR AN ADRENAL METASTASIS. 4. ACTIVITY ASSOCIATED WITH THE LOWER RIGHT LOBE OF THE LIVER APPEARS TO BE ARTIFACTUAL DESCRIBED ABOVE. NO ABNORMAL LESION ON CT IMAGING. TECHNICAL DOCUMENTATION: JOB ID: [id number] [employer]- All Rights Reserved Reading location - IP/workstation name: [email or web address]
== END ==
LOC: RAD 15:51
PROVIDERS: ATTEND Internal Medicine
DX: C34.11 Malignant neoplasm of upper lobe, right bronchus or lung (principal)
CPT/HCPCS: 78815; A9552

== ENCOUNTER → 2019-06-20 | Outpatient (CLI) | payer BC, MEDICARE ==
--- NOTE | 2019-06-20 13:35 | RADIOLOGY REPORT (SQ) ---
EXAM DESCRIPTION: CT CHEST WITHOUT COMPLETED DATE/TIME: 06/20/2019 8:45 am REASON FOR STUDY: C34.11 MALIGNANT NEOPLASM OF UPPER LOBE, RIGHT BRONCHUS OR LUNG C34.11 MALIGNANT NEOPLASM OF UPPER LOBE, RIGHT BRONCHUS OR L COMPARISON: 12/20/2018 TECHNIQUE: CT scan performed of the chest without intravenous contrast. Images reviewed with lung, soft tissue and bone windows. Reconstructed coronal and sagittal MPR images reviewed. All images st ored on PACS. All CT scanners at this facility use dose modulation, iterative reconstruction, and/or weight based d osing when appropriate to reduce radiation dose to as low as reasonably achievable (ALARA). [facility]: Dose Right [facility]: CareDose [facility]: Dose Right [facility]: Teradose 4D [facility]: [employer] RADIATION DOSE: mGy. LIMITATIONS: No technical limitations. FINDINGS: LUNGS AND PLEURA: Right upper lobe lung mass now measures 46.4 x 57.3 X 46.4 mm, significa nt enlargement. Additional small nodules in each lung that appear relatively stable. HILAR AND MEDIASTINAL STRUCTURES: Mild mediastinal adenopathy. There is peritracheal node measuring 14.8 mm and a precarinal node measuring 10.6 mm in short axis. These are slightly more prominent. HEART AND VASCULAR STRUCTURES: No aneurysm. No pericardial effusion. UPPER ABDOMEN: There is a 20.8 mm right adrenal nodule that is new. THYROID AND OTHER SOFT TISSUES: No masses. No adenopathy. BONES: No significant finding. HARDWARE: None in the chest. OTHER: No other significant findings. IMPRESSION: Increasing disease in the chest. The primary lung mass now measures 46.4 x 57.3 x 46.4 mm. There is slight increase in mediastinal adenopathy. There is a new 20.8 mm right adrenal nodule . TECHNICAL DOCUMENTATION: JOB ID: [id number] Quality ID # [id number]: Final reports with documentation of one or more dose reduction techniques (e.g., Au tomated exposure control, adjustment of the mA and/or kV according to patient size, use of iterative reconstruction technique) 2010 [employer]- All Rights Reserved Reading location - IP/workstation name: [email or web address]
--- NOTE | 2019-06-20 13:45 | RADIOLOGY REPORT (SQ) ---
EXAM DESCRIPTION: CT ABD/PELVIS NO ORAL OR IV COMPLETED DATE/TIME: 06/20/2019 8:45 am REASON FOR STUDY: C34.11 MALIGNANT NEOPLASM OF UPPER LOBE, RIGHT BRONCHUS OR LUNG C34.11 MALIGNANT NEOPLASM OF UPPER LOBE, RIGHT BRONCHUS OR L COMPARISON: 03/03/2019 TECHNIQUE: CT scan of the abdomen and pelvis performed without intravenous or oral contrast. Images reviewed with lung, soft tissue, and bone windows. Reconstructed coronal and sagittal MPR images revi ewed. All images stored on PACS. All CT scanners at this facility use dose modulation, iterative reconstruction, and/or weight based d osing when appropriate to reduce radiation dose to as low as reasonably achievable (ALARA). [facility]: Dose Right [facility]: CareDose [facility]: Dose Right [facility]: Teradose 4D [facility]: [employer] RADIATION DOSE: CT Rad equipment meets quality standard of care and radiation dose reduction techniq ues were employed. CTDIvol: 5.7 - 6.8 mGy. DLP: 563 mGy-cm.mGy. LIMITATIONS: None. FINDINGS: LOWER CHEST: See separate report of the CT of the chest. NON-CONTRASTED LIVER, SPLEEN, ADRENALS: The liver and spleen are normal. There is now a 20.8 mm righ t adrenal nodule. PANCREAS: No masses. No peripancreatic inflammatory changes. GALLBLADDER: No identified stones by CT criteria. No inflammatory changes to suggest cholecystitis. RIGHT KIDNEY AND URETER: No suspicious masses. Assessment limited by lack of IV contrast. No signif icant calcifications. No hydronephrosis or hydroureter. LEFT KIDNEY AND URETER: No suspicious masses. Assessment limited by lack of IV contrast. No signifi cant calcifications. No hydronephrosis or hydroureter. AORTA AND RETROPERITONEUM: There is focal widening of the infrarenal abdominal aorta to 25 mm. BOWEL AND PERITONEAL CAVITY: No obvious masses or inflammatory changes. No free fluid. APPENDIX: Normal. PELVIS, BLADDER, AND ABDOMINAL WALL:No abnormal masses. No free fluid. Bladder normal. BONES: No significant findings. OTHER: No other significant finding. IMPRESSION: There is new metastatic disease involving the right adrenal gland. No other significant findings in the abdomen or pelvis. COMMENT: Quality ID # 436: Final reports with documentation of one or more dose reduction techniques (e.g., Automated exposure control, adjustment of the mA and/or kV according to patient size, use of iterative reconstruction technique) TECHNICAL DOCUMENTATION: JOB ID: [id number] [employer]- All Rights Reserved Reading location - IP/workstation name: [email or web address]
--- NOTE | 2019-06-20 17:16 | RADIOLOGY REPORT (SQ) ---
EXAM DESCRIPTION: MRI HEAD COMBO COMPLETED DATE/TIME: 06/20/2019 11:06 am REASON FOR STUDY: C34.11 MALIGNANT NEOPLASM OF UPPER LOBE, RIGHT BRONCHUS OR LUNG C34.11 MALIGNANT NEOPLASM OF UPPER LOBE, RIGHT BRONCHUS OR L COMPARISON: 05/13/2018 TECHNIQUE: Multiplanar imaging includes noncontrasted T1, T2, FLAIR, Diffusion with ADC map and post gadolinium contrast T1 sequences. Images stored on PACS. CONTRAST TYPE AND DOSE: 10 mL [employer] RENAL FUNCTION: Not indicated. ACR Type II contrast agent associated with few, if any, unconfounded cases of NSF LIMITATIONS: None. FINDINGS: ANATOMY: No anomalies. Normal vascular flow voids. Pituitary fossa normal. CSF SPACES: Atrophy-induced prominence of CSF spaces and ventricles. CEREBRUM: High-signal intensity lesions scattered throughout the white matter on FLAIR imaging with d istribution suggesting chronic micro-vascular ischemic change. No evidence of hemorrhage, mass, extra axial fluid collection or acute ischemic change. No enhancing lesions. POSTERIOR FOSSA: No signal alteration. No hemorrhage. No edema, masses, or mass effect. Internal elder tory canals, cerebello-pontine angles, mastoids normal. No enhancing lesions. ORBITS: No masses. Globes normal. PARANASAL SINUSES: No fluid levels. Mucosa normal. DIFFUSION: Normal. No evidence of recent infarct. OTHER: No other significant finding. IMPRESSION: ATROPHY AND CHRONIC MICRO-VASCULAR ISCHEMIC CHANGES. OTHERWISE UNREMARKABLE MRI OF THE B RAIN WITHOUT AND WITH INTRAVENOUS GADOLINIUM CONTRAST. No metastases. EVIDENCE OF ACUTE STROKE: NO. TECHNICAL DOCUMENTATION: JOB ID: [id number] [employer]- All Rights Reserved Reading location - IP/workstation name: [email or web address]
== END ==
LOC: RAD 08:25
PROVIDERS: ATTEND Physician Assistant Medical
DX: C34.11 Malignant neoplasm of upper lobe, right bronchus or lung (principal)
CPT/HCPCS: 70553; 71250; 74176; A9576

== ENCOUNTER 2019-09-12 23:29 | Emergency (ER) | payer BC, MEDICARE ==
--- NOTE | 2019-09-13 01:02 | ER Document Report ---
ED General - General Chief Complaint: Back Pain Stated Complaint: UPPER BACK PAIN Time Seen by Provider: 09/13/19 00:59 Primary Care Provider: STACEY GIBSON MD [Primary Care Provider] - Follow up as needed Mode of Arrival: Ambulatory Information source: Patient Notes: dread Doshi RN pt alert, to pit 1 via wheelchair, c/o increase pain that began tonight and swelling to left lower extremity. pt is an active chemo pt for cancer in her right lung. pt denies mets. states she has taken her pain medication with no relief. states she fell on her left knee and then swelling began to left lower extremity. states she was ambulating with walker, and then "all of a sudden I went down". states she had on of her shaking spells during fall. Pitting edema noted to left lower extremity. pt speaking in complete sentences, denies sob. states last chemo 2 weeks ago, next treatment is this coming tuesday. my notes 73-year-old female arrives with chief complaint of left lower extremity edema and tenderness from her knee to her ankle after falling 2 weeks ago. She reports she had a shaking spell which is routine for her but this was while she was using her walker and she fell down upon her left knee with edema in her left lower extremity since this time. Patient reports she is on Plavix because she had a thrombosis when she was 16 years old while she was . Patient now has some mild cellulitis of her left lower leg with edema positive pitting compared to her right leg. Patient denies any LOC. Patient does report she has a history of lung cancer in her right chest and sees Dr. Fisher TRAVEL OUTSIDE OF THE [place] IN LAST 30 DAYS: No - HPI Onset: Other - 2 weeks ago Quality of pain: Achy Severity: Mild Associated symptoms: Other - Backache Exacerbated by: Movement Relieved by: Remaining still, Other - And taking her pain medicine Similar symptoms previously: Yes Recently seen / treated by doctor: Yes - Related Data Allergies/Adverse Reactions: cilostazol [From Pletal] Adverse Reaction (Intermediate, Verified 09/13/19 01:19) Dizziness Past Medical History - General Information source: Patient - Social History Smoking Status: Former Smoker Cigarette use (# per day): No Chew tobacco use (# tins/day): No Smoking Education Provided: No Frequency of alcohol use: None Drug Abuse: None Lives with: Family Family History: Reviewed & Not Pertinent, Other Patient has homicidal ideation: No - Past Medical History Cardiac Medical History: Reports: Hx Heart Attack, Hx Hypercholesterolemia, Hx Hypertension Denies: Hx Coronary Artery Disease Pulmonary Medical History: Reports: Hx COPD, Hx Pneumonia - A BABY Denies: Hx Asthma, Hx Bronchitis Neurological Medical History: Denies: Hx Cerebrovascular Accident, Hx Seizures Renal/ Medical History: Denies: Hx Peritoneal Dialysis Musculoskeletal Medical History: Reports Hx Arthritis Past Surgical History: Reports: Hx Abdominal Surgery - barium study 10/18/11, Hx Breast Surgery - Left mastectomy, Hx Cardiac Surgery - carotid artery cleaned, Hx Carotid Endarterectomy - left- in approximately 2012, Hx Tubal Ligation - Immunizations Hx Diphtheria, Pertussis, Tetanus Vaccination: Yes Hx Pneumococcal Vaccination: 05/16/15 Review of Systems - Review of Systems Constitutional: No symptoms reported EENT: No symptoms reported Cardiovascular: No symptoms reported Respiratory: No symptoms reported Gastrointestinal: No symptoms reported Genitourinary: No symptoms reported Female Genitourinary: No symptoms reported Musculoskeletal: No symptoms reported, See HPI, Joint swelling, Leg swelling - Left lower extremity with edema and pain Skin: No symptoms reported Hematologic/Lymphatic: No symptoms reported Neurological/Psychological: No symptoms reported Physical Exam - Vital signs Vitals: Temp Pulse Resp BP Pulse Ox 98.6 F 103 H 16 178/81 H 95 09/12/19 23:34 09/12/19 23:34 09/12/19 23:34 09/12/19 23:34 09/12/19 23:34 Interpretation: Hypertensive, Tachycardic - General General appearance: Alert In distress: Mild - HEENT Head: Normocephalic, Atraumatic Eyes: Normal Pupils: PERRL Nasal: Normal Mouth/Lips: Normal Mucous membranes: Normal Pharynx: Normal Neck: Normal - Respiratory Respiratory status: No respiratory distress Chest status: Nontender Breath sounds: Normal Chest palpation: Normal - Cardiovascular Rhythm: Regular Heart sounds: Normal auscultation Murmur: No - Abdominal Inspection: Normal Distension: No distension Bowel sounds: Normal Tenderness: Nontender - Back Back: Tender - Extremities General upper extremity: Normal inspection General lower extremity: Normal inspection - Neurological Neuro grossly intact: Yes Cognition: Normal Orientation: AAOx4 Kassandra Coma Scale Eye Opening: Spontaneous Kassandra Coma Scale Verbal: Oriented Kassandra Coma Scale Motor: Obeys Commands Kassandra Coma Scale Total: 15 Speech: Normal Cranial nerves: Normal Cerebellar coordination: Normal Motor strength normal: LUE, RUE, LLE, RLE - Psychological Associated symptoms: Normal affect - Skin Skin Temperature: Warm Skin Moisture: Dry Skin Color: Other - Nonpitting edema from knee to ankle and foot on left lower extremity with positive dorsalis pedis pulses and sensation intact Course - Vital Signs Vital signs: Temp Pulse Resp BP Pulse Ox 98.6 F 103 H 19 179/79 H 97 09/12/19 23:44 09/12/19 23:34 09/13/19 03:41 09/13/19 03:41 09/13/19 03:41 - Diagnostic Test Radiology reviewed: Reports reviewed Radiology results interpreted by me: 09/13/19 01:49 Increase in size of right lung mass per radiology Critical Care Note - Critical Care Note Total time excluding time spent on procedures (mins): 90 Discharge - Discharge Clinical Impression: Edema of left lower leg Fall Qualifiers: Encounter type: initial encounter Qualified Code(s): W19.XXXA - Unspecified fall, initial encounter Condition: Good Disposition: HOME, SELF-CARE Additional Instructions: Call personal physician today return to ER for emergencies take medicines as directed and also get a outpatient ultrasound to rule out DVT and try to keep left extremity elevated if possible To outpatient ultrasound; patient has diagnosis of left lower leg edema and tenderness and history of DVT; please obtain test and send results to personal doctor Prescriptions: Warfarin Sodium [Coumadin 5 mg Tablet] 5 mg PO QHS #30 tablet Referrals: STACEY GIBSON MD [Primary Care Provider] - Follow up as needed
--- NOTE | 2019-09-13 01:45 | RADIOLOGY REPORT (SQ) ---
EXAM DESCRIPTION: XR KNEE 3 VIEWS COMPLETED DATE/TME: 09/13/2019 00:00 CLINICAL HISTORY: 73 years, Female, Fall COMPARISON: None. NUMBER OF VIEWS: 3 TECHNIQUE: 3 views left knee LIMITATIONS: None. FINDINGS: Osteopenia. Vascular calcifications. No evidence for joint effusion. Negative for acute fracture or dislocation. Minor degenerative change. IMPRESSION: No acute osseous abnormality copyright 2010 [employer]- All Rights Reserved
--- NOTE | 2019-09-13 01:46 | RADIOLOGY REPORT (SQ) ---
EXAM DESCRIPTION: XR CHEST 2 VIEWS COMPLETED DATE/TME: 09/13/2019 00:00 CLINICAL HISTORY: 73 years, Female, Cancer pain in chest COMPARISON: 2-19 chest NUMBER OF VIEWS: 2 TECHNIQUE: Portable chest LIMITATIONS: None. FINDINGS: The heart size is normal. [id number] catheter in place. Osteopenia. Interval increase in size of a poorly defined mass of the right upper lobe/apex. No pneumothorax.. IMPRESSION: Interval increase in size of a poorly defined right upper lobe mass. copyright 2010 [employer]- All Rights Reserved
--- NOTE | 2019-09-13 02:12 | RADIOLOGY REPORT (SQ) ---
EXAM DESCRIPTION: XR TIBIA FIBULA 2 VIEWS COMPLETED DATE/TME: 09/13/2019 01:39 CLINICAL HISTORY: 73 years, Female, fall COMPARISON: None. NUMBER OF VIEWS: 2 TECHNIQUE: 2 view left tibia fibula LIMITATIONS: None. FINDINGS: Osteopenia. Mild diffuse soft tissue swelling of the leg. No acute fracture or dislocation IMPRESSION: No acute osseous abnormality copyright 2011 [employer]- All Rights Reserved
[2019-09-13] MEDS ORDERED: CLONIDINE HCL 0.1 MG TABLET PO ONE (04:13)
[2019-09-13 04:21] VITALS: BP 203/86
== END 2019-09-13 04:45 | disposition home or self-care (01) ==
LOC: ER 23:29
DX: R60.9 Edema, unspecified (principal); M54.6 Pain in thoracic spine; C34.91 Malignant neoplasm of unspecified part of right bronchus or lung; W19.XXXA Unspecified fall, initial encounter; E78.00 Pure hypercholesterolemia, unspecified; I10 Essential (primary) hypertension; J44.9 Chronic obstructive pulmonary disease, unspecified; Z87.891 Personal history of nicotine dependence; I25.2 Old myocardial infarction; Z79.02 Long term (current) use of antithrombotics/antiplatelets
CPT/HCPCS: 71046; 99285

== ENCOUNTER → 2019-09-14 | Outpatient (CLI) | payer BC, MEDICARE ==
--- NOTE | 2019-09-14 09:49 | RADIOLOGY REPORT (SQ) ---
EXAM DESCRIPTION: VENOUS UNILATERAL LOWER IMAGES COMPLETED DATE/TIME: 09/14/2019 9:30 am REASON FOR STUDY: LLE EDEMA C34.11 MALIGNANT NEOPLASM OF UPPER LOBE, RIGHT BRONCHUS OR L R60.0 LOC ALIZED EDEMA COMPARISON: None. TECHNIQUE: Dynamic and static ferrer scale and color images acquired of the left leg venous system. Se lected spectral images acquired with additional compression and augmentation maneuvers. The contralat eral common femoral vein and saphenofemoral junction were also imaged. Images stored on PACS. LIMITATIONS: None. FINDINGS: COMMON FEMORAL: Normal phasicity, compression and augmentation. No visualized echogenic ma terial on ferrer scale. No defects on color images. FEMORAL: Normal compression and augmentation. No visualized echogenic material on ferrer scale. No defe cts on color images. POPLITEAL: Normal compression, augmentation. No visualized echogenic material on ferrer scale. No defec ts on color images. CALF VESSELS: Normal compression, augmentation. No visualized echogenic material on ferrer scale. No de fects on color images. GSV and SSV: Normal compression, augmentation. No visualized echogenic material on ferrer scale. No def ects on color images. ANY DEEP VENOUS INSUFFICIENCY: Not evaluated. ANY EVIDENCE OF POPLITEAL CYST: No. OTHER: No other significant finding. CONTRALATERAL COMMON FEMORAL VEIN AND SAPHENOFEMORAL JUNCTION: Normal phasicity, compression and augmentation. No visualized echogenic material on ferrer scale. No de fects on color images. IMPRESSION: NO EVIDENCE OF DVT OR SVT IN THE LEFT LEG. TECHNICAL DOCUMENTATION: JOB ID: [id number] 2010 [employer]- All Rights Reserved Reading location - IP/workstation name: [email or web address]
--- NOTE | 2019-09-14 10:23 | RADIOLOGY REPORT (SQ) ---
EXAM DESCRIPTION: CT CHEST WITH IMAGES COMPLETED DATE/TIME: 09/14/2019 9:19 am REASON FOR STUDY: LUNG CA (C34.11) C34.11 MALIGNANT NEOPLASM OF UPPER LOBE, RIGHT BRONCHUS OR L R60 .0 LOCALIZED EDEMA COMPARISON: 06/20/2019 TECHNIQUE: CT scan of the chest performed using helical scanning technique with dynamic intravenous contrast injection. Images reviewed with lung, soft tissue and bone windows. Reconstructed coronal and sagittal MPR and MIP images reviewed. All images stored on PACS. All CT scanners at this facility use dose modulation, iterative reconstruction, and/or weight based d osing when appropriate to reduce radiation dose to as low as reasonably achievable (ALARA). [facility]: Dose Right [facility]: CareDose [facility]: Dose Right [facility]: Teradose 4D [facility]: [employer] CONTRAST TYPE AND DOSE: contrast/concentration: Isovue 300.00 mg/ml; Total Contrast Delivered: 80.0 ml; Total Saline Delivered: 55.0 ml RENAL FUNCTION: Creatinine 1.5 RADIATION DOSE: CT Rad equipment meets quality standard of care and radiation dose reduction techniq ues were employed. CTDIvol: 6.0 mGy. DLP: 232 mGy-cm. . LIMITATIONS: None. FINDINGS: LUNGS AND PLEURA: There is been interval decrease in size of the right upper lobe mass loco suring approximately 4.6 x 3.2 cm (series 2, image 12), previously 5.7 x 4.6 cm. There is central hy poattenuation in an area of cavitation suggestive of necrosis. There is stable size of a right middl e lobe nodule measuring 7 mm (series 4, image 53). There are multiple additional subcentimeter bilat eral pulmonary nodules which appear stable. No new discrete nodules or masses. No pleural effusion or pneumothorax. HILAR AND MEDIASTINAL STRUCTURES: Stable shotty mediastinal adenopathy. Minimal interval decrease in size of the previously referenced nodes. Peritracheal node measures 13.2 mm in short axis (series 2 , image 18), previously 14.8 mm. Precarinal node measures 9.6 mm in short axis (series 2, image 24), previously 10.6 mm. No new discrete adenopathy. HEART AND VASCULAR STRUCTURES: Cardiomegaly with three-vessel coronary atherosclerosis. HARDWARE: None in the chest. UPPER ABDOMEN: Interval increase in size of the previously seen right adrenal nodule measuring 29 x 2 3 mm, previously 22 x 18 mm. No new intra-abdominal findings on the limited evaluation. THYROID AND OTHER SOFT TISSUES: No masses. No adenopathy. BONES: There is been interval increased bony destruction of the right anterolateral 1st rib. No jaime tional new bony abnormality. OTHER: No other significant finding. IMPRESSION: 1. Interval decrease in size of the right upper lobe mass measuring approximately 4.6 x 3.2 cm. Central hypoattenuation and cavitation suggestive of necrosis. There has been interval inc rease in bony destruction of the right 1st anterolateral rib. 2. Stable multiple additional bilateral subcentimeter pulmonary nodules. Stable to decreased medias tinal lymph nodes. 3. Interval increase in size of the right adrenal metastatic nodule measuring 29 x 23 mm, previously 22 x 18 mm. TECHNICAL DOCUMENTATION: JOB ID: [id number] Quality ID # [id number]: Final reports with documentation of one or more dose reduction techniques (e.g., Au tomated exposure control, adjustment of the mA and/or kV according to patient size, use of iterative reconstruction technique) 2010 [employer]- All Rights Reserved Reading location - IP/workstation name: COPYRIGHT [email or web address]-
== END ==
LOC: RAD 07:44
PROVIDERS: ATTEND Internal Medicine Hematology & Oncology
DX: C34.11 Malignant neoplasm of upper lobe, right bronchus or lung (principal); R60.0 Localized edema
CPT/HCPCS: 82565; 93971; 71260; J1642

== ENCOUNTER 2019-09-16 17:30 | Emergency (ER) | payer BC, MEDICARE ==
--- NOTE | 2019-09-16 17:59 | ER Document Report ---
ED Medical Screen (RME) - General Chief Complaint: Back Pain Stated Complaint: BACK PAIN Time Seen by Provider: 09/16/19 17:57 Primary Care Provider: JAMESON GONZALEZ MD [Primary Care Provider] - Follow up as needed Mode of Arrival: Wheelchair Information source: Patient Notes: 73-year-old female presented to ED with complaint of back pain. She is a lung cancer pain who has intermittent back pain. She states she is taking 2 over a pain pill since 4 PM and is not getting any relief from her back pain. She states she went out to eat with her about 3 or 4:00 and came home and the pain will not get any better. She is a patient of Dr. Beasley. I have greeted and performed a rapid initial assessment of this patient. A comprehensive ED assessment and evaluation of the patient, analysis of test results and completion of medical decision making process will be conducted by an additional ED providers. TRAVEL OUTSIDE OF THE [place] IN LAST 30 DAYS: No - Related Data Allergies/Adverse Reactions: cilostazol [From Pletal] Adverse Reaction (Intermediate, Verified 09/13/19 01:19) Dizziness Past Medical History - Past Medical History Cardiac Medical History: Reports: Hx Heart Attack, Hx Hypercholesterolemia, Hx Hypertension Denies: Hx Coronary Artery Disease Pulmonary Medical History: Reports: Hx COPD, Hx Pneumonia - A BABY Denies: Hx Asthma, Hx Bronchitis Neurological Medical History: Denies: Hx Cerebrovascular Accident, Hx Seizures Renal/ Medical History: Denies: Hx Peritoneal Dialysis Musculoskeltal Medical History: Reports Hx Arthritis Past Surgical History: Reports: Hx Abdominal Surgery - barium study 10/18/11, Hx Breast Surgery - Left mastectomy, Hx Cardiac Surgery - carotid artery cleaned, Hx Carotid Endarterectomy - left- in approximately 2012, Hx Tubal Ligation - Immunizations Hx Diphtheria, Pertussis, Tetanus Vaccination: Yes Doctor's Discharge - Discharge Referrals: JAMESON GONZALEZ MD [Primary Care Provider] - Follow up as needed
--- NOTE | 2019-09-16 18:42 | RADIOLOGY REPORT (SQ) ---
EXAM DESCRIPTION: L SPINE WHOLE IMAGES COMPLETED DATE/TIME: 09/16/2019 5:21 pm REASON FOR STUDY: Back pain history lung cancer COMPARISON: None. NUMBER OF VIEWS: Five views including obliques. TECHNIQUE: AP, lateral, oblique, and sacral radiographic images acquired of the lumbar spine. LIMITATIONS: None. FINDINGS: MINERALIZATION: Osteopenia. SEGMENTATION: Normal. No transitional anatomy. ALIGNMENT: Normal. VERTEBRAE: Maintained height. No fracture or worrisome bone lesion. DISCS: Degenerative disc disease with loss of intervertebral disc heights at multiple levels. POSTERIOR ELEMENTS: Pedicles and facets are intact. No pars defect or posterior arch defects. HARDWARE: None in the spine. PARASPINAL SOFT TISSUES: Vascular calcifications in the aorta and branches. PELVIS: Intact as visualized. No fractures or worrisome bone lesions. SI joints intact. OTHER: No other significant finding. IMPRESSION: No acute fracture or dislocation of the lumbar spine. Mild spondylosis and degenerative disc disease. TECHNICAL DOCUMENTATION: JOB ID: [id number] 2010 [employer]- All Rights Reserved Reading location - IP/workstation name: [email or web address]
[2019-09-16] MEDS ORDERED: MORPHINE SULFATE 10 MG/ML INJ IV ONE (18:53)
--- NOTE | 2019-09-16 18:55 | ER Document Report ---
ED General Pain - General Chief Complaint: Back Pain Stated Complaint: BACK PAIN Time Seen by Provider: 09/16/19 17:57 Primary Care Provider: JAMESON GONZALEZ MD [Primary Care Provider] - Follow up as needed Mode of Arrival: Wheelchair Information source: Patient Notes: 73 y/o female past medical history significant for Lung Ca diagnosed May 2019., HTN, HDL presents to the emergency room complaining of worsening upper back pain. Patient states she took two doses of her Oxycodone and one dose of her Xrampca ER with minimal relief. Denies chest pain, shortness of breath, no worsening difficulty breathing, no recent trauma or injury. States was seen a few weeks ago after a fall but has not had any falls since. States she is here for pain control. Scheduled for chemo tomorrow. TRAVEL OUTSIDE OF THE [place] IN LAST 30 DAYS: No - Related Data Allergies/Adverse Reactions: cilostazol [From Pletal] Adverse Reaction (Intermediate, Verified 09/16/19 17:59) Dizziness Past Medical History - General Information source: Patient - Social History Smoking Status: Former Smoker Chew tobacco use (# tins/day): No Frequency of alcohol use: None Drug Abuse: None Lives with: Family Family History: Reviewed & Not Pertinent, Other Patient has homicidal ideation: No - Past Medical History Cardiac Medical History: Reports: Hx Heart Attack, Hx Hypercholesterolemia, Hx Hypertension Denies: Hx Coronary Artery Disease Pulmonary Medical History: Reports: Hx COPD, Hx Pneumonia - A BABY Denies: Hx Asthma, Hx Bronchitis Neurological Medical History: Denies: Hx Cerebrovascular Accident, Hx Seizures Renal/ Medical History: Denies: Hx Peritoneal Dialysis Musculoskeletal Medical History: Reports Hx Arthritis Past Surgical History: Reports: Hx Abdominal Surgery - barium study 10/18/11, Hx Breast Surgery - Left mastectomy, Hx Cardiac Surgery - carotid artery cleaned, Hx Carotid Endarterectomy - left- in approximately 2012, Hx Tubal Ligation - Immunizations Hx Diphtheria, Pertussis, Tetanus Vaccination: Yes Hx Pneumococcal Vaccination: 05/16/15 Review of Systems - Review of Systems Constitutional: No symptoms reported Cardiovascular: No symptoms reported Respiratory: No symptoms reported Musculoskeletal: Back pain Skin: No symptoms reported -: Yes All other systems reviewed and negative Physical Exam - Vital signs Vitals: Temp Pulse Resp BP Pulse Ox 98.7 F 108 H 20 176/78 H 90 L 09/16/19 17:52 09/16/19 17:52 09/16/19 17:52 09/16/19 17:52 09/16/19 17:52 - General General appearance: Appears well, Alert In distress: Mild - HEENT Head: Normocephalic, Atraumatic Eyes: Normal Pupils: PERRL - Respiratory Respiratory status: No respiratory distress Chest status: Nontender Breath sounds: Normal Chest palpation: Normal - Cardiovascular Rhythm: Tachycardia Heart sounds: Normal auscultation Murmur: No - Back Back: Normal, Nontender. No: CVA tenderness, Vertebra tenderness - Neurological Neuro grossly intact: Yes Cognition: Normal Orientation: AAOx4 Speech: Normal Motor strength normal: LUE, RUE - Psychological Associated symptoms: Normal affect, Normal mood - Skin Skin Temperature: Warm Skin Color: Normal Course - Re-evaluation Re-evalutation: 09/16/19 20:26 Patient is resting comfortably states that her pain has improved. Counseled on need to follow up with Dr. Gonzalez tomorrow. Given strict return to the emergency room guidelines. Return to the emergency room for any new or worsening symptoms. All questions were answered. Patient verbalizes understanding and agrees with plan of care. 09/16/19 20:29 - Vital Signs Vital signs: Temp Pulse Resp BP Pulse Ox 98.4 F 115 H 20 170/85 H 100 09/16/19 20:38 09/16/19 20:38 09/16/19 20:38 09/16/19 20:38 09/16/19 20:38 - Laboratory Result Diagrams: 09/16/19 19:39 09/16/19 19:39 Laboratory results interpreted by me: 09/16/19 18:25 Urine Protein 30 H Leukocyte Esterase Rfl SMALL H Discharge - Discharge Clinical Impression: Chronic pain Qualifiers: Chronic pain type: due to neoplasm Qualified Code(s): G89.3 - Neoplasm related pain (acute) (chronic) Condition: Stable Disposition: HOME, SELF-CARE Instructions: Chronic Pain Control ([facility]) Additional Instructions: Follow up tomorrow as scheduled. Return for any new or worsening symptoms. Continue your current medications. Referrals: JAMESON GONZALEZ MD [Primary Care Provider] - Follow up as needed
[2019-09-16 18:57] LABS: APPEARANCE,URINE SLIGHTLY-CLOUDY; BILIRUBIN,URINE NEGATIVE (NEGATIVE); COLOR,URINE YELLOW; GLUCOSE, URINE NEGATIVE (NEGATIVE); KETONES,URINE NEGATIVE (NEGATIVE); PROTEIN,URINE 30 mg/dL (NEGATIVE); URINE SPECIFIC GRAVITY 1.015; UROBILINOGEN,URINE NEGATIVE mg/dL (<2.0)
[2019-09-16 20:42] VITALS: BP 170/85
== END 2019-09-16 20:57 | disposition home or self-care (01) ==
LOC: ER 17:30
DX: G89.3 Neoplasm related pain (acute) (chronic) (principal); M54.9 Dorsalgia, unspecified; C34.90 Malignant neoplasm of unspecified part of unspecified bronchus or lung; R00.0 Tachycardia, unspecified; I10 Essential (primary) hypertension; I25.2 Old myocardial infarction; J44.9 Chronic obstructive pulmonary disease, unspecified; Z87.891 Personal history of nicotine dependence
CPT/HCPCS: 36591; 99283; 96374; 87086; 81001; 72110; J2270

== ENCOUNTER 2019-09-20 15:56 | Emergency (ER) | payer BC, MEDICARE ==
[2019-09-20 16:33] LABS: ABSOLUTE EOSINOPHILS # (AUTO) 0.1 10^3/uL (0.0-0.6); ABSOLUTE LYMPHOCYTES (AUTO) 0.7 10^3/uL (0.5-4.7); ABSOLUTE MONOCYTES (AUTO) 0.2 10^3/uL (0.1-1.4); ABSOLUTE NEUT (AUTO) 1.6 10^3/uL (1.7-8.2); BASOPHILS % (AUTO) 0.4 % (0-2); EOSINOPHILS % (AUTO) 3.6 % (0-6); HEMATOCRIT 24.6 % (36.0-47.0); HEMOGLOBIN 8.2 g/dL (12.0-15.5); LYMPHOCYTES % (AUTO) 28.2 % (13-45); MEAN CORPUSCULAR HEMOGLOBIN 29.8 pg (27.0-33.4); MEAN CORPUSCULAR HGB CONC 33.5 g/dL (32.0-36.0); MONOCYTES % (AUTO) 7.5 % (3-13); PLATELET COUNT 607 10^3/uL (150-450); RED BLOOD COUNT 2.76 10^6/uL (3.72-5.28); RED CELL DISTRIBUTION WIDTH 19.1 % (11.5-14.0); SEGMENTED NEUTROPHILS % (AUTO) 60.3 % (42-78); TOTAL CELLS COUNTED % (AUTO) 100 %; WHITE BLOOD COUNT 2.6 10^3/uL (4.0-10.5)
[2019-09-20 16:48] LABS: MEAN CORPUSCULAR VOLUME 89 fl (80-97)
[2019-09-20 17:45] LABS: ALBUMIN 3.4 g/dL (3.5-5.0); ALKALINE PHOSPHATASE 82 U/L (38-126); ANION GAP 8 (5-19); ASPARTATE AMINO TRANSFERASE 46 U/L (14-36); BILIRUBIN,TOTAL 0.4 mg/dL (0.2-1.3); BLOOD UREA NITROGEN 31 mg/dL (7-20); CALCIUM 8.6 mg/dL (8.4-10.2); CARBON DIOXIDE 26 mmol/L (22-30); CHLORIDE 99 mmol/L (98-107); GLUCOSE 102 mg/dL (75-110); POTASSIUM 4.4 mmol/L (3.6-5.0); TOTAL PROTEIN 6.2 g/dL (6.3-8.2)
[2019-09-20] MEDS ORDERED: NORMAL SALINE 1000 ML 1,000 ML IV ONE (19:22)
[2019-09-20 20:48] LABS: APPEARANCE,URINE CLEAR; BILIRUBIN,URINE NEGATIVE (NEGATIVE); COLOR,URINE YELLOW; GLUCOSE, URINE NEGATIVE (NEGATIVE); KETONES,URINE NEGATIVE (NEGATIVE); LEUKOCYTE ESTERASE,URINE NEGATIVE (NEGATIVE); NITRITE,URINE NEGATIVE (NEGATIVE); PROTEIN,URINE NEGATIVE (NEGATIVE); URINE SPECIFIC GRAVITY 1.006; UROBILINOGEN,URINE NEGATIVE mg/dL (<2.0)
--- NOTE | 2019-09-20 21:33 | RADIOLOGY REPORT (SQ) ---
EXAM DESCRIPTION: Noncontrast CT head CLINICAL HISTORY: 73 years Female AMS TECHNIQUE: Noncontrast CT head. All CT scans at this facility use dose modulation, iterative reconstruction, and/or weight based dosing when appropriate to reduce radiation dose to as low as reasonably achievable. COMPARISON: MRI brain June 20, 2019 FINDINGS: There is moderate cerebral volume loss. Patchy periventricular and white matter hypodensities are nonspecific, but in a pattern compatible with chronic microvascular ischemic change. Incidental note is made of mineralization within the bilateral basal ganglia. No acute hemorrhage or mass effect. Although examination is not optimized to evaluate intracranial vasculature given noncontrast technique, there is evidence of atherosclerotic vascular disease involving the bilateral internal carotid arteries and V4 segments. Visualized portions of paranasal sinuses are clear. There is soft tissue versus debris within the left external auditory canal. Under pneumatization of the bilateral mastoid air cells, correlate for potential postoperative change. Visualized portions of the calvarium are within normal limits. Arthritic changes of the upper cervical spine are incompletely included in the [id number]. IMPRESSION: 1. No acute intracranial hemorrhage or mass effect. Findings compatible with volume loss and chronic microvascular ischemic change are present. If there is clinical concern for acute stroke, consider MRI brain as a more sensitive evaluation.
--- NOTE | 2019-09-20 21:40 | EKG REPORT ---
SEVERITY:- ABNORMAL ECG - SINUS RHYTHM LVH WITH SECONDARY REPOLARIZATION ABNORMALITY : Confirmed by: Jacinto Erickson MD 20-Sep-2019 21:40:26
[2019-09-20 22:02] LABS: PROTHROMBIN TIME 15.3 SEC (11.4-15.4)
--- NOTE | 2019-09-20 23:39 | RADIOLOGY REPORT (SQ) ---
EXAM DESCRIPTION: X-RAY CHEST- One View CLINICAL HISTORY: Weakness COMPARISON: CT chest September 14, 2019 TECHNIQUE: Single view of the chest. FINDINGS: Overlying EKG leads. Known right upper lobe mass with cavitation is better detailed on previously performed CT. A right chest wall port directly overlies this region with distal tip in the expected location of the distal superior vena cava. Additional multiple bilateral pulmonary nodules are also better visualized with CT chest. No discrete pleural effusion or pneumothorax is identified. The pulmonary vascularity is normal. The cardiomediastinal silhouette is stable in size. Atherosclerotic vascular calcifications are present. The osseous structures are grossly stable in appearance. IMPRESSION: Known right upper lobe mass with cavitation is redemonstrated, better evaluated on prior CT. Additionally, known multiple pulmonary nodules are also better evaluated on prior CT.
[2019-09-20 23:41] VITALS: BP 153/81
--- NOTE | 2019-09-21 01:30 | ER Document Report ---
Entered by DIONY RAY SCRIBE 09/20/192024 Acting as scribe for:DIVYA QUINTANA DO ED Dizziness/Weakness - General Chief Complaint: General Weakness Stated Complaint: WEAKNESS Time Seen by Provider: 09/20/19 17:35 Primary Care Provider: JAMESON FISHER MD [ACTIVE STAFF] - Follow up tomorrow CHUY WHITNEY MD [Primary Care Provider] - Follow up in 3-5 days Mode of Arrival: Medic Information source: Patient Cannot obtain history due to: Dementia Notes: This 73 year old female patient presents to the emergency department this evening for "jerking spells" per patient. Patient is pleasantly demented so obtaining meaningful history is difficult. Patient states earlier today when she tried to walk to the bathroom she was unsteady on her feet and "kept stumbling". Patient reports that she never fell, stating that she was gently sat to the ground by her and granddaughter. Patient reports she has had a few weakness spells like this over the last few weeks but denies ever falling. Patient states that she is on blood thinners but she is unsure which one. TRAVEL OUTSIDE OF THE [place] IN LAST 30 DAYS: No - Related Data Allergies/Adverse Reactions: cilostazol [From Pletal] Adverse Reaction (Intermediate, Verified 09/16/19 17:59) Dizziness Past Medical History - General Information source: Patient, [facility] Records Cannot obtain history due to: Dementia - Social History Smoking Status: Unknown if Ever Smoked Cigarette use (# per day): No Frequency of alcohol use: None Drug Abuse: None Lives with: Family Family History: Reviewed & Not Pertinent, Other Patient has homicidal ideation: No - Past Medical History Cardiac Medical History: Reports: Hx Heart Attack, Hx Hypercholesterolemia, Hx Hypertension Pulmonary Medical History: Reports: Hx COPD, Hx Pneumonia - A BABY Musculoskeletal Medical History: Reports Hx Arthritis Past Surgical History: Reports: Hx Abdominal Surgery - barium study 10/18/11, Hx Breast Surgery - Left mastectomy, Hx Cardiac Surgery - carotid artery cleaned, Hx Carotid Endarterectomy - left- in approximately 2012, Hx Tubal Ligation - Immunizations Hx Diphtheria, Pertussis, Tetanus Vaccination: Yes Hx Pneumococcal Vaccination: 05/16/15 Review of Systems - Review of Systems Constitutional: See HPI, Weakness EENT: No symptoms reported Cardiovascular: No symptoms reported Respiratory: No symptoms reported Gastrointestinal: No symptoms reported Genitourinary: No symptoms reported Female Genitourinary: No symptoms reported Musculoskeletal: No symptoms reported Skin: No symptoms reported Hematologic/Lymphatic: No symptoms reported Neurological/Psychological: See HPI, Other - "jerking spells" -: Yes All other systems reviewed and negative Physical Exam - Vital signs Vitals: Resp Pulse Ox 18 97 09/20/19 16:13 09/20/19 16:13 - Notes Notes: Physical Exam: General: Alert, appears chronically ill. Drowsy but easily arousable. HEENT: Normocephalic. Atraumatic. PERRL. Extraocular movements intact. Oropharynx clear. Dry mucous membranes. Neck: Supple. Non-tender. Respiratory: No respiratory distress. Clear and equal breath sounds bilaterally. Port in right anterior chest wall. Cardiovascular: Regular rate and rhythm. Abdominal: Normal Inspection. Non-tender. No distension. Normal Bowel Sounds. Back: No gross abnormalities. Extremities: Moves all four extremities. Upper extremities: Normal inspection. Normal ROM. Lower extremities: Normal inspection. No edema. Normal ROM. Neurological: Normal cognition. AAOx4. Normal speech. Psychological: Normal affect. Normal Mood. Skin: Warm. Dry. Normal color. Course - Re-evaluation Re-evalutation: 09/20/19 22:14 Spoke to environmental health manager oncologist, Dr. Randolph who agrees to see the patient who agrees with d/c to follow up tomorrow in clinic. 09/20/19 22:46 Just had a lengthy conversation with the patient. Discussed with her the importance of not taking too much pain medication. Also educated her on fluid intake. 09/20/19 22:[address] Whitney who is her PCP who agree's with dispo. Will f/u tomorrow with patient. Patient is a 73-year-old female currently undergoing chemotherapy for lung cancer. She had a recent increase of her pain medication and has been sleeping most of yesterday. Has had decreased p.o. intake. States that she fell off balance this morning. Much improved after fluids. Patient was a little drowsy when she first came in and is now at her baseline. Feels much better would like to go home. Discussed with her oncologist and her primary care doctor. She has an oncology appointment tomorrow and her primary we will follow-up with her on how she is feeling and her blood work. Return if any worsening or concerning symptoms. Understands agrees with plan. No evidence for stroke. No fall today. Stable for discharge. - Vital Signs Vital signs: Temp Pulse Resp BP Pulse Ox 98 F 15 153/81 H 96 09/20/19 17:04 09/20/19 23:25 09/20/19 23:25 09/20/19 22:01 - Laboratory Result Diagrams: 09/20/19 16:10 09/20/19 16:10 Laboratory results interpreted by me: 09/20/19 09/20/19 09/20/19 16:10 16:10 16:10 WBC 2.6 L RBC 2.76 L Hgb 8.2 L Hct 24.6 L RDW 19.1 H Plt Count 607 H Absolute Neuts (auto) 1.6 L Sodium 132.7 L BUN 31 H Creatinine 1.68 H Est GFR ( Amer) 36 L Est GFR (MDRD) Non-Af 30 L AST 46 H Total Protein 6.2 L Albumin 3.4 L TSH 8.52 H - Diagnostic Test Radiology reviewed: Reports reviewed Discharge - Discharge Clinical Impression: Weakness, Dehydration, Medication side effects Hypothyroidism Qualifiers: Hypothyroidism type: unspecified Qualified Code(s): E03.9 - Hypothyroidism, unspecified Condition: Stable Disposition: HOME, SELF-CARE Instructions: Dehydration ([facility]), Medication Side Effects ([facility]) Additional Instructions: Please make sure you are not taking too much of your pain medication at home. Please make sure that you are drinking enough fluids. Please see Dr. Fisher tomorrow as you are scheduled to. Forms: Elevated Blood Pressure Referrals: CHUY WHITNEY MD [Primary Care Provider] - Follow up in 3-5 days JAMESON FISHER MD [ACTIVE STAFF] - Follow up tomorrow I personally performed the services described in the documentation, reviewed and edited the documentation which was dictated to the scribe in my presence, and it accurately records my words and actions.
== END 2019-09-20 23:41 | disposition home or self-care (01) ==
LOC: ER 15:56
DX: E86.0 Dehydration (principal); R53.1 Weakness; R29.818 Other symptoms and signs involving the nervous system; R26.81 Unsteadiness on feet; R40.0 Somnolence; T50.905A Adverse effect of unspecified drugs, medicaments and biological substances, initial encounter; E03.9 Hypothyroidism, unspecified; F03.90 Unspecified dementia, unspecified severity, without behavioral disturbance, psychotic disturbance, mood disturbance, and anxiety; Z79.01 Long term (current) use of anticoagulants; I10 Essential (primary) hypertension; I25.2 Old myocardial infarction; J44.9 Chronic obstructive pulmonary disease, unspecified; C34.90 Malignant neoplasm of unspecified part of unspecified bronchus or lung; Z79.899 Other long term (current) drug therapy
CPT/HCPCS: 93005; 99285; 96360; 96361; 36415; 84443; 85025; 85610; 80053; 81001; 71045; 70450; 93010; J7030; J1642